=== PATIENT | female | born 1935 | race Caucasian/White ===

== ENCOUNTER 2017-07-23 10:48 | Inpatient (IN) | payer MEDICARE ==
[2017-07-23] MEDS ORDERED: HYDROmorphone 0.5 MG/0.5 ML SYRINGE ONE (11:42)
[2017-07-23] MEDS ORDERED: Gabapentin 300 MG CAP PO SCH (11:45)
[2017-07-23 11:48] LABS: #Lymphocytes 0.8 thou/uL (1.20-3.40); #Monocytes 0.5 thou/uL (0.11-0.59); #Neutrophils 9.4 thou/uL (1.40-6.50); %Basophils 0.1 % (0.0-1.0); %Eosinophils 0.2 % (0.0-10.0); %Lymphocytes 7.5 % (21.0-51.0); %Monocytes 4.8 % (0.0-10.0); %Neutrophils 87.4 % (42.0-75.0); Hemoglobin 15.5 g/dL (12.0-16.0); Mean Corpuscular HGB CONC 34.8 g/dL (32.0-36.0); Mean Corpuscular Hemoglobin 34.1 pg (27.0-31.0); Mean Corpuscular Volume 98.1 fl (81.0-99.0); Mean Platelet Volume 7.2 fL (7.4-10.4); Platelet Count 327 thou/uL (130-400); RBC Distribution Width 11.4 % (11.5-14.5); Red Blood Cell (RBC) Count 4.56 mill/uL (4.20-5.40); White Blood Cell (WBC) Count 10.8 thou/uL (4.8-10.8)
[2017-07-23 11:52] LABS: Bilirubin Negative (Negative); Blood, Urine Negative (Negative); Clarity CLEAR (Clear); Glucose, Urine (Dipstick) Negative (Negative); Leukocyte Small (Negative); Nitrite Negative (Negative); Protein, Urine (Dipstick) Negative (Neg-Trace); Specific Gravity, Urine 1.021 (1.002-1.036); Urobilinogen 0.2 mg/dL (0.2-1.0); pH, Urine 6.5 (5.0-9.0)
[2017-07-23 11:54] LABS: Bacteria/HPF None Seen HPF (None Seen); Hyaline Casts/LPF 0-3 HYALINE CAST LPF (0-3 Hyaline); Squamous Epithelial 0-3 HPF (0-3)
[2017-07-23 12:10] LABS: ALT (SGPT) 22 U/L (8-55); AST (SGOT) 14 U/L (5-34); Albumin 4.3 g/dL (3.4-4.8); Alkaline Phosphatase 76 U/L (40-150); Anion Gap 16 mmol/L (10-20); BUN (Urea Nitrogen) 18 mg/dL (9.8-20.1); Bilirubin, Total 0.6 mg/dL (0.2-1.2); Calc. Creatinine Clearance 0 mL/min (70-130); Calcium 9.6 mg/dL (7.8-10.44); Carbon Dioxide 21 mmol/L (23-31); Chloride 98 mmol/L (98-107); Estimated GFR-MDRD 69; Glucose 200 mg/dL (83-110); Potassium 3.9 mmol/L (3.5-5.1); Protein, Total 7.3 g/dL (6.0-8.3); Sodium 131 mmol/L (136-145)
[2017-07-23] MEDS ORDERED: Diazepam 5 MG TAB ONE (13:26)
[2017-07-23] MEDS ORDERED: Ondansetron HCl/PF 4 MG/2 ML Vial IVP PRN (17:08)
[2017-07-23] MEDS: HYDROcodone/Acetaminophen 10/325 mg Tablet PO PRN (17:44)
[2017-07-23 20:01] VITALS: BMI 28.3
[2017-07-23] MEDS: Docusate 100 MG CAP PO SCH (20:27)
[2017-07-23] MEDS: Gabapentin 100 MG CAP PO SCH (20:27)
[2017-07-23] MEDS: Fentanyl 100 MCG/2 ML VIAL SLOW IVP PRN (20:27)
[2017-07-23] MEDS: Famotidine/PF 20 mg/2ml Vial SLOW IVP SCH (20:27)
--- NOTE | 2017-07-23 23:59 | HP ---
DATE OF ADMISSION: 07/23/2017 CHIEF COMPLAINT: Left hip pain. HISTORY OF PRESENT ILLNESS: The patient is an 82-year-old female who had injection for brittney n management of her left hip/sciatica pain by Dr. Woods and soon after the shot, she developed quite severe pain in the left hip radiating down to the left knee, not further down than the knee. A pparently, she went to the emergency room and she was given Dilaudid and she was discharged on I kj keaton Lyrica and prednisone for 5 days, 20 mg. Also, she had hydrocodone 10/325 mg tablets, 1 tablet e very 4 hours p.r.n. as needed for the pain while at home. Subsequently, Dr. Woods called crow rm with ibuprofen prescription in and she took 3 doses of this. She is in severe pain. She rate s it at 10/10. She got to the emergency room and received Dilaudid and she felt better for approxima tely an hour and the pain came back. PAST MEDICAL HISTORY: Positive for, 1. Atrial fibrillation. 2. Hypothyroidism. 3. Hypertension. 4. Gastroesophageal reflux disease. 5. Chronic back pain. PAST SURGICAL HISTORY: Back surgery x3, knee replacement surgery, hysterectomy, bladder suspension, ear surgery, and foot surgery. FAMILY HISTORY: Mother and father at old age of unknown causes. ALLERGIES: MORPHINE, SULFA, AND PREDNISONE. SOCIAL HISTORY: She is an ex-smoker and ex-drinker. She quit several years ago. She does not use a ny illicit drugs. MEDICATIONS: She is on digoxin 0.25 mg once a day, valsartan 160 mg twice a day, alprazolam 0.5 mg t wice a day, Nexium 22.5 mg twice a day, Synthroid 50 mcg once a day, Pradaxa 150 mg twice a day, Patti lax, hydrocodone/APAP 10/325 mg, also on levofloxacin 500 mg once a day. Apparently, she has been tr eated for UTI with levofloxacin. REVIEW OF SYSTEMS: Constitutional: Negative for fever or chills. HEENT: Negative for headache or dizziness. Cardiovascular: Negative for chest pain or shortness of breath. Pulmonary: Negative fo r hemoptysis or cough. Gastrointestinal: Negative for nausea. Positive for constipation. Genitour inary: Negative for hematuria. Positive for dysuria, which improved. Neurologic: Positive for rut bility to walk secondary to amount of pain she has. Dermatologic: Negative for erythema or rash. P sychiatric: Negative for suicidal or homicidal ideations. PHYSICAL EXAMINATION: GENERAL: She is in pain during my visit. VITAL SIGNS: Blood pressure is 113/56, pulse is 85, respiratory rate is 14, and pulse oximetry is 94 % on room air. HEENT: Head is atraumatic, normocephalic. Eyes are PERRLA. Conjunctivae are pinkish. Oral mucosa is moist. NECK: Supple. No lymphadenopathy. Thyroid is not palpable. LUNGS: Clear. HEART: S1, S2 normal. No S3, no S4, but it is irregularly irregular. ABDOMEN: Soft, obese, nondistended. BACK: Lumbar area indentation in the mid lumbar area and scars from previous surgeries. EXTREMITIES: No clubbing, cyanosis, or edema. She has good strength in both lower extremities. She does not have any neurologic deficits. NEUROLOGIC: Neurological examination did not reveal any deficits. Cranial nerves are intact. Cereb ellar function is within normal limits. LABORATORY DATA: Showed a normal white count, normal hemoglobin and hematocrit, and normal platelet count. Chemistries showed sodium of 131, potassium 3.9, chloride 98, CO2 of 29, BUN 18, creatinine 0 .8, and glucose 200. Rest of chemistry within normal limits. Urinalysis shows small amount of leuko cyte esterases, 4-6 wbc's, otherwise within normal limits. IMAGING: None. IMPRESSION: 1. Left hip pain status post injection, unclear etiology. 2. Atrial fibrillation with controlled rate. 3. Hypothyroidism. 4. History of hyponatremia. 5. Hypertension. 6. Gastroesophageal reflux disease. 7. Chronic back pain. 8. Urinary tract infection. PLAN: Full admission to the hospital. Condition is fair. Activity, bed rest and bathroom privilege s. Anesthesia consult for pain management, most likely DIRECTOR OF CLINICAL EDUCATION. I contacted who is going to c all me back. I left a message to start this lady on pain management. I am starting her on gabapenti n 100 mg 3 times a day. She had 300 mg in the emergency room, one dose. She is a FULL CODE. Her singh rrogate decision maker is daughter, Savannah Pina. I am going to continue her Levaquin for her [place] I. Medications she is taking at home will be reconciled as soon as the list is available.
[2017-07-24] MEDS: Fentanyl 100 MCG/2 ML VIAL SLOW IVP PRN ×11 (00:15→22:23)
[2017-07-24] MEDS: HYDROcodone/Acetaminophen 10/325 mg Tablet PO PRN ×4 (04:50→16:15)
[2017-07-24] MEDS: Famotidine/PF 20 mg/2ml Vial SLOW IVP SCH ×2 (08:32→20:09)
[2017-07-24] MEDS: Gabapentin 100 MG CAP PO SCH ×3 (08:32→20:09)
[2017-07-24] MEDS: Docusate 100 MG CAP PO SCH ×2 (08:35→19:12)
[2017-07-24] MEDS ORDERED: Prevnar 13-Val Conj/PF 0.5 ML SYRINGE IM ONE (09:00)
--- NOTE | 2017-07-24 14:03 | MRI ---
MRI OF THE LUMBAR SPINE WITHOUT CONTRAST: HISTORY: Urinary retention. Back pain. COMPARISON: MRI lumbar spine dated 09/06/2014. TECHNIQUE: Multiplanar, multisequential images of the lumbar spine are obtained. FINDINGS: Severe compression deformity with retropulsion is seen involving the L1 vertebra. This was present o n the prior exam, and this does not appear significantly changed. There is an axial left device seen in place, transfixing S1, L5, and L4. This was present previously and does not appear significantly changed. At the L1 and L2 levels, there is severe compression on the thecal sac due to this retropulsion of th e L2 vertebra. This results in moderate central canal stenosis and is unchanged in appearance from t he prior exam. At L2-L3, slight retrolisthesis with mild disk bulge is present. Hypertrophic change is present. Fa cet hypertrophy. Mild central canal stenosis, which does not appear significantly changed from prior exam. At L3-L4, there is a new finding at this level when compared to the prior study. Broad-based bulge i s again noted but, on today's exam, there is an extruded disk fragment, which extrudes on the left an d has superior migration along the posterior margin of the L3 vertebra. This extruded fragment measu res approximately 7 to 8 mm in AP dimension and compresses the anterior thecal sac on the left, above the L3-L4 disk space. At the disk space level, there is moderate to severe central canal stenosis d ue to the diffuse disk bulge, facet hypertrophy, and posterior epidural lipomatosis. All these facto rs combine to compress the thecal sac. At L4-L5, mild central canal stenosis appears stable from prior exam. At L5-S1, no significant central canal stenosis. Findings appear stable from prior exam. IMPRESSION: 1. There is new disk extrusion at L3-L4. Extruded disk fragment is seen on the left at this level. with superior migration, as described above. Moderate to severe central canal stenosis at this level . 2. Severe compression of the L1 vertebra with retropulsion is again seen. This is a stable finding. 3. The other levels are as noted above and appear stable. POS: GARRY
--- NOTE | 2017-07-24 14:10 | MRI ---
PELVIC MRI WITH AND WITHOUT CONTRAST: INDICATIONS: Pelvic pain. FINDINGS: Moderate distention of the urinary bladder. No pelvic ascites. Regional marrow reveals no acute raj a. Hip joints reveal no evidence of abnormal effusion. No obvious inflammation at either trochanter ic bursa. No soft tissue abscess formation. Incidental note of colonic diverticulosis. IMPRESSION: No acute pelvic pathology is identified. POS: GARRY
--- NOTE | 2017-07-24 16:01 | PDOC.PN ---
- Subjective Encounter Start Date: 07/24/17 Encounter Start Time: 15:59 Patient seen at bedside. Returned from MRI, still with significant pain. - Objective Resuscitation Status: Resuscitation Status FULL:Full Resuscitation MAR Reviewed: Yes Vital Signs & Weight: Vital Signs (12 hours) Temp Pulse Resp BP Pulse Ox 07/24/17 12:00 97.5 F L 72 20 115/70 97 07/24/17 08:00 98.1 F 77 18 120/75 96 07/24/17 06:31 97.6 F 74 18 145/77 H 97 I&O: 07/23/17 07/24/17 07/25/17 06:59 06:59 06:59 Intake Total 250 Balance 250 Result Diagrams: 07/23/17 11:37 07/23/17 11:37 Phys Exam - Physical Examination Constitutional: NAD HEENT: moist MMs Neck: no JVD Respiratory: clear to auscultation bilateral Cardiovascular: RRR Gastrointestinal: soft Pain on ROM in LLE Neurological: normal sensation, moves all 4 limbs Psychiatric: normal affect, A&O x 3 Dx/Plan (1) Left hip pain Code(s): M25.552 - PAIN IN LEFT HIP Status: Acute (2) Atrial fibrillation Code(s): I48.91 - UNSPECIFIED ATRIAL FIBRILLATION Status: Chronic (3) Spinal stenosis Code(s): M48.00 - SPINAL STENOSIS, SITE UNSPECIFIED Status: Chronic (4) UTI (urinary tract infection) Status: Acute - Plan cont current plan of care, plan discussed w/ family, continue antibiotics, PT/OT , social services designee * Continue with pain control. 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
[2017-07-25] MEDS: HYDROcodone/Acetaminophen 10/325 mg Tablet PO PRN ×7 (00:39→22:36)
[2017-07-25] MEDS: Fentanyl 100 MCG/2 ML VIAL SLOW IVP PRN ×6 (03:16→13:30)
[2017-07-25] MEDS: Digoxin 0.25 MG TAB PO SCH (07:11)
[2017-07-25] MEDS: Famotidine/PF 20 mg/2ml Vial SLOW IVP SCH (07:11)
[2017-07-25] MEDS: Gabapentin 100 MG CAP PO SCH ×2 (07:11→14:57)
[2017-07-25] MEDS: Docusate 100 MG CAP PO SCH ×2 (07:11→21:15)
[2017-07-25] MEDS ORDERED: hydrALAZINE 20 MG/ML VIAL SLOW IVP PRN (09:49)
[2017-07-25] MEDS ORDERED: Sodium Chloride 0.65% Nasal 44 ML BOT EA NARE PRN (09:49)
[2017-07-25] MEDS ORDERED: Loratadine 10 MG TAB PO PRN (09:49)
[2017-07-25] MEDS ORDERED: Ondansetron ODT 4 MG TAB PO PRN (09:49)
[2017-07-25] MEDS ORDERED: Milk Of Magnesia 30 ML UDCUP PO PRN (09:49)
[2017-07-25] MEDS ORDERED: Eucerin (Mineral Oil/Petrolatum,White) 30 gm Jar TOP PRN (09:49)
[2017-07-25] MEDS ORDERED: Diabetic Tussin 200 MG/10 ML UDCUP PO PRN (09:49)
[2017-07-25] MEDS ORDERED: Acetaminophen 325 MG TAB PO PRN (09:49)
[2017-07-25] MEDS ORDERED: Artificial Tear Sol 15 ML BOT EA EYE PRN (09:49)
[2017-07-25] MEDS ORDERED: Loperamide HCl 2 MG CAP PO PRN (09:49)
[2017-07-25] MEDS ORDERED: Mag-Al 1200 mg/1200 mg/30 ML UDCUP PO PRN (09:49)
[2017-07-25] MEDS ORDERED: Chloraseptic Spray 180 ml Bottle PO PRN (09:49)
[2017-07-25] MEDS ORDERED: Temazepam 15 MG CAP PO PRN (09:49)
[2017-07-25] MEDS ORDERED: Polyethylene Glycol 3350 17 GM Packet PO PRN (09:50)
[2017-07-25] MEDS ORDERED: Fentanyl 100 MCG/2 ML VIAL SLOW IVP SCH (11:15)
--- NOTE | 2017-07-25 12:11 | PDOC.PN ---
- Subjective Encounter Start Date: 07/25/17 Encounter Start Time: 08:25 -: old records requested/rev Patient seen and examined. has severe left hip pain and anterior thigh pain. No overnight events - Objective Resuscitation Status: Resuscitation Status FULL:Full Resuscitation MAR Reviewed: Yes Vital Signs & Weight: Vital Signs (12 hours) Temp Pulse Resp BP Pulse Ox 07/25/17 08:00 98.3 F 87 18 117/76 87 L 07/25/17 07:11 88 07/25/17 06:45 97.8 F 75 20 115/78 99 I&O: 07/24/17 07/25/17 07/26/17 06:59 06:59 06:59 Intake Total 250 400 Balance 250 400 Result Diagrams: 07/23/17 11:37 07/23/17 11:37 Radiology Reviewed by me: Yes (mri and ls spine) Phys Exam - Physical Examination Constitutional: NAD HEENT: PERRLA, moist MMs, sclera anicteric Neck: no JVD, supple Respiratory: no wheezing, no rales, no rhonchi Cardiovascular: RRR, no significant murmur, no rub Gastrointestinal: soft, non-tender, no distention, positive bowel sounds Musculoskeletal: no edema, pulses present Neurological: non-focal, normal sensation Lymphatic: no nodes Psychiatric: normal affect Skin: no rash, normal turgor Dx/Plan (1) Lumbar disc herniation with radiculopathy Code(s): M51.16 - INTERVERTEBRAL DISC DISORDERS W RADICULOPATHY, LUMBAR REGION Status: Acute (2) Hyponatremia Code(s): E87.1 - HYPO-OSMOLALITY AND HYPONATREMIA Status: Acute (3) Left hip pain Code(s): M25.552 - PAIN IN LEFT HIP Status: Acute (4) Anxiety and depression Code(s): F41.8 - OTHER SPECIFIED ANXIETY DISORDERS Status: Chronic (5) Atrial fibrillation Code(s): I48.91 - UNSPECIFIED ATRIAL FIBRILLATION Status: Chronic (6) Hypothyroidism Code(s): E03.9 - HYPOTHYROIDISM, UNSPECIFIED Status: Chronic (7) Spinal stenosis Code(s): M48.00 - SPINAL STENOSIS, SITE UNSPECIFIED Status: Chronic (8) UTI (urinary tract infection) Status: Suspected - Plan cont current plan of care, plan discussed w/ family, PT/OT * continue pain control with fentanyl * will consult dr Jacques * Neurosurgeon consulted. * may need rehab on discharge * medication reviewed as below * symptomatic treatment Review of Systems - Review of Systems ENT: negative: Ear Pain, Ear Discharge, Nose Pain, Nose Discharge, Nose Congestion, Mouth Pain, Mouth Swelling, Throat Pain, Throat Swelling, Other Respiratory: negative: Cough, Dry, Shortness of Breath, Hemoptysis, SOB with Excertion, Pleuritic Pain, Sputum, Wheezing Cardiovascular: negative: chest pain, palpitations, orthopnea, paroxysmal nocturnal dyspnea, edema, light headedness, other Gastrointestinal: negative: Nausea, Vomiting, Abdominal Pain, Diarrhea, Constipation, Melena, Hematochezia, Other Genitourinary: negative: Dysuria, Frequency, Incontinence, Hematuria, Retention , Other Musculoskeletal: Back Pain. negative: Neck Pain, Shoulder Pain, Arm Pain, Hand Pain, Leg Pain, Foot Pain, Other Skin: negative: Rash, Lesions, Oliver, Bruising, Other Neurological: negative: Weakness, Numbness, Incoordination, Change in Speech, Confusion, Seizures, Other - Medications/Allergies Allergies/Adverse Reactions: Allergies Allergy/AdvReac Type Severity Reaction Status Date / Time morphine Allergy Verified 05/17/15 07:02 prednisone Allergy Verified 05/17/15 07:02 Sulfa (Sulfonamide Allergy Verified 05/17/15 07:02 Antibiotics) Medications: Current Medications Acetaminophen (Tylenol) 650 mg PO Q4H PRN PRN Reason: Headache/Fever or Mild Pain Hydrocodone Bitart/Acetaminophen ([place] 10/325) 1 tab PO Q4H PRN PRN Reason: Moderate Pain (4-6) Last Admin: 07/25/17 11:49 Dose: 1 tab Al Hydroxide/Mg Hydroxide (Maalox) 15 ml PO Q4H PRN PRN Reason: Heartburn or Indigestion Alprazolam (Xanax) 0.5 mg PO BID [facility] Artificial Tears (Tears Renewed 15ml Bottle) 0 drop EA EYE PRN PRN PRN Reason: Dry Eyes Digoxin (Lanoxin) 0.25 mg PO DAILY [facility] Last Admin: 07/25/17 07:11 Dose: 0.25 mg Docusate Sodium (Colace) 100 mg PO BID [facility] Last Admin: 07/25/17 07:11 Dose: 100 mg Famotidine (Pepcid) 20 mg PO DAILY [facility] Fentanyl (Sublimaze) 50 mcg SLOW IVP Q2H PRN PRN Reason: Severe Pain (7-10) Last Admin: 07/25/17 11:08 Dose: 50 mcg Fentanyl (Sublimaze) 50 mcg SLOW IVP NOW JARROD Stop: 07/25/17 13:15 Last Admin: 07/25/17 11:31 Dose: Not Given Fentanyl (Duragesic) 25 mcg TD Q3D [facility] Gabapentin (Neurontin) 100 mg PO TID [facility] Last Admin: 07/25/17 07:11 Dose: 100 mg Guaifenesin (Robitussin Sf) 200 mg PO Q4H PRN PRN Reason: Cough Hydralazine HCl (Apresoline) 10 mg SLOW IVP Q4H PRN PRN Reason: Systolic BP > 180 Levofloxacin (Levaquin) 500 mg PO 1800 JARROD Last Admin: 07/24/17 18:11 Dose: 500 mg Levothyroxine Sodium (Synthroid) 50 mcg PO 0600 [facility] Loperamide HCl (Imodium) 2 mg PO PRN PRN PRN Reason: Diarrhea/Loose Stools Loratadine (Claritin) 10 mg PO DAILYPRN PRN PRN Reason: Sinus Symptoms Magnesium Hydroxide (Milk Of Magnesium) 30 ml PO DAILYPRN PRN PRN Reason: Constipation Mineral Oil/White Petrolatum (Eucerin Cream) 0 gm TOP BIDPRN PRN PRN Reason: Dry Skin Ondansetron HCl (Zofran) 4 mg IVP Q6H PRN PRN Reason: Nausea/Vomiting Last Admin: 07/25/17 09:19 Dose: 4 mg Ondansetron HCl (Zofran Odt) 4 mg PO Q6H PRN PRN Reason: Nausea/Vomiting Phenol (Chloraseptic [place] 180 Ml Bot) 0 ml PO PRN PRN PRN Reason: Sore Throat Polyethylene Glycol (Miralax) 17 gm PO DAILY PRN PRN Reason: Constipation Sodium Chloride ([place] Nasal [place] 0.65%) 0 ml EA NARE QIDPRN PRN PRN Reason: Nasal Congestion Temazepam (Restoril) 15 mg PO HSPRN PRN PRN Reason: Insomnia
[2017-07-25] MEDS ORDERED: HYDROcodone/Acetaminophen 10/325 mg Tablet PO SCH (18:30)
[2017-07-25] MEDS ORDERED: HYDROcodone/Acetaminophen 10/325 mg Tablet PO PRN (19:55)
[2017-07-25] MEDS ORDERED: Gabapentin 300 MG CAP PO SCH ×2 (20:00→21:00)
[2017-07-25] MEDS: ALPRAZolam 0.25 MG TAB PO SCH (21:15)
--- NOTE | 2017-07-26 00:50 | CON ---
DATE OF CONSULTATION: 07/25/2017 HISTORY OF PRESENT ILLNESS: Ms. Santacruz is an 82-year-old woman who is actually known to our practice under Dr. Malagon for previous evaluation of low back pain in 2012 and was ultimately referred for con servative measurements with Dr. Woods, which included injections and that seem to chantel her pro blems at that time. She more recently continues to biggs lumbar back problems and radicular pains a nd most recently, had an injection on Tuesday with Dr. Woods, which she states within several h ours afterwards she began to develop profound severe left hip and anterior thigh pains coming down to the knee. When I am speaking to her at bedside, she is really unable to coherently communicate lilly use she is in such terrific pain. She is constantly moving. She is in very obvious distress, moanin g and screaming and asking for additional pain control measures. I am unable to get any reliable exa mination citing her pain level, but it is obvious that she has had minimum an L3 radiculopathy if not potentially parts of a partial L4 radiculopathy. She denies any numbness or tingling, just profound pain. She does have an MRI that was performed yesterday here in the hospital that revealed a new L3 disk extrusion with superior migration behind the vertebral body that is impacting the descending L3 nerve root at that level before it exits on the left, which would fit her pain symptoms. This very likely is the source of her predicament. I did not discuss with her very much any plan or recommenda tion other than acute pain control at that moment. I understand that Pain Management and Anesthesia have been consulted in house to see about potentially starting a FORESTRY TECHNICAL OFFICER. I think from the neurosurgical standpoint, if the patient achieves adequate pain control at some point during her hospital stay and is stable enough to be discharged, then we follow up with her outpatient. If attempts at pain contr ol were unsuccessful across the board, then we could feasibly discuss inpatient surgery potentially a s early as Tuesday, which should be a right L3 diskectomy. I will discuss this with Dr. Malagon and follow up tomorrow to see if we can achieve better pain control for her. In the meantime, we will or jadon a stat dose of 50 mcg of fentanyl IV and then an hour and a half later consider a 25 mcg an hour of fentanyl patch.
[2017-07-26] MEDS: Levothyroxine Sodium 50 MCG TAB PO SCH (05:27)
[2017-07-26] MEDS: HYDROcodone/Acetaminophen 10/325 mg Tablet PO PRN ×5 (05:28→23:00)
[2017-07-26] MEDS: Docusate 100 MG CAP PO SCH ×2 (09:28→20:15)
[2017-07-26] MEDS: Digoxin 0.25 MG TAB PO SCH (09:28)
[2017-07-26] MEDS: ALPRAZolam 0.25 MG TAB PO SCH ×2 (09:29→20:14)
[2017-07-26] MEDS: Famotidine 20 MG TAB PO SCH (09:29)
[2017-07-26] MEDS: Gabapentin 300 MG CAP PO SCH ×3 (09:29→20:15)
--- NOTE | 2017-07-26 10:34 | PDOC.PN ---
- Subjective Encounter Start Date: 07/26/17 Encounter Start Time: 08:40 Patient seen and examined. No new complaints. No overnight events - Objective Resuscitation Status: Resuscitation Status FULL:Full Resuscitation MAR Reviewed: Yes Vital Signs & Weight: Vital Signs (12 hours) Temp Pulse Resp BP Pulse Ox 07/26/17 09:28 69 07/26/17 08:00 98.3 F 69 20 103/71 99 07/26/17 04:19 98.0 F 67 18 113/60 99 I&O: 07/25/17 07/26/17 07/27/17 06:59 06:59 06:59 Intake Total 400 240 Balance 400 240 Result Diagrams: 07/23/17 11:37 07/23/17 11:37 Phys Exam - Physical Examination Constitutional: NAD HEENT: PERRLA, moist MMs, sclera anicteric Neck: no JVD, supple Respiratory: no wheezing, no rales, no rhonchi Cardiovascular: RRR, no significant murmur, no rub Gastrointestinal: soft, non-tender, no distention, positive bowel sounds Musculoskeletal: no edema, pulses present Neurological: non-focal, normal sensation, moves all 4 limbs Psychiatric: normal affect, A&O x 3 Skin: no rash, normal turgor Dx/Plan (1) Lumbar disc herniation with radiculopathy Code(s): M51.16 - INTERVERTEBRAL DISC DISORDERS W RADICULOPATHY, LUMBAR REGION Status: Acute (2) Hyponatremia Code(s): E87.1 - HYPO-OSMOLALITY AND HYPONATREMIA Status: Acute (3) Left hip pain Code(s): M25.552 - PAIN IN LEFT HIP Status: Acute (4) Anxiety and depression Code(s): F41.8 - OTHER SPECIFIED ANXIETY DISORDERS Status: Chronic (5) Atrial fibrillation Code(s): I48.91 - UNSPECIFIED ATRIAL FIBRILLATION Status: Chronic (6) Hypothyroidism Code(s): E03.9 - HYPOTHYROIDISM, UNSPECIFIED Status: Chronic (7) Spinal stenosis Code(s): M48.00 - SPINAL STENOSIS, SITE UNSPECIFIED Status: Chronic (8) UTI (urinary tract infection) Status: Suspected - Plan cont current plan of care, plan discussed w/ family, PT/OT, social work professor * currently off anticoagulation as pt will need surgery * neurosurgeon may do L3 microdisectomy tomorrow * collin pain is controlled only with not doing any activity but movement precipitates pain * start PT/OT and consult rehab * medication reviewed as below * symptomatic treatment. Review of Systems - Review of Systems Constitutional: negative: fever, chills, sweats, weakness, malaise, other Eyes: negative: Pain, Vision Change, Conjunctivae Inflammation, Eyelid Inflammation, Redness, Other ENT: negative: Ear Pain, Ear Discharge, Nose Pain, Nose Discharge, Nose Congestion, Mouth Pain, Mouth Swelling, Throat Pain, Throat Swelling, Other Respiratory: negative: Cough, Dry, Shortness of Breath, Hemoptysis, SOB with Excertion, Pleuritic Pain, Sputum, Wheezing Cardiovascular: negative: chest pain, palpitations, orthopnea, paroxysmal nocturnal dyspnea, edema, light headedness, other Gastrointestinal: negative: Nausea, Vomiting, Abdominal Pain, Diarrhea, Constipation, Melena, Hematochezia, Other Genitourinary: negative: Dysuria, Frequency, Incontinence, Hematuria, Retention , Other Musculoskeletal: Back Pain, Leg Pain. negative: Neck Pain, Shoulder Pain, Arm Pain, Hand Pain, Foot Pain, Other - Medications/Allergies Allergies/Adverse Reactions: Allergies Allergy/AdvReac Type Severity Reaction Status Date / Time morphine Allergy Verified 05/17/15 07:02 prednisone Allergy Verified 05/17/15 07:02 Sulfa (Sulfonamide Allergy Verified 05/17/15 07:02 Antibiotics) Medications: Current Medications Acetaminophen (Tylenol) 650 mg PO Q4H PRN PRN Reason: Headache/Fever or Mild Pain Hydrocodone Bitart/Acetaminophen ([place] 10/325) 1 tab PO Q4H PRN PRN Reason: BREAKTHRU Mild-Mod Pain (1-5) Hydrocodone Bitart/Acetaminophen ([place] 10/325) 2 tab PO Q4H PRN PRN Reason: BREAKTHRU MOD-SEV Pain (6-10) Last Admin: 07/26/17 09:28 Dose: 2 tab Al Hydroxide/Mg Hydroxide (Maalox) 15 ml PO Q4H PRN PRN Reason: Heartburn or Indigestion Alprazolam (Xanax) 0.5 mg PO BID JARROD Last Admin: 07/26/17 09:29 Dose: 0.5 mg Artificial Tears (Tears Renewed 15ml Bottle) 0 drop EA EYE PRN PRN PRN Reason: Dry Eyes Digoxin (Lanoxin) 0.25 mg PO DAILY [facility] Last Admin: 07/26/17 09:28 Dose: 0.25 mg Docusate Sodium (Colace) 100 mg PO BID [facility] Last Admin: 07/26/17 09:28 Dose: 100 mg Famotidine (Pepcid) 20 mg PO DAILY [facility] Last Admin: 07/26/17 09:29 Dose: 20 mg Fentanyl (Duragesic) 25 mcg TD Q3D [facility] Last Admin: 07/25/17 12:16 Dose: 25 mcg Gabapentin (Neurontin) 300 mg PO TID [facility] Last Admin: 07/26/17 09:29 Dose: 300 mg Guaifenesin (Robitussin Sf) 200 mg PO Q4H PRN PRN Reason: Cough Hydralazine HCl (Apresoline) 10 mg SLOW IVP Q4H PRN PRN Reason: Systolic BP > 180 Levofloxacin (Levaquin) 500 mg PO 1800 [facility] Last Admin: 07/25/17 17:54 Dose: 500 mg Levothyroxine Sodium (Synthroid) 50 mcg PO 0600 [facility] Last Admin: 07/26/17 05:27 Dose: 50 mcg Loperamide HCl (Imodium) 2 mg PO PRN PRN PRN Reason: Diarrhea/Loose Stools Loratadine (Claritin) 10 mg PO DAILYPRN PRN PRN Reason: Sinus Symptoms Magnesium Hydroxide (Milk Of Magnesium) 30 ml PO DAILYPRN PRN PRN Reason: Constipation Mineral Oil/White Petrolatum (Eucerin Cream) 0 gm TOP BIDPRN PRN PRN Reason: Dry Skin Miscellaneous Medication (Movantik) 12.5 mg PO QAM [facility] Ondansetron HCl (Zofran) 4 mg IVP Q6H PRN PRN Reason: Nausea/Vomiting Last Admin: 07/25/17 09:19 Dose: 4 mg Ondansetron HCl (Zofran Odt) 4 mg PO Q6H PRN PRN Reason: Nausea/Vomiting Phenol (Chloraseptic [place] 180 Ml Bot) 0 ml PO PRN PRN PRN Reason: Sore Throat Polyethylene Glycol (Miralax) 17 gm PO DAILY PRN PRN Reason: Constipation Sodium Chloride ([place] Nasal [place] 0.65%) 0 ml EA NARE QIDPRN PRN PRN Reason: Nasal Congestion Temazepam (Restoril) 15 mg PO HSPRN PRN PRN Reason: Insomnia
--- NOTE | 2017-07-26 14:54 | PRG ---
DATE OF SERVICE: 07/26/2017 Ms. Santacruz is an 82-year-old woman who is now on third day of her hospital day, Elda Otoole from pain management did come by and adjusted her medications. Unfortunately, it seems like it had not made t oo much of a difference and she continues to be in profound pain. I discussed with her the possibili ty of performing a surgery inpatient which will be an L3 diskectomy on the left. She is very despera te and hopes that this will happen and will need to clear with OR and with Dr. Malagon. This is approp gayatri and will plan accordingly.
[2017-07-27 04:56] LABS: Anion Gap 12 mmol/L (10-20); BUN (Urea Nitrogen) 14 mg/dL (9.8-20.1); Calc. Creatinine Clearance 68 mL/min (70-130); Calcium 9.4 mg/dL (7.8-10.44); Carbon Dioxide 29 mmol/L (23-31); Chloride 98 mmol/L (98-107); Estimated GFR-MDRD 73; Glucose 121 mg/dL (83-110); Potassium 4.6 mmol/L (3.5-5.1); Sodium 134 mmol/L (136-145)
[2017-07-27] MEDS: Levothyroxine Sodium 50 MCG TAB PO SCH (05:13)
[2017-07-27] MEDS: HYDROcodone/Acetaminophen 10/325 mg Tablet PO PRN (06:18)
--- NOTE | 2017-07-27 07:37 | PRG ---
DATE OF SERVICE: 07/27/2017 Ms. Santacruz is an 82-year-old female known to me for a previous lumbar spine procedure as well as subs equent outpatient evaluation. She presents to the ER now a few days ago with severe left lower extre mity pain. She had an MRI scan performed which revealed the presence of a disk herniation just behin d the body of L3-4 segment which could impact predominantly the L4 nerve root which corresponds very well with her pattern of pain. It has been a struggle for her to get adequate pain control up until last 12-24 hours. I met with her today and one of her daughters and she is currently resting quite c omfortably in bed, although clearly she has been treated with opioids. I discussed with her her diagnoses, her imaging, as well as the clinical exam correlation and she wou ld like to move forward with surgery, which I believe is reasonable given the struggles with adequate pain control. The plan will be a left-sided L4 diskectomy. I reviewed with her and her daughter rohan valentine the risks, benefits, and alternatives to treatment. I answered all their questions. She provided informed consent.
[2017-07-27] MEDS ORDERED: Bupivacaine/Epinephrine 0.25% 30 ML VIAL ONE (10:34)
[2017-07-27] MEDS ORDERED: Fentanyl 100 MCG/2 ML VIAL ONE ×2 (10:46→12:31)
[2017-07-27] MEDS ORDERED: CEFAZOLIN/Water 2 GM/20 ML SYRINGE ONE (10:50)
[2017-07-27] MEDS ORDERED: Promethazine HCl 25 MG/ML VIAL SLOW IVP PRN (11:32)
--- NOTE | 2017-07-27 12:29 | OP ---
DATE OF OPERATION: 07/27/2017 SURGEON: Lj Malagon M.D. [employer] OPERATOR: Michael Irvin PA-C. INDICATION: Pain. DIAGNOSIS: Lumbar radiculopathy. PROCEDURE: Left L3 laminectomy and diskectomy. ANESTHESIA: General. TECHNIQUE: The patient was brought into the operating room and placed under general anesthesia. She was flipped from a supine to a prone position on the operating room table. A portion of an old line ar incision was identified and prepped and draped in the usual sterile fashion. Following an appropr iate operative pause, the incision was created. The soft tissues were swept left of midline. Self-r etaining retractors were placed in the wound for optimal exposure. After confirming the L3-L4 segmen t with C-arm fluoroscopy, a high-speed cutting drill bit as well as 2, 3, and 4-mm Kerrisons were use d to perform laminectomy along the inferior aspect of L3. The medial aspect of the L3-L4 facet joint was also removed. The descending L4 nerve root as well as the exiting L3 nerve root were identified . Extruded disk fragments were identified up near the foramen of the exiting L3 nerve root. Several disk fragments were removed until there was decompression of that segment. The wound was irrigated. Hemostasis was maintained throughout. The wound was then closed in anatomic layers and a pressure dressing was applied. There were no known procedural complications.
[2017-07-27] MEDS ORDERED: HYDROmorphone 0.5 MG/0.5 ML SYRINGE ONE ×2 (12:45→13:00)
[2017-07-27] MEDS ORDERED: HYDROmorphone 2 MG/ML VIAL SLOW IVP PRN (12:46)
[2017-07-27] MEDS ORDERED: Glycopyrrolate 0.2 MG/ML 5 ML SYRINGE ONE (13:00)
[2017-07-27] MEDS ORDERED: PROPOFOL 200 MG/20 ML VIAL ONE (13:00)
[2017-07-27] MEDS ORDERED: Lidocaine 1% PF 5 ML VIAL ONE (13:00)
[2017-07-27] MEDS ORDERED: PHENYLEPHRINE-NS 100 MCG/ML 10 ML SYRINGE ONE (13:00)
[2017-07-27] MEDS ORDERED: Ondansetron HCl/PF 4 MG/2 ML Vial ONE (13:00)
[2017-07-27] MEDS ORDERED: Acetaminophen 650 MG Suppository PR PRN (13:58)
[2017-07-27] MEDS ORDERED: Prochlorperazine 10 MG/2 ML VIAL IM PRN (13:58)
[2017-07-27] MEDS ORDERED: tiZANidine HCl 4 MG TAB PO PRN (13:58)
[2017-07-27] MEDS ORDERED: Mag-Al 1200 mg/1200 mg/30 ML UDCUP PO PRN (13:58)
[2017-07-27] MEDS ORDERED: diphenhydrAMINE 25 MG CAP PO PRN (13:58)
[2017-07-27] MEDS ORDERED: Bisacodyl 10 MG SUPP PR PRN (13:58)
[2017-07-27] MEDS ORDERED: diphenhydrAMINE 50 MG/ML VIAL IVP PRN (13:58)
[2017-07-27] MEDS ORDERED: Acetaminophen 325 MG TAB PO PRN (13:58)
[2017-07-27] MEDS ORDERED: Acetaminophen/Codeine 30-300mg Tablet PO PRN (13:58)
[2017-07-27] MEDS ORDERED: Ondansetron HCl/PF 4 MG/2 ML Vial IM PRN (14:00)
[2017-07-27] MEDS: Gabapentin 300 MG CAP PO SCH ×3 (14:48→20:15)
[2017-07-27] MEDS: Docusate 100 MG CAP PO SCH ×2 (14:48→20:16)
[2017-07-27] MEDS: ALPRAZolam 0.25 MG TAB PO SCH ×2 (14:48→20:16)
[2017-07-27] MEDS: Famotidine 20 MG TAB PO SCH (14:48)
[2017-07-27] MEDS: Acetaminophen/Codeine 30-300mg Tablet PO PRN ×2 (16:07→20:14)
[2017-07-27] MEDS: Digoxin 0.25 MG TAB PO SCH (16:08)
--- NOTE | 2017-07-27 16:10 | PDOC.PN ---
- Subjective Encounter Start Date: 07/27/17 Encounter Start Time: 16:09 Subjective: some post opdiscomfort - Objective Resuscitation Status: Resuscitation Status FULL:Full Resuscitation Vital Signs & Weight: Vital Signs (12 hours) Temp Pulse Resp BP Pulse Ox 07/27/17 15:55 97.6 F 79 16 123/77 97 07/27/17 08:00 98.5 F 79 18 96 07/27/17 07:17 98.5 F 79 18 137/86 93 L I&O: 07/26/17 07/27/17 07/28/17 06:59 06:59 06:59 Intake Total 240 360 Balance 240 360 Result Diagrams: 07/23/17 11:37 07/27/17 04:10 Phys Exam - Physical Examination Neck: no JVD Respiratory: clear to auscultation bilateral Cardiovascular: RRR, no significant murmur Gastrointestinal: soft, non-tender, positive bowel sounds Musculoskeletal: no edema, pulses present Dx/Plan (1) Lumbar disc herniation with radiculopathy Code(s): M51.16 - INTERVERTEBRAL DISC DISORDERS W RADICULOPATHY, LUMBAR REGION Status: Acute (2) Anxiety and depression Code(s): F41.8 - OTHER SPECIFIED ANXIETY DISORDERS Status: Chronic (3) Atrial fibrillation Code(s): I48.91 - UNSPECIFIED ATRIAL FIBRILLATION Status: Chronic (4) Hypothyroidism Code(s): E03.9 - HYPOTHYROIDISM, UNSPECIFIED Status: Chronic (5) HTN (hypertension) Code(s): I10 - ESSENTIAL (PRIMARY) HYPERTENSION Status: Chronic Qualifiers: Hypertension type: essential hypertension Qualified Code(s): I10 - Essential (primary) hypertension - Plan post op L spine surgery -: analgesia per NS -: selected home meds * .
[2017-07-27] MEDS: Sodium Chloride 0.9% 1,000 ML IV SCH (16:14)
[2017-07-27] MEDS: CEFAZOLIN/Water 2 GM/20 ML SYRINGE SLOW IVP SCH (18:06)
[2017-07-28] MEDS: CEFAZOLIN/Water 2 GM/20 ML SYRINGE SLOW IVP SCH (02:07)
[2017-07-28] MEDS: Acetaminophen/Codeine 30-300mg Tablet PO PRN ×4 (02:14→20:00)
[2017-07-28] MEDS: Sodium Chloride 0.9% 1,000 ML IV SCH (02:15)
[2017-07-28] MEDS: Levothyroxine Sodium 50 MCG TAB PO SCH (05:48)
--- NOTE | 2017-07-28 08:16 | PRG ---
DATE OF SERVICE: 07/28/2017 Ms. Santacruz is a now postop day #1 following lumbar decompression and diskectomy yesterday. She is do ing extraordinarily well. She has some lower back pain around the incision site, which is certainly to be expected with her kind of surgery, but overall her radicular symptoms are essentially resolved. She has already been up walking and has done well with that. She is eating at the bedside and look s much more comfortable. I think that she can certainly go home today as long as she ambulates well with the nursing staff. I have already communicated this to Aimee, her nurse for the day, and sherman richardson PT and OT will be seeing her as well. As long as she is stable I think she can get out as early as this afternoon.
[2017-07-28] MEDS: Gabapentin 300 MG CAP PO SCH ×3 (09:17→20:01)
[2017-07-28] MEDS: ALPRAZolam 0.25 MG TAB PO SCH ×2 (09:17→20:01)
[2017-07-28] MEDS: Famotidine 20 MG TAB PO SCH (09:17)
[2017-07-28] MEDS: Docusate 100 MG CAP PO SCH ×2 (09:17→20:01)
[2017-07-28] MEDS: Digoxin 0.25 MG TAB PO SCH (09:18)
[2017-07-28] MEDS ORDERED: Ketorolac Tromethamine 30 MG/ML VIAL IM SCH (11:15)
--- NOTE | 2017-07-28 18:14 | PDOC.PN ---
- Subjective Encounter Start Date: 07/28/17 Encounter Start Time: 11:30 states she is in alot of pain after undergoing PT earler this morning - Objective Resuscitation Status: Resuscitation Status FULL:Full Resuscitation Vital Signs & Weight: Vital Signs (12 hours) Temp Pulse Resp BP BP Pulse Ox 07/28/17 16:26 98.2 F 70 18 104/67 93 L 07/28/17 11:03 98.2 F 75 18 101/65 94 L 07/28/17 09:18 88 07/28/17 08:00 98.2 F 75 18 114/63 95 I&O: 07/27/17 07/28/17 07/29/17 06:59 06:59 06:59 Intake Total 360 1260 Balance 360 1260 Result Diagrams: 07/23/17 11:37 07/27/17 04:10 Phys Exam - Physical Examination Constitutional: NAD HEENT: PERRLA, moist MMs, sclera anicteric, oral pharynx no lesions Neck: no nodes, no JVD, supple Respiratory: no wheezing, clear to auscultation bilateral Cardiovascular: RRR, no significant murmur Gastrointestinal: soft, non-tender, no distention, positive bowel sounds Musculoskeletal: no edema, pulses present Neurological: non-focal, moves all 4 limbs Psychiatric: normal affect, A&O x 3 Skin: cap refill <2 seconds Dx/Plan (1) Lumbar disc herniation with radiculopathy Code(s): M51.16 - INTERVERTEBRAL DISC DISORDERS W RADICULOPATHY, LUMBAR REGION Status: Acute (2) Anxiety and depression Code(s): F41.8 - OTHER SPECIFIED ANXIETY DISORDERS Status: Chronic (3) Atrial fibrillation Code(s): I48.91 - UNSPECIFIED ATRIAL FIBRILLATION Status: Chronic (4) HTN (hypertension) Code(s): I10 - ESSENTIAL (PRIMARY) HYPERTENSION Status: Chronic Qualifiers: Hypertension type: essential hypertension Qualified Code(s): I10 - Essential (primary) hypertension (5) Hypothyroidism Code(s): E03.9 - HYPOTHYROIDISM, UNSPECIFIED Status: Chronic - Plan cont current plan of care, plan discussed w/ family, PT/OT * . plan was to dc patient home with home health but have changed their mind and want rehab instead. pending rehab approval
[2017-07-29] MEDS: Acetaminophen/Codeine 30-300mg Tablet PO PRN ×3 (02:31→13:03)
--- NOTE | 2017-07-29 05:59 | DIS ---
DISCHARGE DIAGNOSES: 1. Lumbar disk herniation with radiculopathy. 2. Anxiety and depression. 3. Atrial fibrillation. 4. Hypothyroidism. 5. Hypertension. HOSPITAL COURSE: While the patient was in the hospital, the patient was treated medically initially with pain management. The patient has also had physical therapy to see the patient. Even with the pain medications, physical therapy, the patient's symptoms were still uncontrolled. She was still complaining of 10/10 of pain. Due to this, Dr. Irvin was consulted for his expertise. After evaluating the patient, it was felt that the patient would benefit significantly from lumbar disk compression as well as diskectomy. The patient underwent this procedure yesterday, for which the patient tolerated well. Prior to the procedure, the patient had her blood thinners held to reduce the risk of bleeding. She did not develop any significant bleeding during the procedure. The patient was monitored the day after, for which the patient stated her symptoms had significantly improved. She had worked with physical therapy, for which she did well. She required minimal to no assist. The patient's pain medications were adjusted by myself as well as Dr. Irvin. On this, the patient is doing significantly well and the patient being hemodynamically stable, we will comfortable discharging the patient home with physical therapy and home health. She was to continue taking her pain medications that were prescribed to her, which included tizanidine, Tylenol #4 as well as gabapentin. She has a pain management doctor by the name of Dr. Woods, for which she can follow up with. She will also follow up with Dr. Irvin as per his recommendations as well as primary care physician in 1 week. This was expressed that patient importance of following with physicians as well as continuing with physical therapy. The family was at bedside at the time of this discussion for which they had agreed with. Due to the patient's understanding discussed with her and scripts were given, the patient will be safely discharged later this evening. Update: Prior to Discharge, the patient and family decided on inpt rehab instead of home. CM was consulted who arranged for rehab evaluation. Patient was approved the next day so the patient was discharged then in stable condition DISCHARGE CONDITION: Much improved when she first came in. DISCHARGE DISPOSITION: Home with home health. DISCHARGE ACTIVITY: As tolerated. DISCHARGE MEDICATIONS: Please see discharge medication list. FOLLOWUP APPOINTMENTS: The patient will follow up with primary care physician in 1 week as well as Dr. Irvin as per his recommendations as well as Dr. Woods as well. DISCHARGE PLANNING: Discharge planning was greater than 30 minutes. MTDD
[2017-07-29] MEDS: Levothyroxine Sodium 50 MCG TAB PO SCH (06:14)
[2017-07-29] MEDS: Docusate 100 MG CAP PO SCH (08:39)
[2017-07-29] MEDS: ALPRAZolam 0.25 MG TAB PO SCH (08:39)
[2017-07-29] MEDS: Gabapentin 300 MG CAP PO SCH (08:40)
[2017-07-29] MEDS: Famotidine 20 MG TAB PO SCH (08:40)
[2017-07-29] MEDS: Digoxin 0.25 MG TAB PO SCH (08:40)
[2017-07-29] MEDS ORDERED: Dabigatran 150 mg Capsule PO SCH ×2 (11:30→21:00)
[2017-07-29 13:10] VITALS: BP 118/74; TEMP 97.8
--- NOTE | 2017-08-19 16:41 | EKG ---
Test Reason : PREOP Blood Pressure : / mmHG Vent. Rate : 070 BPM Atrial Rate : 182 BPM P-R Int : 000 ms QRS Dur : 084 ms QT Int : 360 ms P-R-T Axes : 000 -05 055 degrees QTc Int : 388 ms Atrial fibrillation Possible Inferior infarct (cited on or before 30-MAR-1998) Abnormal ECG When compared with ECG of 16-MAY-2015 23:07, Minimal criteria for Anterior infarct are no longer Present Nonspecific T wave abnormality now evident in Anterior leads Confirmed by DR. Nathanael HESS ([id number]) on 08/19/2017 4:41:23 PM Referred By: YUDELKA Confirmed By:DR. Nathanael HESS
== END 2017-07-29 14:06 | DRG 519 ==
LOC: ERS 10:48 → T4-A 16:00
PROVIDERS: ADMIT Internal Medicine; ATTEND Internal Medicine
PROC: 0SB20ZZ Excision of Lumbar Vertebral Disc, Open Approach (ICD-10-PCS; principal; 2017-07-27)
PROC: 01NB0ZZ Release Lumbar Nerve, Open Approach (ICD-10-PCS; 2017-07-27)
DX: M51.16 Intervertebral disc disorders with radiculopathy, lumbar region (principal); E87.1 Hypo-osmolality and hyponatremia; I48.2 Chronic atrial fibrillation; N39.0 Urinary tract infection, site not specified; F32.9 Major depressive disorder, single episode, unspecified; F41.9 Anxiety disorder, unspecified; E03.9 Hypothyroidism, unspecified; I10 Essential (primary) hypertension; M48.061 Spinal stenosis, lumbar region without neurogenic claudication; K59.03 Drug induced constipation; T40.2X5A Adverse effect of other opioids, initial encounter; K21.9 Gastro-esophageal reflux disease without esophagitis
CPT/HCPCS: 36415; 72148; 72197; 76001; 80048; 80053; 81003; 81015; 85025; 93005; 93010; 96374; A4216; G8978-GP-CL; G8979-GP-CJ; G8987-GO-CJ; G8988-GO-CI; J1170; J1885; J2001; J2405; J2704; J3010; S0028

== ENCOUNTER 2017-08-03 15:55 | Emergency (ER) | payer MEDICARE | END 2017-08-03 16:47 | disposition home or self-care (01) | LOC: ERS 15:55 | DX: G89.18 Other acute postprocedural pain (principal); M54.5 Low back pain; J44.9 Chronic obstructive pulmonary disease, unspecified; I48.91 Unspecified atrial fibrillation; E03.9 Hypothyroidism, unspecified; E66.9 Obesity, unspecified; F41.9 Anxiety disorder, unspecified; Z87.891 Personal history of nicotine dependence | CPT/HCPCS: 99283 ==

== ENCOUNTER 2018-08-23 12:46 | Outpatient (CLI) | payer MEDICARE ==
--- NOTE | 2018-08-23 13:34 | RAD ---
RADIOGRAPH CHEST 2 VIEWS: Date: 08/23/2018 Time: 1:06 p.m. HISTORY: An 83-year-old female with dyspnea. COMPARISON: 05/16/2015 FINDINGS: The previously demonstrated cardiomegaly has become worse and is now severe. There is minimal pulmon nannette venous engorgement noted in the left upper lobe, but there is no pulmonary edema. Mild blunting of the bilateral posterior costophrenic angles may represent tiny pleural effusions. No consolidatio n or pneumothorax. IMPRESSION: 1. Severe cardiomegaly without overt congestive heart failure. 2. Tiny bilateral pleural effusions. ANGELIQUE [] POS: ASHELY
== END 2018-08-23 12:47 | disposition home or self-care (01) ==
LOC: RAD 12:46
PROVIDERS: ATTEND Internal Medicine
DX: R06.00 Dyspnea, unspecified (principal); J90 Pleural effusion, not elsewhere classified; I51.7 Cardiomegaly
CPT/HCPCS: 71046

== ENCOUNTER 2018-08-24 23:20 | Inpatient (IN) | payer MEDICARE ==
[2018-08-25] MEDS ORDERED: Acetaminophen 325 MG TAB PO PRN (00:19)
[2018-08-25] MEDS ORDERED: Ondansetron ODT 4 MG TAB PO PRN (00:19)
[2018-08-25] MEDS ORDERED: Ondansetron PF 4 MG/2 ML Vial IVP PRN (00:19)
--- NOTE | 2018-08-25 00:19 | PDOC.FPRHP ---
- History of Present Illness Chief Complaint: SOB History of Present Illness: 83 yo F with hx of Atrial fibrillation, hypothyroidism and HTN presents as direct admit from [place] for acute CHF exacerbation and new diagnosis CHF. Patient states she has been short of breath for months, but has been acutely worse over the last 5 days. She was planning to see Dr. Rizvi Pulmonology in 1 month, but was seen 2 days ago because of her worsening SOB. CXR showed cardiomegaly. She went to [facility] because of worsened SOB yesterday (08/24/18) and was transferred here. Patient states that she has had increased SOB, 2 pillow orthopnea, and paroxysmal nocturnal dyspnea. She also has intermittent, non-radiating, sharp, lower left-sided chest pain for the past week that is worse with inspiration and reproducible. States she fell and wedged herself against a dresser 1 month ago, but didn't start hurting until 1week ago. She also complains of cough, rhinorrhea, chronic constipation 2/2 pain medication use, and nausea concurrent with her occasional vertigo. In [facility], CBC and CMP were wnl. Unknown amount of diuretics given before transfer here. Patient states she has voided "5 gallons." - Allergies/Adverse Reactions Allergies Allergy/AdvReac Type Severity Reaction Status Date / Time morphine Allergy Verified 08/25/18 00:13 prednisone Allergy Verified 08/25/18 00:13 Sulfa (Sulfonamide Allergy Verified 08/25/18 00:13 Antibiotics) - Home Medications Medication Instructions Recorded Confirmed Type ALPRAZolam [Xanax] 0.5 mg PO BID 05/17/15 08/25/18 History Dabigatran [Pradaxa] 150 mg PO BID 05/17/15 08/25/18 History Digoxin [Lanoxin] 0.125 mg PO DAILY 05/17/15 08/25/18 History Esomeprazole Magnesium [NexIUM] 40 mg PO QAM-WM 05/17/15 08/25/18 History Levothyroxine Sodium [Synthroid] 50 mcg PO DAILY 05/17/15 08/25/18 History Polyethylene Glycol 3350 [Miralax] 1 packet PO DAILY PRN 07/23/17 08/25/18 History Escitalopram Oxalate [Lexapro] 10 mg PO HS 08/25/18 08/25/18 History HYDROcodone/Acetaminophen [[place] 1 - 2 tab PO Q8HR PRN 08/25/18 08/25/18 History 10-325 Tablet] Irbesartan 300 mg PO DAILY 08/25/18 08/25/18 History - History PMHx: Afib, HTN, hypothyroid, GERD, vertigo, chronic back pain, anxiety, depression PSHx: Back surgery x5, rt knee replacement, hysterectomy, bladder suspension, rt mastoidectomy, rt foot surgery FHx: non contributory Social: X-smoker (quit 2004, 40 PY); drinks 1-2 glasses wine every evening, denies drug use - Review of Systems General: denies: fever/chills Eyes: denies: eye pain, vision changes ENT: reports: rhinorrhea. denies: nasal congestion Respiratory: reports: cough, shortness of breath Cardiovascular: reports: chest pain (left lower chest pain), paroxysmal nocturnal dyspnea, orthopnea. denies: palpitation, edema Gastrointestinal: reports: nausea (with vertigo), constipation. denies: vomiting, diarrhea Genitourinary: denies: incontinence, dysuria Skin: denies: rashes, lesions Musculoskeletal: reports: arthritis/arthralgias (hands). denies: swelling Neurological: denies: numbness, weakness Psychological: reports: anxiety, depression - Vital signs BP: [138/76] HR: [100] RR: [22] Tmax: [98.1] Pox: [96]% on [2 L BNC] Wt: [] - Physical Exam Constitutional: NAD, awake, alert and oriented HEENT: normocephalic and atraumatic, PERRLA, conjunctiva clear, MMM, oropharynx clear Neck: supple, no LAD Heart: normal S1/S2, no murmurs/rubs/gallops, other (irregularly irregular rhythm, trace pitting edema) Lungs: CTAB, no respiratory distress, good air movement, no rales/rhonchi, no wheezing, no retractions Abdomen: soft, non-tender, bowel sounds present Musculoskeletal: normal structure, normal tone, ROM grossly normal Neurological: no focal deficit Skin: no rash/lesions, good turgor, capillary refill <2 seconds Heme/Lymphatic: no unusual bruising or bleeding, no purpura Psychiatric: normal mood and affect, good judgment and insight, intact recent and remote memory FMR H&P: A/P - Problem List (1) Acute exacerbation of CHF (congestive heart failure) Current Visit: Yes Status: Acute Code(s): I50.9 - HEART FAILURE, UNSPECIFIED (2) Alcohol consumption of more than four drinks per week Current Visit: Yes Status: Chronic Code(s): Z78.9 - OTHER SPECIFIED HEALTH STATUS (3) History of tobacco abuse Current Visit: Yes Status: Chronic Code(s): Z87.891 - PERSONAL HISTORY OF NICOTINE DEPENDENCE (4) GERD (gastroesophageal reflux disease) Current Visit: Yes Status: Chronic Code(s): K21.9 - GASTRO-ESOPHAGEAL REFLUX DISEASE WITHOUT ESOPHAGITIS (5) Anxiety and depression Current Visit: No Status: Chronic Code(s): F41.8 - OTHER SPECIFIED ANXIETY DISORDERS (6) Atrial fibrillation Current Visit: No Status: Chronic Code(s): I48.91 - UNSPECIFIED ATRIAL FIBRILLATION (7) HTN (hypertension) Current Visit: No Status: Chronic Code(s): I10 - ESSENTIAL (PRIMARY) HYPERTENSION Qualifiers: Hypertension type: essential hypertension Qualified Code(s): I10 - Essential (primary) hypertension (8) Hypothyroidism Current Visit: No Status: Chronic Code(s): E03.9 - HYPOTHYROIDISM, UNSPECIFIED - Plan Concern for Acute on chronic CHF exacerbation -Acutely SOB with orthopnea and PND, tachycardic to 100s on presentation -recent CXR shows severe cardiomegaly -CBC, CMP wnl from [facility] ER -Unknown amount of diuretic at outside ER -AM BMP to monitor electrolytes -EKG, Troponin, BNP, TSH, Mag, Phos pending -Echo ordered -Fluid restrict 1500 ml/day -Daily weight -Strict I/Os Atrial fibrillation -digoxin level -Patient on pradaxa, compliant with medication -EKG pending -Pt sees Dr. Taz Varma outpatient Hypothyroid -TSH pending HTN GERD Chronic back pain Anxiety and Depression Hx Tobacco abuse -40 PY, quit 2004 Chronic alcohol use -1-2 glasses wine/day, aware -ASE Dispo: Tele obs, LOS most likely <2 midnights Code status: DNAR PCP: Dr. Champion Diet: CC, fluid restrict 1500 ml/day Ppx: already on pradaxa FMR H&P: [place] - Pertinent history Pam Santacruz is an 83 year old female who was direct admitted from [facility] due to a chief complaint of shortness of breath. Pt complains of worsening dyspnea over the past 2 months. She also reports 2-pillow orthopnea and paroxysmal nocturnal dyspnea. She denies peripheral edema. Pt sees Dr. Taz Varma at [facility] for atrial fibrillation, and that he referred her to Pulmonology due to her shortness of breath. She saw Dr. Rizvi yesterday who performed a chest x-ray and told her that her heart was enlarged. Pt was sent home, but went to [place] ER the following day due to worsening dyspnea. She was found to be tachypniec and was satting at 91% on RA. She was placed on 2L oxygen and given lasix prior to transfer. Her PCP is Dr. Champion. - Pertinent findings Physical Exam: General: pt is alert and oriented x 3; in no apparent distress. Heart: irregularly irregular rhythm; no murmurs, rubs, or gallops. Lungs: clear to auscultation; faint bibasilar wheezes. Abdomen: softly distended; non-tender Extremities: no peripheral edema; - Plan Date/Time: 08/25/18 0019 IPham, have evaluated this patient and agree with findings/plan as outlined by hr internship resident. Pertinent changes/additions are listed here. 1. Probably Acute CHF exacerbation, with new diagnosis of CHF. - will order EKG, BNP, troponin - CXR shows severe cardiomegaly. - Echo. -strict I/Os, fluid restriction, daily weights. -supplemental oxygen prn; wean as tolerated. 2. Atrial fibrillation - rate controlled - on digoxin and pradaxa; will obtain digoxin level. - EKG. 3. Hypothyroidism - resume home meds - check TSH level. 4. Anxiety/Depression - resume home meds 5. Vertigo - resume home meds. 6. Hypertension - BP stable; resume home meds 7. Chronic back pain - resume home meds
[2018-08-25 01:20] LABS: Magnesium 1.6 mg/dL (1.6-2.6); Phosphorus 3.4 mg/dL (2.3-4.7)
[2018-08-25] MEDS ORDERED: Polyethylene Glycol 3350 17 GM Packet PO PRN (01:25)
[2018-08-25 01:32] LABS: Troponin I Less than 0.010 ng/mL (< 0.028)
[2018-08-25] MEDS: Levothyroxine Sodium 50 MCG TAB PO SCH (05:43)
[2018-08-25 05:53] LABS: Anion Gap 15 mmol/L (10-20); BUN (Urea Nitrogen) 7 mg/dL (9.8-20.1); Calc. Creatinine Clearance 81 mL/min (70-130); Carbon Dioxide 28 mmol/L (23-31); Chloride 98 mmol/L (98-107); Estimated GFR-MDRD 84; Glucose 105 mg/dL (83-110); Sodium 137 mmol/L (136-145)
[2018-08-25] MEDS: Digoxin 0.125 MG TAB PO SCH (08:02)
[2018-08-25] MEDS: ALPRAZolam 0.5 MG TAB PO SCH ×2 (08:02→20:35)
[2018-08-25] MEDS: Dabigatran 150 mg Capsule PO SCH ×2 (08:02→20:35)
[2018-08-25] MEDS: HYDROcodone/Acetaminophen 10/325 mg Tablet PO PRN ×2 (08:10→16:08)
--- NOTE | 2018-08-25 09:22 | PDOC.EVN ---
Event Note - Event Note Event Note: Sound notified of admission in error to [facility]. Dr. Champion PCP. Dr. Calixto accepts admit 0900.
--- NOTE | 2018-08-25 13:27 | HP ---
PRIMARY CARE PHYSICIAN: Arsh Champion MD PRIMARY DRIER TRANSFER CAR OPERATOR: Taz Varma MD PRIMARY PLANE RUNNER: Ned Rzivi MD CHIEF COMPLAINT: Shortness of breath. HISTORY OF PRESENT ILLNESS: Ms. Santacruz is a pleasant 83-year-old female with past medical history of atrial fibrillation, hypothyroidism, hypertension, and chronic back pain, presented to [facility] for worsening shortness of breath yesterday. Chest x-ray 2 days ago showed worsening cardiomegaly with tiny pleural effusions. She was treated with IV diuretics at [facility] and was later transferred to [facility]. Upon arriving to [facility], she had complaints of worsening shortness of breath over the past several months, which has been worsening over the last week. She states she saw Dr. Rizvi 2 days ago, who had ordered a chest x-ray and found cardiomegaly. She was later sent home to follow up as outpatient. However, due to worsening shortness of breath, she had taken herself to the [facility] for further evaluation. She was started on 2 L of oxygen via nasal cannula and is now tolerating 1 L with O2 saturations 96%. Her initial lab work showed troponin less than 0.010. TSH 1.5150. BNP of 72.1. Other lab work essentially unremarkable. Echocardiogram ordered, however, pending at this time. She states that she feels better after she was given diuretics at the [facility]. She is continuing on her home medications including digoxin, Pradaxa, Xanax, levothyroxine, and irbesartan. She currently denies any chest pain, palpitations, abdominal pain, nausea, vomiting, headache, blurred vision, or dizziness. However, she states that her shortness of breath is present but improving. She reports about 4 days ago falling between her bed and the wall and while she was helping herself up, she felt pain on her left side of her chest wall. She states this pain comes and goes and states it is worse with movement. However, denies any pain at this time. It is determined that the patient be admitted under observation for further workup and evaluation of her symptoms. REVIEW OF SYSTEMS: All other systems reviewed and found to be negative unless mentioned in the HPI. PAST MEDICAL HISTORY: Atrial fibrillation, currently rate controlled; hypertension; hypothyroidism; chronic back pain; GERD; and anxiety and depression. PAST SURGICAL HISTORY: Back surgery x5, right knee replacement, hysterectomy, bladder suspension, right mastoidectomy, and right foot surgery. FAMILY HISTORY: Noncontributory. SOCIAL HISTORY: Denies any current tobacco use, quit back in 2004. Does report 1 to 2 glasses of wine every evening, but denies any other illicit drug use. ALLERGIES: MORPHINE, PREDNISONE, AND SULFA. HOME MEDICATIONS: 1. Alprazolam 0.5 mg p.o. b.i.d. 2. Dabigatran 150 mg p.o. b.i.d. 3. Digoxin 0.125 mg p.o. daily. 4. Nexium 40 mg p.o. q.a.m. with meals. 5. Levothyroxine sodium 50 mcg p.o. daily. 6. Polyethylene glycol one pack p.o. daily p.r.n. constipation. 7. Lexapro 10 mg p.o. at bedtime. 8. Hydrocodone/acetaminophen 10/325 mg 1 to 2 tabs p.o. q.8 hours as needed for pain. 9. Irbesartan 300 mg p.o. daily. PHYSICAL EXAMINATION: VITAL SIGNS: Blood pressure 174/78, pulse 99, respirations 20, O2 saturations 96% on 1 L via nasal cannula, and temperature 97.9 degrees Fahrenheit. GENERAL: The patient is awake, alert, and oriented x3. No acute distress noted. HEENT: Normocephalic and atraumatic. Pupils are equal, round, and reactive to light. Extraocular muscles intact. Moist mucous membranes noted. Oropharynx is clear without exudates or erythema. Uvula is midline. NECK: Soft, supple, and nontender. No JVD. Trachea midline. HEART: Positive S1 and S2. Atrial fibrillation on the monitor, currently rate controlled. No murmur, rub, or gallop noted. RESPIRATORY: Clear to auscultation bilaterally with good air movement. No wheezes, rales, or rhonchi. ABDOMEN: Soft, nontender. Bowel sounds are present. MUSCULOSKELETAL: Strength 5+ bilaterally in upper and lower extremities. No edema noted. Gait not assessed. NEUROLOGIC: Cranial nerves II through XII intact. No focal deficits noted. Speech normal and intact. SKIN: No rashes or lesions. No ulceration noted. PSYCHIATRIC: Good mood and affect. LABORATORY DATA: WBC 10.8, RBC 4.56, hemoglobin 15.5, and platelets 327. Sodium 137, potassium 4.0, carbon dioxide 28, anion gap 15, BUN 7, creatinine 0.67, estimated GFR 84, glucose 105, magnesium 1.6. Troponin less than 0.010. TSH 1.5150. Digoxin 0.20. DIAGNOSTIC IMAGING: Chest x-ray, 08/23/2018, showed severe cardiomegaly with an overt congestive heart failure, tiny bilateral pleural effusions noted. ASSESSMENT AND PLAN: 1. Acute exacerbation of congestive heart failure. Await echocardiogram. Continue on home regimen. Continue to wean off oxygen as tolerated. Continue with fluid restriction diet. Daily weights and strict I's and O's. Monitor serial troponins. BNP and TSH within normal limits. 2. History of atrial fibrillation, currently rate controlled at this time. Continue on patient's home medications including digoxin, Pradaxa. She is currently under the care of Dr. Taz Varma as outpatient. 3. History of hypothyroidism. TSH is within normal limits. Continue on the patient's home regimen. 4. Hypertension. Continue on the patient's home regimen and add p.r.n. antihypertensives as needed. 5. Gastroesophageal reflux disease. Continue on the patient's home regimen. 6. Chronic back pain. Continue on the patient's home regimen. 7. Anxiety and depression. Continue on the patient's home regimen. 8. Deep venous thrombosis and gastrointestinal prophylaxis with home regimen with PPI and the patient's Pradaxa. 9. Code status: DNR. DISPOSITION: Pending workup and clinical findings. The patient likely discharged home in under 2 midnights. Job ID: [id number]
[2018-08-25] MEDS: HYDROcodone/Acetaminophen 10/325 mg Tablet PO SCH (18:29)
[2018-08-25] MEDS: Escitalopram Oxalate 10 mg Tablet PO SCH (20:35)
[2018-08-25] MEDS: Docusate 100 MG CAP PO PRN (21:09)
[2018-08-26] MEDS: HYDROcodone/Acetaminophen 10/325 mg Tablet PO SCH ×5 (02:14→23:39)
[2018-08-26] MEDS: Levothyroxine Sodium 50 MCG TAB PO SCH (04:46)
[2018-08-26] MEDS: Digoxin 0.125 MG TAB PO SCH (08:36)
[2018-08-26] MEDS: Dabigatran 150 mg Capsule PO SCH ×2 (08:37→20:24)
[2018-08-26] MEDS: ALPRAZolam 0.5 MG TAB PO SCH ×2 (08:37→20:23)
[2018-08-26 09:48] LABS: CRP (Inflammatory) 7.57 mg/dL (= or < 0.5); Uric Acid 4.4 mg/dL (2.6-6.0)
--- NOTE | 2018-08-26 11:11 | CT ---
CTA OF THE CHEST: COMPARISON: None. HISTORY: Long-term shortness of breath that is getting worse since last Tuesday. Elevated D-dimer. TECHNIQUE: Multiple contiguous axial images were obtained in a CTA of the chest with contrast per pulmonary embo lism protocol. Three-D oblique MIP reformats and direct coronal reformats were performed. FINDINGS: The pulmonary arteries are well opacified without filling defects to suggest pulmonary emboli. The g lobal cardiomegaly is seen. There is a moderate pericardial effusion. Calcifications are see in the coronary arteries and aorta. No hilar or mediastinal lymphadenopathy are seen. There are calcified right hilar lymph nodes. A calcified granuloma is seen in the right lung base. Atelectasis is seen in both lung bases. No pn eumothorax or pleural effusion is seen. No focal infiltrates are seen in the lungs. The visualized subdiaphragmatic structures are unremarkable. Degenerative changes are seen in the sp ine. There is wedge compression deformity of the L1 vertebral body which is remote. IMPRESSION: 1. No evidence of pulmonary thromboembolism. 2. Moderate pericardial effusion. POS: ASHELY
--- NOTE | 2018-08-26 12:15 | PDOC.PN ---
- Subjective Encounter Start Date: 08/26/18 Encounter Start Time: 12:13 Patient lying in bed this morning, she became short of breath with ambulation to the bathroom and stable on 2L. She denies chest pain, but reports shortness of breath with exertion. Echo shows preserved EF but moderate pericardial effusion, D-Dimer elevated, but CTA negative for PE. - Objective Resuscitation Status - Order Detail: 08/25/18 00:19 Resuscitation Status Routine Co-Sign Provider: Resuscitation Status: DNAR: NO Resuscitation Discussed with: patient, spouse at bedside MAR Reviewed: Yes Vital Signs & Weight: Vital Signs (12 hours) Temp Pulse Resp BP BP Pulse Ox 08/26/18 11:56 94 L 08/26/18 11:00 97.4 F L 88 20 134/65 96 08/26/18 09:49 96.6 F L 95 20 130/68 95 08/26/18 08:36 90 08/26/18 08:30 98 08/26/18 07:34 98.4 F 90 16 139/86 98 08/26/18 04:45 99.3 F 94 20 171/85 H 97 Weight Weight 173 lb 14.4 oz I&O: 08/25/18 08/26/18 08/27/18 06:59 06:59 06:59 Intake Total 1300 480 Output Total 1100 1500 Balance -1100 -200 480 Result Diagrams: 08/26/18 09:18 08/25/18 04:26 Radiology Reviewed by me: Yes Phys Exam - Physical Examination Constitutional: NAD HEENT: PERRLA, moist MMs, oral pharynx no lesions Neck: no nodes, full ROM Respiratory: no wheezing, clear to auscultation bilateral Afib, irregular irregular Gastrointestinal: soft, non-tender, positive bowel sounds Musculoskeletal: no edema, pulses present Neurological: non-focal, moves all 4 limbs Lymphatic: no nodes Psychiatric: normal affect, A&O x 3 Skin: no rash, cap refill <2 seconds Dx/Plan (1) Pericardial effusion without cardiac tamponade Code(s): I31.3 - PERICARDIAL EFFUSION (NONINFLAMMATORY) Status: Acute (2) GERD (gastroesophageal reflux disease) Code(s): K21.9 - GASTRO-ESOPHAGEAL REFLUX DISEASE WITHOUT ESOPHAGITIS Status: Chronic (3) Atrial fibrillation Code(s): I48.91 - UNSPECIFIED ATRIAL FIBRILLATION Status: Chronic (4) HTN (hypertension) Code(s): I10 - ESSENTIAL (PRIMARY) HYPERTENSION Status: Chronic Qualifiers: Hypertension type: essential hypertension Qualified Code(s): I10 - Essential (primary) hypertension (5) Hypothyroidism Code(s): E03.9 - HYPOTHYROIDISM, UNSPECIFIED Status: Chronic (6) Spinal stenosis Code(s): M48.00 - SPINAL STENOSIS, SITE UNSPECIFIED Status: Chronic - Plan cont current plan of care, plan discussed w/ family * Continue medical management * Uric acid, ESR unremarkable * D-Dimer and CRP elevated, CTA shows no PE * Cardiology and CV surgery consulted * Patient flipped to inpatient for new finding of moderate pericardial effusion and moved to tele
[2018-08-26] MEDS ORDERED: Iopamidol 370 76% 100 ML VIAL ONE (12:41)
[2018-08-26 12:43] LABS: #Eosinphils 0.1 thou/uL (0.0-0.7); #Lymphocytes 0.9 thou/uL (1.20-3.40); #Monocytes 0.6 thou/uL (0.11-0.59); %Basophils 0.4 % (0.0-1.0); %Eosinophils 1.2 % (0.0-10.0); %Lymphocytes 16.2 % (21.0-51.0); %Monocytes 11.2 % (0.0-10.0); Hemoglobin 11.7 g/dL (12.0-16.0); Mean Corpuscular HGB CONC 33.4 g/dL (32.0-36.0); Mean Corpuscular Hemoglobin 33.9 pg (27.0-31.0); Mean Platelet Volume 7.1 fL (7.4-10.4); Platelet Count 361 thou/uL (130-400); Red Blood Cell (RBC) Count 3.46 mill/uL (4.20-5.40); White Blood Cell (WBC) Count 5.7 thou/uL (4.8-10.8)
--- NOTE | 2018-08-26 15:09 | CON ---
DATE OF CONSULTATION: 08/26/2018 REASON FOR CONSULTATION: Evaluate the patient with a small to moderate size pericardial effusion. HISTORY OF PRESENT ILLNESS: Ms. Santacruz is an 83-year-old woman, who is a chronic patient of Dr. Taz Varma. She sees him for atrial fibrillation. She has been managed on Pradaxa at home. She also takes digoxin. She is in and out of atrial fibrillation when she checks her blood pressure at home. She had become short of breath at home for months. She has seen Dr. Rizvi recently, who has set up a sleep study and also pulmonary function testing. She went to the emergency department yesterday and had a chest x-ray, which showed cardiomegaly - we have no previous studies here - and was sent to the hospital. She was diuresed and had a large volume diuresis and feels better than when she went to the emergency department. She did get up last night to go to the bathroom and desaturated, but quickly recovered with reinstitution of nasal cannula oxygen. She has no previous history of congestive heart failure, coronary artery disease, and pulmonary dysfunction. She has had an echocardiogram performed, which shows no valvular abnormalities. Ejection fraction is estimated at 55% to 60%. She has a small to moderate size pericardial effusion with no atrial compression and no reversal of waveforms in the pulmonary veins. PAST MEDICAL HISTORY: 1. Atrial fibrillation. 2. Hypertension. 3. Hypothyroidism. 4. GERD. 5. Chronic back pain. 6. Anxiety. 7. Depression. PAST SURGICAL HISTORY: 1. Back surgery x5. 2. Right knee replacement. 3. Hysterectomy. 4. Bladder suspension. 5. 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 6. Right foot surgery. SOCIAL HISTORY: She quit smoking in 2004. She drinks a couple of glasses of wine every evening. Does not use any other substances. REVIEW OF SYSTEMS: Ten-point review of systems is performed and is negative except as above. PHYSICAL EXAMINATION: GENERAL: This is an elderly woman, resting comfortably on the telemetry unit. VITAL SIGNS: Her height is 5 feet and 6 inches, her weight is 173 pounds, temperature is 98.4, pulse is 90 and irregularly irregular, blood pressure 139/86, and oxygen saturations 98% on 2 L nasal cannula. HEENT: Sclerae are nonicteric. Pupils are equal and round bilaterally. NECK: Supple without adenopathy. She has no carotid bruits. CHEST: Clear bilaterally. HEART: Rhythm is irregularly irregular. There are no murmurs. ABDOMEN: Soft. EXTREMITIES: There is mild edema bilaterally. ASSESSMENT AND PLAN: This is a very pleasant 83-year-old woman, who presented with symptoms consistent with congestive heart failure. Although, her BNP at the time of admission is 72. Troponin was negative. EKG just shows atrial fibrillation. She has been diuresed a significant amount with essentially resolution of her symptomatology. On echocardiogram, she has a moderate-size pericardial effusion with normal ejection fraction and no evidence of early tamponade. My suspicion is that she was fluid overloaded at the time of admission. Diuresis has symptomatically improved her. She may need further diuresis, but I see no indication for pericardial window at this time. Job ID: [id number]
[2018-08-26] MEDS: Escitalopram Oxalate 10 mg Tablet PO SCH (20:24)
[2018-08-26] MEDS: Docusate 100 MG CAP PO PRN (20:24)
[2018-08-26] MEDS ORDERED: Digoxin 0.5 MG/2 ML AMP SLOW IVP SCH (21:00)
--- NOTE | 2018-08-26 21:43 | CON ---
DATE OF CONSULTATION: 08/26/2018 HISTORY OF PRESENT ILLNESS: Pam Santacruz is an 83-year-old white female with chronic atrial fibrillation, who follows with Dr. Taz Varma. Approximately 6 weeks ago, she fell and struck her bedside table along her left lower anterior rib margin. Approximately 3 weeks ago, she then began to have episodes of sharp stabbing pain lasting 5 to 10 seconds, occurring at rest. Over the last few days, she has noted dramatic worsening of her shortness of breath. This has been occurring for the last several months, but over the last several days has been much worse. Recent chest x-ray revealed small pleural effusions. She was treated with IV diuretics at [facility] and she had improvement in her symptoms. She also states at times, she will feel her heart beating very rapidly. She was found to have moderate pericardial effusion and Cardiology consultation is requested. PAST MEDICAL HISTORY: Chronic atrial fibrillation, hypertension, hypothyroidism , GERD, anxiety and depression. OPERATIONS: Back surgery x5, right knee replacement, hysterectomy, bladder suspension, right mastectomy, and right foot surgery. HOME MEDICATIONS: 1. Xanax 0.5 mg b.i.d. 2. Pradaxa 150 b.i.d. 3. Digoxin 0.125 daily. 4. Lexapro 10 mg at bedtime. 5. Nexium 40 daily. 6. [place], irbesartan 300 mg daily. 7. Levothyroxine 50 mcg daily. 8. MiraLAX. ALLERGIES: MORPHINE, PREDNISONE, AND SULFA. SOCIAL HISTORY: She stopped smoking in 2004. She has 1 to 2 glasses of wine every night. REVIEW OF SYSTEMS: A 12-point review of systems is otherwise unremarkable. PHYSICAL EXAMINATION: VITAL SIGNS: Blood pressure 126/60, pulse 90 with frequent heart rates at times to the 140s-150s on telemetry. HEENT: PERRL. NECK: Supple. CHEST: Reveals crackles at the bases. CARDIOVASCULAR: S1 and S2 normal without any S3, S4, or murmurs. ABDOMEN: Normal bowel sounds without tenderness or organomegaly. EXTREMITIES: Revealed no clubbing, cyanosis, or edema. NEUROLOGIC: Grossly intact. SKIN: Warm and dry. LABORATORY DATA: EKG reveals atrial fibrillation with poor R-wave progression. Chest CTA revealed moderate pericardial effusion. There is no evidence of pulmonary embolism. Calcifications were seen in the coronary arteries. Echocardiogram revealed moderate pericardial effusion without evidence of tamponade. Ejection fraction was 55% to 60%, moderate left atrial enlargement, moderate right atrial enlargement, mild mitral regurgitation, and mild tricuspid regurgitation. Sodium 137, potassium 4.0, chloride 98, carbon dioxide 28, BUN 7, creatinine 0.67. Troponin I is normal. TSH is normal. Digoxin 0.20. Hemoglobin 11.7, hematocrit 35.1, white count 5700, and platelets 361,000. IMPRESSION: 1. Moderate pericardial effusion without evidence of tamponade. This probably is due to generalized volume overload. With being chronically anticoagulated and a fall with striking her lower rib margin on the left side, we will need to keep in mind that this may be a possible hemopericardium. However, with diuresis, her symptoms should worsen, which they did not. 2. Chronic atrial fibrillation. At times here, her rate is not well controlled with rates in the 140s to 150s. 3. Three weeks of orthopnea. 4. Hypertension. 5. Hypercholesterolemia. 6. Coronary artery calcifications seen on chest CT. 7. Gastroesophageal reflux disease. 8. Chronic back pain. 9. Anxiety and depression. PLAN: Ms. Santacruz's heart rate does not appear to be controlled at times. Also , her digoxin level is 0.2 mg. She will be given digoxin 0.5 mg IV and another digoxin level will be obtained in the morning. Also, I feel she should be on chronic Lasix for what appears to be diastolic heart failure. After diuresis, echocardiogram can be repeated in 1 to 2 weeks to see if her effusion is smaller. She also currently has chest wall pain and tenderness from a fall 6 weeks ago into her bedside table. Job ID: [id number] [facility]
--- NOTE | 2018-08-26 21:59 | PDOC.EVN ---
Event Note - Event Note Event Note: Discussed the case with Josep Jasso. Mandyrohan'd patient. 30 minute discussion with patient and her family. Explained the moderate pericardial effusion. Does not appear to be causing tamponade. Re-explained the reason for not performing the pericardial window. She is feeling better with the diuresis and I suspect she has diastolic dysfunction with preserved EF. She will need to be on diuretics regularly. She has been able to ambulate without oxygen. Discussed the need for daily weights to manage the diastolic dysfunction. All questions were answered.
[2018-08-27 05:57] LABS: Anion Gap 13 mmol/L (10-20); BUN (Urea Nitrogen) 8 mg/dL (9.8-20.1); Calc. Creatinine Clearance 87 mL/min (70-130); Calcium 9.3 mg/dL (7.8-10.44); Carbon Dioxide 28 mmol/L (23-31); Chloride 98 mmol/L (98-107); Estimated GFR-MDRD Greater than 90; Glucose 97 mg/dL (83-110); Potassium 4.1 mmol/L (3.5-5.1); Sodium 135 mmol/L (136-145)
[2018-08-27 06:00] LABS: Digoxin 1.62 ng/mL (0.8-2.0)
[2018-08-27] MEDS: HYDROcodone/Acetaminophen 10/325 mg Tablet PO SCH ×4 (06:09→23:26)
[2018-08-27] MEDS: Levothyroxine Sodium 50 MCG TAB PO SCH (06:09)
[2018-08-27] MEDS: Furosemide 40 MG TAB PO SCH (08:00)
[2018-08-27] MEDS: Dabigatran 150 mg Capsule PO SCH ×2 (08:01→20:22)
[2018-08-27] MEDS: ALPRAZolam 0.5 MG TAB PO SCH ×2 (08:01→20:22)
[2018-08-27] MEDS: Digoxin 0.25 MG TAB PO SCH (08:01)
--- NOTE | 2018-08-27 15:49 | PDOC.PN ---
- Subjective Encounter Start Date: 08/27/18 Encounter Start Time: 15:47 Patient lying in bed, she reports subjective shortness of breath after ambulation, however home O2 evaluation was done and found O2 stable at 93%. She denies chest pain. Further discussion was made with family and patient to continue on Furosemide 40mg daily. Discussed with Dr Cordova who recommended Digoxin 0.25mg Tuesday, Tuesday and Tuesday, but her normal home dose of 0.125mg every other day. - Objective Resuscitation Status - Order Detail: 08/25/18 00:19 Resuscitation Status Routine Co-Sign Provider: Resuscitation Status: DNAR: NO Resuscitation Discussed with: patient, spouse at bedside MAR Reviewed: Yes Vital Signs & Weight: Vital Signs (12 hours) Temp Pulse Resp BP Pulse Ox 08/27/18 11:35 97.9 F 86 17 152/65 H 93 L 08/27/18 07:10 97.9 F 78 16 131/72 94 L 08/27/18 04:10 97.8 F 72 16 136/65 99 Weight Weight 170 lb 1.6 oz I&O: 08/26/18 08/27/18 08/28/18 06:59 06:59 06:59 Intake Total 1300 1690 Output Total 1500 1350 Balance -200 340 Result Diagrams: 08/26/18 09:18 08/27/18 04:52 Radiology Reviewed by me: Yes Phys Exam - Physical Examination Constitutional: NAD HEENT: PERRLA, moist MMs, oral pharynx no lesions Neck: no nodes, full ROM Respiratory: no wheezing Mild crackle at bases Cardiovascular: RRR, no significant murmur Gastrointestinal: soft, non-tender, positive bowel sounds Musculoskeletal: no edema, pulses present Neurological: non-focal, moves all 4 limbs Lymphatic: no nodes Psychiatric: normal affect, A&O x 3 Skin: no rash, cap refill <2 seconds Dx/Plan (1) Pericardial effusion without cardiac tamponade Code(s): I31.3 - PERICARDIAL EFFUSION (NONINFLAMMATORY) Status: Acute (2) GERD (gastroesophageal reflux disease) Code(s): K21.9 - GASTRO-ESOPHAGEAL REFLUX DISEASE WITHOUT ESOPHAGITIS Status: Chronic (3) Atrial fibrillation Code(s): I48.91 - UNSPECIFIED ATRIAL FIBRILLATION Status: Chronic (4) HTN (hypertension) Code(s): I10 - ESSENTIAL (PRIMARY) HYPERTENSION Status: Chronic Qualifiers: Hypertension type: essential hypertension Qualified Code(s): I10 - Essential (primary) hypertension (5) Hypothyroidism Code(s): E03.9 - HYPOTHYROIDISM, UNSPECIFIED Status: Chronic (6) Spinal stenosis Code(s): M48.00 - SPINAL STENOSIS, SITE UNSPECIFIED Status: Chronic - Plan cont current plan of care, plan discussed w/ family * Discussed with family and patient. Medically stable for discharge, however she is concerned because of her subjective shortness of breath * She will continue on lasix 40mg daily, follow with Dr Varma for repeat echo in 2 weeks. Patient instructed to call for an appointment * Dr Cordova recommending Digoxin 0.250mg Tuesday, Tuesday and Fridays with normal 0.125mg every other day. * Continue other home medications * She is deciding whether she will want HH upon discharge. * Monitor vitals and symptoms tonight\ * Discharge med rec was completed and prescription of lasix sent, patient reports having enough Digoxin at home and will not require script upon discharge * Likely discharge home in the am
[2018-08-27] MEDS: Escitalopram Oxalate 10 mg Tablet PO SCH (20:22)
[2018-08-28] MEDS: HYDROcodone/Acetaminophen 10/325 mg Tablet PO SCH ×2 (05:30→11:51)
[2018-08-28] MEDS: Levothyroxine Sodium 50 MCG TAB PO SCH (05:30)
[2018-08-28] MEDS: Digoxin 0.25 MG TAB PO SCH (08:19)
[2018-08-28] MEDS: ALPRAZolam 0.5 MG TAB PO SCH (08:19)
[2018-08-28] MEDS: Dabigatran 150 mg Capsule PO SCH (08:19)
[2018-08-28] MEDS: Furosemide 40 MG TAB PO SCH (08:20)
--- NOTE | 2018-08-28 08:59 | PDOC.PN ---
- Subjective Encounter Start Date: 08/28/18 Encounter Start Time: 10:30 Subjective: Patient able to go all night without oxygen. Still gets some -: panic symptoms when she feels short of breath, even when -: oxygen ok. - Objective Resuscitation Status - Order Detail: 08/25/18 00:19 Resuscitation Status Routine Co-Sign Provider: Resuscitation Status: DNAR: NO Resuscitation Discussed with: patient, spouse at bedside MAR Reviewed: Yes Vital Signs & Weight: Vital Signs (12 hours) Temp Pulse Resp BP Pulse Ox 08/28/18 07:35 98.2 F 87 17 137/67 92 L 08/28/18 03:25 98.1 F 74 16 136/72 94 L Weight Weight 170 lb 3.2 oz I&O: 08/27/18 08/28/18 08/29/18 06:59 06:59 06:59 Intake Total 1690 960 Output Total 1350 1900 Balance 340 -940 Result Diagrams: 08/26/18 09:18 08/27/18 04:52 Phys Exam - Physical Examination Constitutional: NAD HEENT: moist MMs Respiratory: no wheezing, no rales, no rhonchi Cardiovascular: RRR, no significant murmur Gastrointestinal: soft, positive bowel sounds Musculoskeletal: no edema Neurological: non-focal, moves all 4 limbs Psychiatric: normal affect, A&O x 3 Dx/Plan (1) Pericardial effusion without cardiac tamponade Code(s): I31.3 - PERICARDIAL EFFUSION (NONINFLAMMATORY) Status: Acute (2) Acute exacerbation of CHF (congestive heart failure) Code(s): I50.9 - HEART FAILURE, UNSPECIFIED Status: Acute Qualifiers: Heart failure type: diastolic Qualified Code(s): I50.33 - Acute on chronic diastolic (congestive) heart failure Comment: EF 55-60% (3) GERD (gastroesophageal reflux disease) Code(s): K21.9 - GASTRO-ESOPHAGEAL REFLUX DISEASE WITHOUT ESOPHAGITIS Status: Chronic (4) Atrial fibrillation Code(s): I48.91 - UNSPECIFIED ATRIAL FIBRILLATION Status: Chronic Comment: Increased Digoxin, extra dose M, W, F (5) HTN (hypertension) Code(s): I10 - ESSENTIAL (PRIMARY) HYPERTENSION Status: Chronic Qualifiers: Hypertension type: essential hypertension Qualified Code(s): I10 - Essential (primary) hypertension (6) Anxiety Code(s): F41.9 - ANXIETY DISORDER, UNSPECIFIED Status: Chronic Comment: occ with panic attacks - Plan cont current plan of fpc today * . - Discharge Day Encounter end time: 11:00
[2018-08-28 11:59] VITALS: BP 129/72; TEMP 97.4
--- NOTE | 2018-08-28 14:44 | DIS ---
DATE OF ADMISSION: 08/26/2018 DATE OF DISCHARGE: 08/28/2018 PRIMARY CARE PHYSICIAN: Arsh Champion MD REASON FOR ADMISSION: Shortness of breath. DIAGNOSES AT DISCHARGE: 1. Acute exacerbation of acute on chronic diastolic congestive heart failure. 2. Pericardial effusion without tamponade. 3. Gastroesophageal reflux disease. 4. Atrial fibrillation. 5. Hypertension. 6. Anxiety. PROCEDURES: 1. Echocardiogram showing ejection fraction of 55% to 60% and a moderate pericardial effusion. 2. CT angio of the chest and thorax showing no evidence for pulmonary thromboembolism, but moderate pericardial effusion. CONSULTATIONS: 1. Cardiology, Dr. Cordova. 2. CT Surgery, Dr. Grant. SUMMARY OF HOSPITAL COURSE: This is an 83-year-old white female with a known history of atrial fibrillation, who presented to an outside emergency room with shortness of breath. She was found to be in acute CHF exacerbation, was given diuretics and transferred to our hospital. Here, she had an echocardiogram and CT angio as above. She was diuresed with good improvement in her shortness of breath. She was recently able to be weaned off oxygen. She was noted to have a moderate-sized pericardial effusion. Dr. Grant was consulted. He determined that this was due to her fluid overload and was not showing any evidence of tamponade and did not need a cardiac window at this point. Dr. Cordova was consulted for Cardiology and made medication adjustments for the patient's atrial fibrillation, did have an uncontrolled rate and digoxin level was low, so she was given extra dose of digoxin and switched to a double dose Mondays, Wednesdays and Fridays. The patient is doing well the day of discharge. She did continue to have some episodes of panic sort of symptoms when she got short of breath at night, but was not having any drops in her oxygen, so home oxygen was not arranged. She did well off oxygen overnight the day before discharge and so is being discharged home. DISCHARGE MANAGEMENT: Discharged home with Home Health. ACTIVITY: As tolerated. DIET: Fluid restricted healthy heart low-sodium diet. FOLLOW UP: With Dr. Rizvi in [address] Champion on the and Dr. 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 DISCHARGE MEDICATIONS: 1. Furosemide 40 mg daily, 30 tablets dispensed. 2. Digoxin 0.125 mg on Tuesdays, , and Saturdays and Sundays and 0.25 mg on Mondays, Wednesdays, and Fridays. 3. Alprazolam 0.5 mg twice a day. 4. Pradaxa 150 mg twice a day. 5. Lexapro 10 mg at night. 6. Nexium 40 mg daily. 7. Cucumber 10/325 as needed. 8. Irbesartan 300 mg daily. 9. Synthroid 50 mcg daily. 10. MiraLAX 1 packet as needed for constipation. Arranging the details of this discharge took 32 minutes. Job ID: [id number]
--- NOTE | 2018-08-30 12:42 | EKG ---
Test Reason : STAT Blood Pressure : / mmHG Vent. Rate : 096 BPM Atrial Rate : 089 BPM P-R Int : 000 ms QRS Dur : 084 ms QT Int : 334 ms P-R-T Axes : 000 003 076 degrees QTc Int : 421 ms Atrial fibrillation Anterior infarct , age undetermined Abnormal ECG When compared with ECG of 27-JUL-2017 10:31, Borderline criteria for Inferior infarct are no longer Present Confirmed by DR. Nathanael HESS ([id number]) on 08/30/2018 12:41:37 PM Referred By: HERMAN anderson Confirmed By:DR. Nathanael HESS
--- NOTE | 2018-08-30 12:46 | EKG ---
Test Reason : Blood Pressure : / mmHG Vent. Rate : 097 BPM Atrial Rate : 096 BPM P-R Int : 000 ms QRS Dur : 078 ms QT Int : 332 ms P-R-T Axes : 000 -05 031 degrees QTc Int : 421 ms Atrial fibrillation Low voltage QRS Cannot rule out Inferior infarct , age undetermined Abnormal ECG When compared with ECG of 25-AUG-2018 01:03, (Unconfirmed) Atrial fibrillation has replaced Junctional rhythm Nonspecific T wave abnormality now evident in Inferior leads Nonspecific T wave abnormality, improved in Lateral leads Confirmed by DR. Nathanael HESS ([id number]) on 08/30/2018 12:45:39 PM Referred By: TIN Confirmed By:DR. Nathanael HESS
== END 2018-08-28 12:54 | disposition home health service (06) | DRG 292 ==
LOC: 2SW 23:40 → OBSVTOIN 08-26 07:34 → 2NO 08-26 09:56
PROVIDERS: ADMIT Student in an Organized Health Care Education/Training Program; ATTEND Internal Medicine
DX: I11.0 Hypertensive heart disease with heart failure (principal); I31.3 Pericardial effusion (noninflammatory); I48.91 Unspecified atrial fibrillation; E03.9 Hypothyroidism, unspecified; K21.9 Gastro-esophageal reflux disease without esophagitis; Z66 Do not resuscitate; G89.29 Other chronic pain; M54.9 Dorsalgia, unspecified; I50.33 Acute on chronic diastolic (congestive) heart failure; M48.00 Spinal stenosis, site unspecified; E78.00 Pure hypercholesterolemia, unspecified; I25.10 Atherosclerotic heart disease of native coronary artery without angina pectoris; F41.9 Anxiety disorder, unspecified; Z96.651 Presence of right artificial knee joint; Z88.2 Allergy status to sulfonamides; Z88.5 Allergy status to narcotic agent; Z88.8 Allergy status to other drugs, medicaments and biological substances; Z90.710 Acquired absence of both cervix and uterus; Z98.890 Other specified postprocedural states; Z87.891 Personal history of nicotine dependence
CPT/HCPCS: 36415; 71046; 71275; 80048; 80162; 83735; 83880; 84100; 84443; 84484; 84550; 85025; 85379; 85652; 86140; 93005; 93010; 93306; J1160; Q9967

== ENCOUNTER 2018-09-05 08:43 | Outpatient (CLI) | payer MEDICARE ==
--- NOTE | 2018-09-08 13:14 | PFT ---
PATIENT HISTORY: HEIGHT: 67 WEIGHT:185 SMOKER: NO HOW LON PACKS PER DAY 1 PRODUCTIVE COUGH: LUNG DISEASE: PHYSICIAN INTERPRETATION FINAL REPORT: Patient had good effort and cooperation. PFT data: FVC 1.66 (56%), FEV1 1.06 (48%) FEV1/FVC 0.64 RV 1.62 (68%), TLC 3.37 (63%). Diffusion 22.27 (96%) There is a reduction the both the FEV1 and the FVC. The ratio is slightly reduced, suggestive of an obstructive air flow limitation. That being said RV and TLC are also reduced. There is no improvement following administration of a bronchodilator. Diffusion capacity is perfectly normal. IMPRESSION: Overall, These pulmonary function studies are most consistent with a mixed obstructive and restrictive process with no significant reversibility, and normal gas exchange. Clinical and radiographic correlation to be considered for both obstructive and restrictive/ chest wall process. Compared to July 2008, there has been a significant reduction to the FVC and the FEV1. At that time she did have significant reversibility on spirometry. [employer]: IVET Book Agent: IVET CANCINO
== END 2018-09-05 08:44 | disposition home or self-care (01) ==
LOC: CP 08:43
PROVIDERS: ATTEND Internal Medicine
DX: R06.09 Other forms of dyspnea (principal); G47.33 Obstructive sleep apnea (adult) (pediatric)
CPT/HCPCS: 94060; 94727; 94729

== ENCOUNTER 2018-09-14 20:30 | Outpatient (CLI) | payer MEDICARE | END 2018-09-14 20:31 | disposition home or self-care (01) | LOC: SLEEPLAB 20:30 | PROVIDERS: ATTEND Internal Medicine | DX: G47.33 Obstructive sleep apnea (adult) (pediatric) (principal); R53.83 Other fatigue; R51 Headache; R09.89 Other specified symptoms and signs involving the circulatory and respiratory systems; K21.9 Gastro-esophageal reflux disease without esophagitis; R06.83 Snoring; G47.00 Insomnia, unspecified; R35.1 Nocturia; I10 Essential (primary) hypertension; G47.10 Hypersomnia, unspecified; E66.9 Obesity, unspecified; Z68.28 Body mass index [BMI] 28.0-28.9, adult | CPT/HCPCS: 95811 ==

== ENCOUNTER 2018-11-03 09:14 | Emergency (ER) | payer MEDICARE ==
--- NOTE | 2018-11-03 09:56 | RAD ---
XR Knee Rt 2 View: 11/03/2018 9:23 AM CLINICAL INDICATION: Injury with pain COMPARISON: 05/26/2009 FINDINGS: Fracture:No fracture. Arthropathy:Right knee prosthesis is in place without hardware complication Incidental findings:Postoperative lucency of patella IMPRESSION: 1. No acute osseous abnormality.
--- NOTE | 2018-11-03 09:57 | RAD ---
XR Hip Lt 2-3 View: 11/03/2018 9:23 AM CLINICAL INDICATION: Pain COMPARISON: None. FINDINGS: Fracture:No fracture. Arthropathy:Moderate arthropathy. Incidental findings:Hardware of the partially imaged pelvis IMPRESSION: 1. No acute osseous abnormality.
[2018-11-03 10:00] LABS: #Eosinphils 0.1 thou/uL (0.0-0.7); #Lymphocytes 1.4 thou/uL (1.20-3.40); #Monocytes 0.5 thou/uL (0.11-0.59); #Neutrophils 4.1 thou/uL (1.40-6.50); %Basophils 0.4 % (0.0-1.0); %Eosinophils 1.7 % (0.0-10.0); %Lymphocytes 22.7 % (21.0-51.0); %Monocytes 8.7 % (0.0-10.0); %Neutrophils 66.5 % (42.0-75.0); Hemoglobin 13.7 g/dL (12.0-16.0); Mean Corpuscular Volume 97.2 fL (78.0-98.0); Mean Platelet Volume 7.4 fL (7.4-10.4); Platelet Count 254 thou/uL (130-400); RBC Distribution Width 12.7 % (11.5-14.5); Red Blood Cell (RBC) Count 4.14 mill/uL (4.20-5.40); White Blood Cell (WBC) Count 6.2 thou/uL (4.8-10.8)
--- NOTE | 2018-11-03 10:03 | RAD ---
LEFT ELBOW 2 VIEWS: Date: 11/03/18 HISTORY: Trauma with fall. FINDINGS: There is an obliquely oriented more supracondylar fracture. Fracture line also may extend slightly in to the intercondylar region. The bones are demineralized. The humeral shaft is displaced to the radia l side of the elbow. IMPRESSION: Obliquely oriented distal humeral shaft fracture with fracture line which may also extend slightly in to the inter/supracondylar region. POS: [facility]
--- NOTE | 2018-11-03 10:04 | RAD ---
LEFT HUMERUS 2 VIEWS: Date: 11/03/18 HISTORY: Fall. FINDINGS: There is a supracondylar fracture of the distal humerus. The fracture is an obliquely oriented fractu re through the distal humeral shaft. A portion of the fracture may extend into the intercondylar valentine on. Fracture shows the humeral shaft to be anteriorly displaced on this view. IMPRESSION: Supracondylar humeral fracture. POS: [facility]
[2018-11-03 10:17] LABS: INR-International Normal Ratio 1.3; PTT 46.2 SEC (22.9-36.1); Prothrombin Time 16.2 SEC (12.0-14.7)
[2018-11-03 10:20] LABS: Anion Gap 13 mmol/L (10-20); BUN (Urea Nitrogen) 11 mg/dL (9.8-20.1); Calc. Creatinine Clearance 0 mL/min (70-130); Calcium 9.7 mg/dL (7.8-10.44); Carbon Dioxide 29 mmol/L (23-31); Chloride 97 mmol/L (98-107); Estimated GFR-MDRD 75; Glucose 119 mg/dL (83-110); Sodium 135 mmol/L (136-145)
--- NOTE | 2018-11-03 10:22 | CT ---
EXAM: Brain CT scan Without contrast: HISTORY: Fall on anticoagulants COMPARISON: 05/17/2015 FINDINGS: Atrophy and chronic white matter ischemic change. No focal mass or midline shift. No intra or extra-axial hemorrhage. Status post right mastoidectomy. Minimal ethmoid sinus mucosal disease. IMPRESSION: No mass or bleed or other significant acute intracranial process.
[2018-11-03] MEDS ORDERED: Fentanyl 100 MCG/2 ML VIAL ONE ×2 (10:23→10:56)
[2018-11-03] MEDS ORDERED: Ketorolac Tromethamine 30 MG/ML VIAL ONE (11:45)
--- NOTE | 2018-11-03 11:49 | RAD ---
EXAM: XR Elbow Lt 2 View PROVIDED CLINICAL HISTORY: Post reduction left humeral fracture. COMPARISON: 11/03/2018 at 0932 hours. FINDINGS: Splint material is now seen overlying the posterior aspect of the elbow. Previously noted obliquely o riented, angulated, displaced fracture of the distal left humeral metadiaphysis is again seen. Only lateral and slight oblique projections are provided. The distal fracture fragment is displaced dorsal ly on the slightly oblique lateral projection measuring 2.2 cm; although, the degree of displacement on the more true lateral projection is less apparent. There is overriding of the fractur e fragments which does persist. IMPRESSION: Obliquely oriented distal humeral shaft fracture involving the metadiaphysis; the fracture may also e xtend into the intercondylar/supracondylar region. Displacement of fracture fragments is present with mild overriding of fracture fragments.
== END 2018-11-03 12:10 | disposition home or self-care (01) ==
LOC: ERS 09:14
DX: S42.412A Displaced simple supracondylar fracture without intercondylar fracture of left humerus, initial encounter for closed fracture (principal); S80.211A Abrasion, right knee, initial encounter; J44.9 Chronic obstructive pulmonary disease, unspecified; I48.91 Unspecified atrial fibrillation; E03.9 Hypothyroidism, unspecified; Z87.891 Personal history of nicotine dependence; Z79.899 Other long term (current) drug therapy; W18.30XA Fall on same level, unspecified, initial encounter
CPT/HCPCS: 24505; 36415; 70450; 80048; 85025; 85610; 85730; 93005; 96374; 96375; 96376; J1885; J3010

== ENCOUNTER 2018-11-07 05:47 | Inpatient (IN) | payer MEDICARE ==
[2018-11-07] MEDS ORDERED: Fentanyl 100 MCG/2 ML VIAL ONE ×3 (06:14→11:17)
[2018-11-07] MEDS ORDERED: Midazolam HCl 2 mg/2 ml Vial ONE (06:32)
[2018-11-07] MEDS ORDERED: Lidocaine 1% (PF) 30 ML VIAL ONE (06:32)
[2018-11-07] MEDS ORDERED: Promethazine HCl 25 MG/ML VIAL IM PRN ×2 (07:28→10:51)
[2018-11-07] MEDS ORDERED: traMADol HCl 50 MG TAB PO PRN (07:28)
[2018-11-07] MEDS ORDERED: Ropivacaine 0.2% 550 ML 550 ML NERVE BLCK SCH (07:28)
[2018-11-07] MEDS ORDERED: Ondansetron PF 4 MG/2 ML Vial IVP PRN (07:28)
--- NOTE | 2018-11-07 10:11 | RAD ---
LEFT ELBOW 2 VIEWS: HISTORY: ORIF. COMPARISON: Radiographs 11/03/2018. FINDINGS: Satisfactory appearance of the medial and lateral plate and screw fixation of the comminuted intraart icular distal humerus fracture. IMPRESSION: Satisfactory postoperative appearance of complete articular multifragmentary articular fracture of di stal humerus. POS: [facility]
[2018-11-07] MEDS ORDERED: Promethazine HCl 25 MG/ML VIAL SLOW IVP PRN (10:51)
[2018-11-07] MEDS ORDERED: Ondansetron HCl/PF 4 MG/2 ML Vial IVP PRN (10:51)
[2018-11-07] MEDS ORDERED: Bisacodyl 10 MG SUPP PR PRN (11:01)
[2018-11-07] MEDS ORDERED: Milk Of Magnesia 30 ML UDCUP PO PRN (11:01)
[2018-11-07] MEDS ORDERED: Communication Order-Pharmacy FS SCH (11:01)
[2018-11-07] MEDS ORDERED: Ketorolac Tromethamine 30 MG/ML VIAL ONE (11:21)
[2018-11-07] MEDS ORDERED: Ropivacaine 0.5% HCl/PF (150 MG/30 ML VIAL) ONE ×2 (11:41→13:29)
[2018-11-07] MEDS ORDERED: Ropivacaine 0.2% HCl/PF (40 MG/20 ML VIAL) ONE (13:29)
[2018-11-07] MEDS ORDERED: Rocuronium Bromide 10 MG/ML (10ML VIAL) ONE (13:48)
[2018-11-07] MEDS ORDERED: PROPOFOL 200 MG/20 ML VIAL ONE (13:48)
[2018-11-07] MEDS ORDERED: Ondansetron PF 4 MG/2 ML Vial ONE (13:48)
[2018-11-07] MEDS ORDERED: Lidocaine 1% PF 5 ML VIAL ONE (13:48)
[2018-11-07] MEDS: CEFAZOLIN 2 GM in Premix Bag 1 BAG IVPB SCH ×2 (15:45→21:41)
[2018-11-07] MEDS ORDERED: hydrALAZINE 10 MG TAB PO PRN (18:33)
[2018-11-07] MEDS ORDERED: Polyethylene Glycol 3350 17 GM Packet PO PRN (18:34)
[2018-11-07 19:52] VITALS: BMI 30.3
[2018-11-07] MEDS: ALPRAZolam 0.5 MG TAB PO SCH (20:14)
[2018-11-07] MEDS: HYDROcodone/Acetaminophen 10/325 mg Tablet PO PRN (20:17)
[2018-11-07] MEDS: Ketorolac Tromethamine 15 MG/ML VIAL IVP SCH (22:05)
[2018-11-08] MEDS: HYDROcodone/Acetaminophen 10/325 mg Tablet PO PRN ×6 (01:19→23:15)
[2018-11-08] MEDS: Fentanyl 100 MCG/2 ML VIAL SLOW IVP PRN ×3 (04:21→10:30)
[2018-11-08] MEDS: Levothyroxine Sodium 50 MCG TAB PO SCH (05:37)
[2018-11-08] MEDS: traMADol HCl 50 MG TAB PO PRN ×3 (05:37→20:15)
[2018-11-08] MEDS: Furosemide 40 MG TAB PO SCH (06:39)
[2018-11-08] MEDS: ALPRAZolam 0.5 MG TAB PO SCH ×2 (08:09→20:15)
[2018-11-08] MEDS: DULoxetine 60 MG CAP PO SCH (08:09)
[2018-11-08] MEDS: Digoxin 0.25 MG TAB PO SCH (08:10)
[2018-11-08] MEDS: Dabigatran 150 mg Capsule PO SCH ×2 (10:07→20:15)
[2018-11-08] MEDS: Ketorolac Tromethamine 15 MG/ML VIAL IVP SCH (10:58)
--- NOTE | 2018-11-08 11:46 | OP ---
DATE OF PROCEDURE: 11/07/2018 PREOPERATIVE DIAGNOSIS: Left extra-articular supracondylar humerus fracture. POSTOPERATIVE DIAGNOSIS: Left extra-articular supracondylar humerus fracture. PROCEDURE PERFORMED: Open reduction and internal fixation with medial and lateral plating of extra-articular supracondylar fracture. AUTOMOTIVE PARTS CLERK: Mat Carlton PA-C ANESTHESIA: Giovany Rea. The patient received general endotracheal intubation with supraclavicular block. ESTIMATED BLOOD LOSS: 75 mL. TOURNIQUET TIME: 120 minutes at 250 mmHg. ANTIBIOTICS: Ancef 2 g. IMPLANTS: Synthes 2.7 x 3.5 medial distal plate and a 2.7 x 3.5 lateral distal humeral plate with six 3.5 cortical screws, two 2.0 cortical screws, two 2.7 nonlocking screws, and four 2.7 locking screws. COMPLICATIONS: None. HISTORY OF PRESENT ILLNESS: Ms. Santacruz is a pleasant 83-year-old female, status post fall, sustaining a supracondylar humerus fracture. The patient takes blood thinners for AFib. I discussed with the patient the risks and benefits of an open reduction and internal fixation of left supracondylar humerus fracture. I discussed that itwould be near the radial nerve as well as the ulnar nerve and the risks of potentially stretch injuries from these. I discussed the surgery, she would require plates for fixation that should have some stiffness, decreased range of motion and strength, need for further surgeries, nonunion and malunion, and loss of life or limb. The patient understood the risks and benefits of the procedure and elected to proceed. DESCRIPTION OF PROCEDURE: Time-out was performed designating the patient's left upper extremity as the operative site, based on site, consents, and marking. After time-out, the tourniquet was brought up and left for 120 minutes. We did a posterior midline incision. We found the patient's ulnar nerve on the medial aspect, came down laterally down through skin to fat to the triceps. We created soft tissues planes, dissected down and after finding the patient's ulnar nerve, we then started laterally coming straight down on the lateral epicondyle down to the bone. We then bluntly dissected, found the sharp edge of the fracture plane both medially and laterally, worked on the triceps to expose doing a tricipital approach. After completion of this and after we exposed both ends of the fracture and reduced it with a Lion jaw clamp, we used two 2-0 screws for lag technique to help to hold the bone into place for placement of our plates. At the completion of this, we placed a medial plate with a 3.5 screw in the shaft, two set of nonlocking screw into the distal segment. We then placed our lateral plate. Given this, I placed a little bit longer plate just so we would have a fulcrum or an endpoint, I could probably have taken 2 holes shorter, but I liked the overall position of our longer plate. We slid it and ensured that we were underneath the nerve, which was the radial nerve, which we saw at the superior edge of our plate, which was incised bluntly and slid underneath. We then placed a screw into the shaft and then a screw distally. We took AP and lateral radiographs to ensure we liked our plate position. We then placed two 2.7 locking screws distally crossing each other and down extra-articular. We then placed two more 3.5 screws on each side, medial and lateral proximally for fixation. We then under flouro did AP and lateral views, and felt we had overall good alignment and good fixation of the plate. We then washed. We closed, left ulnar nerve in its groove, we put a little bit of soft tissue over the plate, so it did not get caught or irritated, closed subcu with one 2-0 and 3-0 nylon. The patient will be placed in a long-arm splint. She will remain on that for 2 weeks, will come out. At which time, for wound concern, should begin range of motion. I will see her in 10 to 14 days. She will be admitted for pain medications as well as for 24 hours antibiotics. The patient's outlook is guarded given her age. Job ID: [id number] [facility]
[2018-11-08] MEDS ORDERED: Dabigatran 150 mg Capsule PO SCH (21:00)
[2018-11-09] MEDS: Levothyroxine Sodium 50 MCG TAB PO SCH (05:46)
[2018-11-09] MEDS: HYDROcodone/Acetaminophen 10/325 mg Tablet PO PRN ×3 (05:46→20:44)
[2018-11-09] MEDS: Furosemide 40 MG TAB PO SCH (06:32)
[2018-11-09] MEDS: ALPRAZolam 0.5 MG TAB PO SCH ×2 (09:23→20:44)
[2018-11-09] MEDS: Digoxin 0.125 MG TAB PO SCH (09:23)
[2018-11-09] MEDS: Dabigatran 150 mg Capsule PO SCH ×2 (09:24→20:44)
[2018-11-09] MEDS: DULoxetine 60 MG CAP PO SCH (09:24)
[2018-11-09] MEDS: traMADol HCl 50 MG TAB PO PRN (12:55)
[2018-11-10] MEDS ORDERED: Diltiazem 125 MG in Sodium Chloride 0.9% 100 ML IVPB SCH (00:30)
[2018-11-10] MEDS: HYDROcodone/Acetaminophen 10/325 mg Tablet PO PRN ×3 (07:00→21:49)
[2018-11-10] MEDS: Furosemide 40 MG TAB PO SCH (07:02)
[2018-11-10] MEDS: Levothyroxine Sodium 50 MCG TAB PO SCH (07:02)
[2018-11-10 08:25] LABS: #Lymphocytes 0.9 thou/uL (1.20-3.40); #Monocytes 0.8 thou/uL (0.11-0.59); #Neutrophils 6.8 thou/uL (1.40-6.50); %Basophils 0.1 % (0.0-1.0); %Eosinophils 0.4 % (0.0-10.0); %Lymphocytes 10.7 % (21.0-51.0); %Monocytes 8.9 % (0.0-10.0); %Neutrophils 79.9 % (42.0-75.0); Hemoglobin 11.2 g/dL (12.0-16.0); Mean Corpuscular HGB CONC 33.4 g/dL (32.0-36.0); Mean Corpuscular Hemoglobin 32.8 pg (27.0-31.0); Mean Corpuscular Volume 98.1 fL (78.0-98.0); Mean Platelet Volume 7.3 fL (7.4-10.4); Platelet Count 298 thou/uL (130-400); RBC Distribution Width 12.4 % (11.5-14.5); Red Blood Cell (RBC) Count 3.42 mill/uL (4.20-5.40); White Blood Cell (WBC) Count 8.5 thou/uL (4.8-10.8)
[2018-11-10 08:28] LABS: Anion Gap 13 mmol/L (10-20); BUN (Urea Nitrogen) 9 mg/dL (9.8-20.1); Calc. Creatinine Clearance 81 mL/min (70-130); Calcium 9.3 mg/dL (7.8-10.44); Carbon Dioxide 28 mmol/L (23-31); Chloride 95 mmol/L (98-107); Estimated GFR-MDRD 87; Glucose 135 mg/dL (83-110); Potassium 3.7 mmol/L (3.5-5.1); Sodium 132 mmol/L (136-145)
[2018-11-10 09:00] LABS: Digoxin 0.71 ng/mL (0.8-2.0)
[2018-11-10] MEDS: Digoxin 0.25 MG TAB PO SCH (09:50)
[2018-11-10] MEDS: Dabigatran 150 mg Capsule PO SCH ×2 (09:50→21:04)
[2018-11-10] MEDS: ALPRAZolam 0.5 MG TAB PO SCH ×2 (09:50→21:04)
[2018-11-10] MEDS: DULoxetine 60 MG CAP PO SCH (09:51)
--- NOTE | 2018-11-10 10:05 | CON ---
DATE OF CONSULTATION: 11/10/2018 CONSULTING PHYSICIAN: Orthopedic surgeon. REASON FOR CONSULTATION: Medical management of atrial fibrillation. HISTORY OF PRESENT ILLNESS: The patient is an 83-year-old female, who fell and sustained a fracture of the left humerus, which was affixed by Dr. Garcia yesterday with some screws, and apparently, she went up on her ventricular rate of her chronic atrial fibrillation and Medical Team was called for further management of this problem. She has chronic atrial fibrillation. She is chronically anticoagulated on Pradaxa at home. She is on digoxin orally, and apparently, her rate went up to 120's and 30's, and now it is down to normal rate below 100. She does not have any complaints. She did not even notice that her heart was beating faster. She did not have any chest pain during this visit, it was just spotted on the monitor. PAST MEDICAL HISTORY: Positive for, 1. Chronic atrial fibrillation. 2. Hypertension. 3. Hypothyroidism. 4. Chronic back pain. 5. GERD. 6. Anxiety and depression. PAST SURGICAL HISTORY: 1. Back surgery x5. 2. Right knee replacement. 3. Left humerus repair status post fracture. 4. Hysterectomy. 5. Bladder suspension. 6. Right mastoidectomy. 7. Right foot surgery. FAMILY HISTORY: Noncontributory. SOCIAL HISTORY: She used to smoke, but quit approximately 15 years ago. She drinks alcohol on and off. She does not use any illicit drugs. ALLERGIES: MORPHINE, PREDNISONE, SULFA. MEDICATIONS: 1. Alprazolam 0.5 mg twice a day. 2. Pradaxa 150 mg twice a day. 3. Digoxin 0.125 mg once a day and 0.25 mg. She has both of those every other day. 4. Cymbalta 60 mg once a day. 5. Fentanyl 50 mcg slow IV push p.r.n. 6. Furosemide 40 mg daily. 7. Hydralazine p.o. 10 mg p.r.n. 8. Hydrocodone 10/325 mg two tablets q.4 hours p.r.n. as needed. 9. Irbesartan 300 mg once a day. 10. Levothyroxine 50 mcg once a day. 11. Pantoprazole 40 mg once a day. 12. MiraLAX 17 g once a day p.r.n. 13. Tramadol 100 mg q.6 hours p.r.n. as needed. REVIEW OF SYSTEMS: All systems were reviewed and they are negative, except for those symptoms mentioned in HPI and the pain and the swelling of the left upper extremities status post surgery. PHYSICAL EXAMINATION: VITAL SIGNS: Blood pressure is 136/63, pulse is 72, temperature is 98.1, respiratory rate is 16, O2 saturation is 95% on room air. HEENT: Head is posttraumatic with some bruises around her eyes. Eyes are PERRLA. Sclerae are nonicteric. Conjunctivae pinkish. Oral mucosa is moist. NECK: Supple. LUNGS: Clear. HEART: S1, S2. Irregularly irregular. No S3. No S4. No any murmur. ABDOMEN: Soft, obese, nontender, nondistended. EXTREMITIES: No clubbing, cyanosis, or edema, except for the left upper extremity, which with 2+ swelling of her left hand. NEUROLOGICAL: She follows my commands. She all 4 extremities. There is no any motor or sensory deficits present. Cranial nerves are intact. LABORATORY DATA: None. IMPRESSION: 1. Atrial fibrillation with rapid ventricular response. At this point, rate is controlled. 2. Status post fall and fracture of the left humerus and status post fixation. 3. Hypertension. 4. Chronic back pain. 5. Gastroesophageal reflux disease. 6. Anxiety and depression. PLAN: I am going to check her digoxin level. Her heart rate is below 100. At the time of my evaluation, she seems to be comfortable. She is started on her Pradaxa for stroke prevention. We will check her CBC and basic metabolic panel and continue her pain management with oral and IV as needed opioids. She is getting physical therapy. She had first session yesterday. Job ID: [id number]
[2018-11-10 15:15] LABS: Bilirubin Negative (Negative); Blood, Urine Negative (Negative); Clarity CLEAR (Clear); Glucose, Urine (Dipstick) Negative (Negative); Leukocyte Negative (Negative); Nitrite Negative (Negative); Protein, Urine (Dipstick) Negative (Neg-Trace); Specific Gravity, Urine 1.015 (1.002-1.036)
[2018-11-10 15:17] LABS: Bacteria/HPF None Seen HPF (None Seen); Hyaline Casts/LPF 4-6 HYALINE CAST LPF (0-3 Hyaline); Pathc Cast-AUWi Flag 1.63 (0-2.49); Squamous Epithelial 0-3 HPF (0-3); WBC/HPF 0-3 HPF (0-3)
--- NOTE | 2018-11-10 16:10 | CON ---
DATE OF CONSULTATION: HISTORY OF PRESENT ILLNESS: The patient is an 83-year-old woman, who was admitted for hand surgery and was noted to have an elevated heart rate. The patient has a history of chronic atrial fibrillation. She is followed primarily by Dr. Taz Varma. She does not takes Pradaxa. The patient stopped this medication prior to undergoing surgery. She underwent left arm surgery. She was noted to have a rapid heart rate. The patient denies having any palpitations. The patient was admitted a few months ago after a fall. The dose of her digoxin was increased. She was also found to have a moderate pericardial effusion. The patient has been followed primarily by Dr. Varma. PAST MEDICAL HISTORY: 1. Atrial fibrillation. 2. Pericardial effusion. 3. Hypertension. 4. Hypothyroidism. 5. GE reflux. PAST SURGICAL HISTORY: Back surgery, knee surgery, hysterectomy, and foot surgery. SOCIAL HISTORY: Nonsmoker. MEDICATIONS: See nursing list. ALLERGIES: SULFA DRUGS, PREDNISONE, AND MORPHINE. REVIEW OF SYSTEMS: Ten-point system otherwise unremarkable. PHYSICAL EXAMINATION: GENERAL: This is an obese woman, in no acute distress, VITAL SIGNS: With a blood pressure 164/80. NECK: No jugular distention. LUNGS: Clear to auscultation. HEART: Irregular rate and rhythm. Normal S1 and S2 with no murmurs. ABDOMEN: Nondistended. EXTREMITIES: Show a swollen left upper extremity. LABORATORY RESULTS: Her sodium is 132, potassium 3.7, chloride 95, bicarb 28, BUN 9, and creatinine 0.65. White blood cell count 8.5, hemoglobin 11.2, hematocrit 33.5, and platelets of 298. EKG revealed atrial fibrillation with a rapid ventricular response with poor R-wave progression and low voltage QRS. IMPRESSION: 1. Rapid atrial fibrillation. 2. Status post left arm surgery. 3. Pericardial effusion. 4. Hypertension. 5. Dyslipidemia. 6. Anxiety. PLAN: This patient presents after undergoing surgery. She had developed rapid atrial fibrillation. Her heart rate now is well controlled on her higher dose digoxin. The patient has been restarted on Pradaxa. From a cardiac standpoint, her blood pressure has been stable. We would continue digoxin and Pradaxa. We will follow this patient with you through her hospitalization. Job ID: [id number] [facility]
--- NOTE | 2018-11-10 16:34 | PRG ---
DATE OF SERVICE: 11/10/2018 TIME: 4:05 p.m. SUBJECTIVE: Pam is an 83-year-old white female, who is postop day 3 from a left elbow bicondylar distal humeral open reduction and internal fixation. Her pain is controlled with oral meds now. She has been transferred down to telemetry for evaluation and monitoring because of her atrial fibrillation. She has run little bit of elevated blood pressures, but she has not gone into a rapid ventricular response or tachycardia at this point. No further recommendations have been forwarded by Cardiology. The patient is already anticoagulated and has known AFib. OBJECTIVE: GENERAL: She is alert and oriented to person, place, time, and situation, grossly nonfocal, appropriate with examiner. VITAL SIGNS: Temperature 97.6, pulse 85, respiratory rate 18, O2 saturation 97% on room air, and blood pressure 162/90. EXTREMITIES: Her splint is intact. She has good, improved digital excursion as compared to 2 days ago, but she does have some edematous changes in the dorsum of the left hand. Sling is intact. Splint appears dry. IMPRESSION: 1. Postoperative day 3, left bicondylar distal humeral fracture with open reduction and internal fixation. 2. Chronic atrial fibrillation. 3. Hypertension. 4. Hypothyroidism. 5. Gastroesophageal reflux disease. 6. Anxiety and depression. PLAN: Continue current care. The patient would like to go to a halfway and placement is pending at this time. We will recheck over the weekend. Job ID: [id number]
[2018-11-11] MEDS: Levothyroxine Sodium 50 MCG TAB PO SCH (05:51)
[2018-11-11] MEDS: HYDROcodone/Acetaminophen 10/325 mg Tablet PO PRN ×4 (09:23→23:09)
[2018-11-11] MEDS: DULoxetine 60 MG CAP PO SCH (09:25)
[2018-11-11] MEDS: Digoxin 0.125 MG TAB PO SCH (09:25)
[2018-11-11] MEDS: Dabigatran 150 mg Capsule PO SCH ×2 (09:26→21:58)
[2018-11-11] MEDS: Furosemide 40 MG TAB PO SCH (09:26)
[2018-11-11] MEDS: ALPRAZolam 0.5 MG TAB PO SCH ×2 (09:26→21:58)
[2018-11-11] MEDS ORDERED: Digoxin 0.125 MG TAB PO SCH (17:00)
--- NOTE | 2018-11-11 17:33 | PRG ---
DATE OF SERVICE: 11/11/2018 SUBJECTIVE: The patient is seen and examined at the bedside. Her daughter is present during this visit in the room. Her daughter noticed that her mental condition is somewhat off, since she is admitted to the hospital, but apparently she had very similar episodes before. As soon as she gets admitted to the hospital, her mental condition gets worse and then gets better when she goes home. This morning, she is quite drowsy and that is most likely related to her pain medications. OBJECTIVE: VITAL SIGNS: Blood pressure is 167/81, pulse is 83, respiratory rate is 16, O2 saturation is 93% on room air, and her temperature is 97.9. GENERAL: She is difficult to examine because she is in quite deep sleep. She just took her Vicodin an hour ago. LUNGS: Clear. HEART: S1 and S2 normal. ABDOMEN: Soft and nontender. EXTREMITIES: Left upper extremity is in the cast and the swelling of her left hand is somewhat improved since yesterday. NEUROLOGIC: Postponed since she is on the influence of pain medications. LABORATORY DATA: None today. Urinalysis was done yesterday showed trace of ketones, 4.0 of urobilinogen, and 4 to 6 hyaline casts. Digoxin level 0.71. IMPRESSION: 1. Atrial fibrillation with rapid ventricular response. At this point, she is rate controlled, constantly. 2. Low digoxin level. We are going to give her additional 0.125 mg of digoxin x1. 3. Status post fall and fracture of the left humerus status post open reduction and internal fixation. 4. Hypertension. 5. Chronic back pain. 6. Gastroesophageal reflux disease. 7. Anxiety and depression. 8. Hypothyroidism. 9. Over-sedation, this is most likely from opiate use. PLAN: Plan is to decrease her Vicodin to 1 tablet every 4 hours to avoid sedation. Give her additional dose of digoxin 0.125 mg p.o. x1 dose only. Continue her Pradaxa and continue PT. Job ID: [id number]
[2018-11-12 05:35] LABS: #Eosinphils 0.1 thou/uL (0.0-0.7); #Lymphocytes 1.2 thou/uL (1.20-3.40); #Monocytes 0.7 thou/uL (0.11-0.59); #Neutrophils 3.4 thou/uL (1.40-6.50); %Basophils 0.3 % (0.0-1.0); %Eosinophils 1.9 % (0.0-10.0); %Lymphocytes 21.8 % (21.0-51.0); Hemoglobin 11.1 g/dL (12.0-16.0); Mean Corpuscular HGB CONC 34.5 g/dL (32.0-36.0); Mean Corpuscular Hemoglobin 33.4 pg (27.0-31.0); Mean Corpuscular Volume 96.7 fL (78.0-98.0); Platelet Count 348 thou/uL (130-400); RBC Distribution Width 12.4 % (11.5-14.5); Red Blood Cell (RBC) Count 3.31 mill/uL (4.20-5.40); White Blood Cell (WBC) Count 5.4 thou/uL (4.8-10.8)
[2018-11-12 05:59] LABS: Anion Gap 11 mmol/L (10-20); BUN (Urea Nitrogen) 6 mg/dL (9.8-20.1); Calc. Creatinine Clearance 89 mL/min (70-130); Calcium 9.4 mg/dL (7.8-10.44); Carbon Dioxide 28 mmol/L (23-31); Chloride 96 mmol/L (98-107); Estimated GFR-MDRD Greater than 90; Glucose 103 mg/dL (83-110); Potassium 3.3 mmol/L (3.5-5.1); Sodium 132 mmol/L (136-145)
[2018-11-12] MEDS: Levothyroxine Sodium 50 MCG TAB PO SCH (06:16)
[2018-11-12] MEDS: HYDROcodone/Acetaminophen 10/325 mg Tablet PO PRN ×5 (06:16→20:14)
[2018-11-12] MEDS ORDERED: Potassium Chloride 20 MEQ TAB PO SCH ×2 (08:15→12:00)
[2018-11-12] MEDS: Digoxin 0.125 MG TAB PO SCH (08:17)
[2018-11-12] MEDS: Dabigatran 150 mg Capsule PO SCH ×2 (08:17→20:12)
[2018-11-12] MEDS: DULoxetine 60 MG CAP PO SCH (08:20)
[2018-11-12] MEDS: Furosemide 40 MG TAB PO SCH (08:20)
[2018-11-12] MEDS: ALPRAZolam 0.5 MG TAB PO SCH ×2 (08:21→20:12)
[2018-11-12] MEDS ORDERED: Magnesium 2 GM/50 ML 2 GM in Premix Bag 1 BAG IVPB SCH (09:00)
[2018-11-12] MEDS ORDERED: NIFEdipine XL 30 MG TAB PO SCH ×2 (10:00)
[2018-11-12] MEDS ORDERED: Calcium Carbonate 500 MG ChewTAB PO PRN (11:05)
[2018-11-12] MEDS ORDERED: Mag-Al 1200 mg/1200 mg/30 ML UDCUP PO PRN (11:05)
--- NOTE | 2018-11-12 14:01 | EKG ---
Test Reason : STAT Blood Pressure : / mmHG Vent. Rate : 117 BPM Atrial Rate : 111 BPM P-R Int : 000 ms QRS Dur : 084 ms QT Int : 294 ms P-R-T Axes : 000 -18 175 degrees QTc Int : 410 ms Atrial fibrillation with rapid ventricular response Low voltage QRS Inferior infarct (cited on or before 30-MAR-1998) Cannot rule out Anterior infarct (cited on or before 16-MAY-2015) Abnormal ECG When compared with ECG of 03-NOV-2018 09:20, (Unconfirmed) No significant change was found Confirmed by NANDO DOBSON ([id number]) on 11/12/2018 2:01:03 PM Referred By: STELLA MCDERMOTT Confirmed By:NANDO DOBSON
--- NOTE | 2018-11-12 14:16 | PDOC.PN ---
- Subjective Encounter Start Date: 11/12/18 Encounter Start Time: 08:30 Patient seen and examined for med mngt. No fever/chills. No CP/SOB. No new complaints. No overnight events - Objective Resuscitation Status - Order Detail: 11/10/18 16:09 Resuscitation Status Routine Co-Sign Provider: Resuscitation Status: DNAR: NO Resuscitation Discussed with: Patient MAR Reviewed: Yes Vital Signs & Weight: Vital Signs (12 hours) Temp Pulse Resp BP BP Pulse Ox 11/12/18 12:00 97.9 F 87 20 166/88 H 93 L 11/12/18 11:29 166/88 H 11/12/18 10:39 77 181/86 H 11/12/18 10:33 77 181/86 H 11/12/18 08:17 70 11/12/18 08:00 94 L 11/12/18 07:58 98.2 F 86 20 187/87 H 94 L 11/12/18 04:00 98.1 F 79 18 178/86 H 94 L Weight Weight 166 lb I&O: 11/11/18 11/12/18 11/13/18 06:59 06:59 06:59 Intake Total 1020 1160 Balance 1020 1160 Result Diagrams: 11/12/18 05:09 11/12/18 05:09 Additional Labs: Laboratory Tests 11/12/18 05:09 Magnesium 1.6 Radiology Reviewed by me: No (Echo - normal EF) EKG Reviewed by me: Yes (Tele Afib) Phys Exam - Physical Examination Constitutional: NAD Respiratory: no wheezing, no rhonchi Cardiovascular: RRR, no rub Gastrointestinal: soft, non-tender, positive bowel sounds Musculoskeletal: no edema Neurological: moves all 4 limbs Psychiatric: A&O x 3 Dx/Plan - Plan DVT proph w/SCDs IMPRESSION: Afib with RVR - rate controlled Hypokalemia/Hypomagnesemia Chronic Hyponatremia Obesity BMI 30.4 HTN HLD GERD Chronic Anemia PLAN: Replace Potassium/Magnessium orally (Patient refuses IV access) Cont Digoxin On Anticoag Await placement Cont other meds as below Review of Systems - Review of Systems Respiratory: negative: Cough, Dry, Shortness of Breath, Hemoptysis, SOB with Excertion, Pleuritic Pain, Sputum, Wheezing Cardiovascular: negative: chest pain, palpitations, orthopnea, paroxysmal nocturnal dyspnea, edema, light headedness, other Gastrointestinal: negative: Nausea, Vomiting, Abdominal Pain, Diarrhea, Constipation, Melena, Hematochezia, Other - Medications/Allergies Allergies/Adverse Reactions: Allergies Allergy/AdvReac Type Severity Reaction Status Date / Time morphine Allergy Verified 11/06/18 16:09 prednisone Allergy Verified 11/06/18 16:09 Sulfa (Sulfonamide Allergy Verified 11/06/18 16:09 Antibiotics) Medications: Current Medications Hydrocodone Bitart/Acetaminophen ([place] 10/325) 1 tab PO Q4H PRN PRN Reason: Pain (1-3) Last Admin: 11/12/18 11:44 Dose: 1 tab Hydrocodone Bitart/Acetaminophen ([place] 10/325) 2 tab PO Q4H PRN PRN Reason: Severe Pain (7-10) Al Hydroxide/Mg Hydroxide (Maalox) 30 ml PO Q6H PRN PRN Reason: Heartburn or Indigestion Alprazolam (Xanax) 0.5 mg PO BID [facility] Last Admin: 11/12/18 08:21 Dose: 0.5 mg Bisacodyl (Dulcolax) 10 mg [place] DAILY PRN PRN Reason: Constipation Calcium Carbonate (Tums) 1,000 mg PO Q4H PRN PRN Reason: Heartburn or Indigestion Dabigatran (Pradaxa) 150 mg PO BID [facility] Last Admin: 11/12/18 08:17 Dose: 150 mg Digoxin (Lanoxin) 0.125 mg PO SuTuThSa@0900 [facility] Last Admin: 11/12/18 08:17 Dose: 0.125 mg Digoxin (Lanoxin) 0.25 mg PO MoWeFr@0900 [facility] Last Admin: 11/10/18 09:50 Dose: 0.25 mg Duloxetine HCl (Cymbalta) 60 mg PO DAILY [facility] Last Admin: 11/12/18 08:20 Dose: 60 mg Fentanyl (Sublimaze) 50 mcg SLOW IVP Q30M PRN PRN Reason: Severe breakthrough pain Last Admin: 11/08/18 10:30 Dose: 50 mcg Furosemide (Lasix) 40 mg PO DAILY-[facility] Last Admin: 11/12/18 08:20 Dose: 40 mg Hydralazine HCl (Apresoline) 10 mg PO Q4H PRN PRN Reason: SBP Greater Than 180 Last Admin: 11/12/18 00:28 Dose: 10 mg Ropivacaine (Ropivacaine 0.2% 550 Ml) 550 mls @ 0 mls/hr NERVE BLCK INF [facility] Irbesartan (Avapro) 300 mg PO DAILY [facility] Last Admin: 11/12/18 08:16 Dose: 300 mg Levothyroxine Sodium (Synthroid) 50 mcg PO 0600 [facility] Last Admin: 11/12/18 06:16 Dose: 50 mcg Magnesium Chloride (Slow-Mag) 64 mg PO BID [facility] Magnesium Hydroxide (Milk Of Magnesium) 30 ml PO DAILY PRN PRN Reason: Constipation Nifedipine (Procardia Xl) 30 mg PO DAILY [facility] Ondansetron HCl (Zofran) 4 mg IVP Q6H PRN PRN Reason: Nausea/Vomiting Last Admin: 11/08/18 01:50 Dose: 4 mg Ondansetron HCl (Zofran) 4 mg PO Q6H PRN PRN Reason: Nausea Pantoprazole Sodium (Protonix) 40 mg PO DAILY [facility] Last Admin: 11/12/18 08:20 Dose: 40 mg Polyethylene Glycol (Miralax) 17 gm PO DAILYPRN PRN PRN Reason: Constipation Last Admin: 11/09/18 17:18 Dose: 17 gm Promethazine HCl (Phenergan) 12.5 mg IM Q4H PRN PRN Reason: Nausea Sodium Chloride (Flush - Normal Saline) 10 ml IVF Q12HR [facility] Last Admin: 11/12/18 08:21 Dose: Not Given Sodium Chloride (Flush - Normal Saline) 10 ml IVF PRN PRN PRN Reason: Saline Flush Tramadol HCl (Ultram) 50 mg PO Q6H PRN PRN Reason: Mild Pain (1-3) Tramadol HCl (Ultram) 100 mg PO Q6H PRN PRN Reason: Moderate Pain 4-6 Last Admin: 11/09/18 12:55 Dose: 100 mg Zolpidem Tartrate (Ambien) 5 mg PO HSPRN PRN PRN Reason: Insomnia
[2018-11-12] MEDS: Magnesium Chloride 64 MG TAB PO SCH (20:13)
[2018-11-12] MEDS ORDERED: Magnesium Chloride 64 MG TAB PO SCH (21:00)
[2018-11-12] MEDS: Zolpidem Tartrate 5 MG TAB PO PRN (22:09)
[2018-11-13] MEDS: HYDROcodone/Acetaminophen 10/325 mg Tablet PO PRN ×6 (00:26→21:18)
[2018-11-13] MEDS: Levothyroxine Sodium 50 MCG TAB PO SCH (04:47)
[2018-11-13 05:34] LABS: Anion Gap 14 mmol/L (10-20); BUN (Urea Nitrogen) 9 mg/dL (9.8-20.1); Calc. Creatinine Clearance 85 mL/min (70-130); Calcium 9.5 mg/dL (7.8-10.44); Carbon Dioxide 24 mmol/L (23-31); Chloride 98 mmol/L (98-107); Estimated GFR-MDRD Greater than 90; Glucose 102 mg/dL (83-110); Potassium 3.7 mmol/L (3.5-5.1); Sodium 132 mmol/L (136-145)
[2018-11-13] MEDS: Furosemide 40 MG TAB PO SCH (07:18)
--- NOTE | 2018-11-13 08:45 | PRG ---
DATE OF SERVICE: 11/10/2018 ADDENDUM: I discussed with the patient and her significant other her code status after transfer and she elects to be a DO NOT RESUSCITATE. The patient's significant other was not present as was patient caregiver assisted living. Job ID: [id number]
[2018-11-13] MEDS ORDERED: NIFEdipine XL 30 MG TAB PO SCH (09:00)
[2018-11-13] MEDS: Digoxin 0.25 MG TAB PO SCH (09:03)
[2018-11-13] MEDS: DULoxetine 60 MG CAP PO SCH (09:05)
[2018-11-13] MEDS: NIFEdipine XL 30 MG TAB PO SCH (09:05)
[2018-11-13] MEDS: Dabigatran 150 mg Capsule PO SCH ×2 (09:08→21:19)
[2018-11-13] MEDS: ALPRAZolam 0.5 MG TAB PO SCH ×2 (09:08→21:18)
[2018-11-13] MEDS: Magnesium Chloride 64 MG TAB PO SCH ×2 (09:23→21:19)
--- NOTE | 2018-11-13 11:31 | PRG ---
DATE OF SERVICE: 11/13/2018 SUBJECTIVE: Pam is an 83-year-old white female, who is postop day 5 from a left distal humerus bicondylar open reduction and internal fixation. She does have a relatively dense nerve palsy involving the left wrist. OBJECTIVE: She has very little extension of the index, long, ring, and small fingers and thumb. 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 She does have edematous changes in the dorsum of the left hand. After removal of the splint, her stitches are intact and clean. No erythema. No purulence or drainage noted. IMPRESSION: 1. An 83-year-old white female, postop day 6, left bicondylar distal femoral fracture, open reduction and internal fixation. 2. Radial nerve palsy. 3. Chronic atrial fibrillation. 4. Hypertension. 5. Hypothyroidism. 6. Gastroesophageal reflux disease. 7. Anxiety and depression. PLAN: 1. Placement is pending. She believes she will be placed locally in a skilled facility. 2. I changed her splint from a full circumferential to a posterior splint for removal for bathing and gentle [id number] exercises. Stitches are intact. 3. Follow up with Dr. Garcia 6 to 10 days. Job ID: [id number]
--- NOTE | 2018-11-13 14:51 | PDOC.PN ---
- Subjective Encounter Start Date: 11/13/18 Encounter Start Time: 12:00 Patient seen and examined for med mngt. No CP/SOB/fever. No new complaints. No overnight events - Objective Resuscitation Status - Order Detail: 11/10/18 16:09 Resuscitation Status Routine Co-Sign Provider: Resuscitation Status: DNAR: NO Resuscitation Discussed with: Patient MAR Reviewed: Yes Vital Signs & Weight: Vital Signs (12 hours) Temp Pulse Resp BP BP Pulse Ox 11/13/18 11:38 98 F 83 16 134/73 94 L 11/13/18 09:05 95 141/79 H 11/13/18 09:03 90 11/13/18 08:00 93 L 11/13/18 07:52 97.9 F 89 17 142/79 H 93 L 11/13/18 04:00 98.0 F 85 18 171/82 H 96 Weight Weight 166 lb I&O: 11/12/18 11/13/18 11/14/18 06:59 06:59 06:59 Intake Total 1160 1160 Output Total 400 Balance 1160 760 Result Diagrams: 11/12/18 05:09 11/13/18 05:02 EKG Reviewed by me: Yes (Tele Afib) Phys Exam - Physical Examination Constitutional: NAD Neurological: moves all 4 limbs Psychiatric: A&O x 3 Dx/Plan - Plan IMPRESSION: Afib with RVR - rate controlled Hypokalemia/Hypomagnesemia - replaced Chronic Hyponatremia Obesity BMI 30.4 HTN HLD GERD Chronic Anemia PLAN: Cont Digoxin/Anticoag Await placement Cont other meds as below Review of Systems - Review of Systems Respiratory: negative: Cough, Dry, Shortness of Breath, Hemoptysis, SOB with Excertion, Pleuritic Pain, Sputum, Wheezing Cardiovascular: negative: chest pain, palpitations, orthopnea, paroxysmal nocturnal dyspnea, edema, light headedness, other - Medications/Allergies Allergies/Adverse Reactions: Allergies Allergy/AdvReac Type Severity Reaction Status Date / Time morphine Allergy Verified 11/06/18 16:09 prednisone Allergy Verified 11/06/18 16:09 Sulfa (Sulfonamide Allergy Verified 11/06/18 16:09 Antibiotics) Medications: Current Medications Hydrocodone Bitart/Acetaminophen ([place] 10/325) 1 tab PO Q4H PRN PRN Reason: Pain (1-3) Last Admin: 11/12/18 11:44 Dose: 1 tab Hydrocodone Bitart/Acetaminophen ([place] 10/325) 2 tab PO Q4H PRN PRN Reason: Severe Pain (7-10) Last Admin: 11/13/18 13:57 Dose: 2 tab Al Hydroxide/Mg Hydroxide (Maalox) 30 ml PO Q6H PRN PRN Reason: Heartburn or Indigestion Alprazolam (Xanax) 0.5 mg PO BID [facility] Last Admin: 11/13/18 09:08 Dose: 0.5 mg Bisacodyl (Dulcolax) 10 mg [place] DAILY PRN PRN Reason: Constipation Calcium Carbonate (Tums) 1,000 mg PO Q4H PRN PRN Reason: Heartburn or Indigestion Dabigatran (Pradaxa) 150 mg PO BID [facility] Last Admin: 11/13/18 09:08 Dose: 150 mg Digoxin (Lanoxin) 0.125 mg PO SuTuThSa@0900 [facility] Last Admin: 11/12/18 08:17 Dose: 0.125 mg Digoxin (Lanoxin) 0.25 mg PO MoWeFr@0900 [facility] Last Admin: 11/13/18 09:03 Dose: 0.25 mg Duloxetine HCl (Cymbalta) 60 mg PO DAILY [facility] Last Admin: 11/13/18 09:05 Dose: 60 mg Fentanyl (Sublimaze) 50 mcg SLOW IVP Q30M PRN PRN Reason: Severe breakthrough pain Last Admin: 11/08/18 10:30 Dose: 50 mcg Furosemide (Lasix) 40 mg PO DAILY-AC [facility] Last Admin: 11/13/18 07:18 Dose: 40 mg Hydralazine HCl (Apresoline) 10 mg PO Q4H PRN PRN Reason: SBP Greater Than 180 Last Admin: 11/12/18 00:28 Dose: 10 mg Ropivacaine (Ropivacaine 0.2% 550 Ml) 550 mls @ 0 mls/hr NERVE BLCK INF [facility] Irbesartan (Avapro) 300 mg PO DAILY [facility] Last Admin: 11/13/18 09:03 Dose: 300 mg Levothyroxine Sodium (Synthroid) 50 mcg PO 0600 [facility] Last Admin: 11/13/18 04:47 Dose: 50 mcg Magnesium Chloride (Slow-Mag) 64 mg PO BID [facility] Last Admin: 11/13/18 09:23 Dose: 64 mg Magnesium Hydroxide (Milk Of Magnesium) 30 ml PO DAILY PRN PRN Reason: Constipation Nifedipine (Procardia Xl) 30 mg PO DAILY [facility] Last Admin: 11/13/18 09:05 Dose: 30 mg Ondansetron HCl (Zofran) 4 mg IVP Q6H PRN PRN Reason: Nausea/Vomiting Last Admin: 11/08/18 01:50 Dose: 4 mg Ondansetron HCl (Zofran) 4 mg PO Q6H PRN PRN Reason: Nausea Pantoprazole Sodium (Protonix) 40 mg PO DAILY [facility] Last Admin: 11/13/18 09:08 Dose: 40 mg Polyethylene Glycol (Miralax) 17 gm PO DAILYPRN PRN PRN Reason: Constipation Last Admin: 11/09/18 17:18 Dose: 17 gm Promethazine HCl (Phenergan) 12.5 mg IM Q4H PRN PRN Reason: Nausea Sodium Chloride (Flush - Normal Saline) 10 ml IVF Q12HR [facility] Last Admin: 11/13/18 09:19 Dose: Not Given Sodium Chloride (Flush - Normal Saline) 10 ml IVF PRN PRN PRN Reason: Saline Flush Tramadol HCl (Ultram) 50 mg PO Q6H PRN PRN Reason: Mild Pain (1-3) Tramadol HCl (Ultram) 100 mg PO Q6H PRN PRN Reason: Moderate Pain 4-6 Last Admin: 11/09/18 12:55 Dose: 100 mg Zolpidem Tartrate (Ambien) 5 mg PO HSPRN PRN PRN Reason: Insomnia Last Admin: 11/12/18 22:09 Dose: 5 mg
[2018-11-13] MEDS: Zolpidem Tartrate 5 MG TAB PO PRN (23:32)
[2018-11-14] MEDS: HYDROcodone/Acetaminophen 10/325 mg Tablet PO PRN ×4 (01:39→14:49)
[2018-11-14] MEDS: Levothyroxine Sodium 50 MCG TAB PO SCH (05:23)
[2018-11-14] MEDS: Furosemide 40 MG TAB PO SCH (07:18)
[2018-11-14] MEDS: Digoxin 0.125 MG TAB PO SCH (08:48)
[2018-11-14] MEDS: NIFEdipine XL 30 MG TAB PO SCH (08:48)
[2018-11-14] MEDS: Dabigatran 150 mg Capsule PO SCH (08:48)
[2018-11-14] MEDS: DULoxetine 60 MG CAP PO SCH (08:49)
[2018-11-14] MEDS: Magnesium Chloride 64 MG TAB PO SCH (08:49)
[2018-11-14] MEDS: ALPRAZolam 0.5 MG TAB PO SCH (08:49)
[2018-11-14 11:33] VITALS: BP 131/65; TEMP 98.1
--- NOTE | 2018-11-15 09:15 | DIS ---
DATE OF ADMISSION: 11/07/2018 DATE OF DISCHARGE: 11/14/2018 HISTORY OF PRESENT ILLNESS: Ms. Santacruz is an 83-year-old female, status post fall with a left supracondylar humerus fracture without intra-articular split. The patient underwent open reduction and internal fixation on 11/07/2018. The patient was admitted for pain control. The patient's past medical history includes chronic pain with low back pain, history of atrial fibrillation, chronic hyponatremia, hypertension, hyperlipidemia, reflux, chronic anemia. The patient was previously on anticoagulation and followed by Dr. Gonzalez before this fall. The patient was admitted postop with the pain control issues. She had a block in place. The patient was noted to have a radial nerve palsy postoperatively. She went into atrial fibrillation on and was transferred to the tele floor to be monitored. The patient was monitored overnight and no medication changes were made. She was desired to be transferred to nursing home because of difficulty mobilizing as well as aftercare needs. The patient was set to go nursing home facility and the family desired to go somewhere else. The switch could not be made over the weekend. The patient is a do not resuscitate. She is, otherwise, without complaints. Resting comfortably in bed. On exam, the patient has no extension of her fingers or thumb. She has sensation intact to the dorsum of her hand as well as she is able to flex and extend her fingers. Swelling is improved. Splint is clean, dry, and intact. Discharge is to a nursing home. The patient will follow up with me in 1 week on Tuesday. We will set up Occupational Therapy to help placement of a splint for left hand. The patient is going to be placed on a removable splint to begin elbow, wrist, and hand motion. The patient was discharged with a single prescription of pain med. She will restart her home dose when this is completed. The patient will remain nonweightbearing in a sling until I see her back. The patient will be discharged on her previous home medications. Job ID: [id number]
== END 2018-11-14 15:40 | DRG 493 ==
LOC: SDC 05:47 → SURG A 14:24 → 2SE 11-10 01:42
PROVIDERS: ADMIT Orthopaedic Surgery; ATTEND Orthopaedic Surgery
PROC: 0PSG04Z Reposition Left Humeral Shaft with Internal Fixation Device, Open Approach (ICD-10-PCS; principal; 2018-11-07)
DX: S42.412A Displaced simple supracondylar fracture without intercondylar fracture of left humerus, initial encounter for closed fracture (principal); I31.3 Pericardial effusion (noninflammatory); E87.1 Hypo-osmolality and hyponatremia; W19.XXXA Unspecified fall, initial encounter; Y92.9 Unspecified place or not applicable; Z66 Do not resuscitate; I48.2 Chronic atrial fibrillation; I10 Essential (primary) hypertension; E03.9 Hypothyroidism, unspecified; K21.9 Gastro-esophageal reflux disease without esophagitis; F41.9 Anxiety disorder, unspecified; D64.9 Anemia, unspecified; F32.9 Major depressive disorder, single episode, unspecified; E66.9 Obesity, unspecified; E87.6 Hypokalemia; G56.32 Lesion of radial nerve, left upper limb; E83.42 Hypomagnesemia; Z68.30 Body mass index [BMI] 30.0-30.9, adult; Z90.710 Acquired absence of both cervix and uterus; Z79.01 Long term (current) use of anticoagulants; Z87.891 Personal history of nicotine dependence; Z88.5 Allergy status to narcotic agent; Z88.8 Allergy status to other drugs, medicaments and biological substances; Z88.2 Allergy status to sulfonamides; Z79.899 Other long term (current) drug therapy
CPT/HCPCS: 36415; 76000; 80048; 80162; 81001; 83735; 85025; 86850; 86900; 86901; 93005; 93010; 99203; A4306; C1713; G0463; J0690; J1885; J2001; J2250; J2405; J2704; J2795; J3010; J3490

== ENCOUNTER 2019-02-04 13:49 | Emergency (ER) | payer MEDICARE ==
--- NOTE | 2019-02-04 15:00 | RAD ---
XR Hand Lt 3 View STANDARD HISTORY: Fall with hand pain COMPARISON: None. FINDINGS: The bones are very demineralized. There are arthritic changes of the hand and wrist. There are no signs of fracture. IMPRESSION: No evidence of fracture.
--- NOTE | 2019-02-04 15:18 | RAD ---
LEFT ELBOW FOUR VIEWS: HISTORY: Fall with elbow pain. COMPARISON: None. FINDINGS: Four views of the left elbow show the patient to be status post ORIF of the distal aspect of the femu r with plates and screws. No acute fracture or dislocation is seen. Surrounding soft tissue swellin g is seen. Mild degenerative changes are seen in the elbow joint. IMPRESSION: No evidence of acute osseous abnormality. POS: C
--- NOTE | 2019-02-04 15:19 | RAD ---
LEFT HIP TWO VIEWS: HISTORY: Fall with left hip pain. COMPARISON: 02/04/2019 FINDINGS: Two views of the left hip show no evidence of acute fracture or dislocation. Mild degenerative petty es are seen in the left hip joint. IMPRESSION: No evidence of acute osseous abnormality. POS: C
--- NOTE | 2019-02-04 15:20 | RAD ---
SINGLE VIEW PELVIS: HISTORY: Fall with left hip pain. COMPARISON: None. FINDINGS: A single view of the pelvis shows no evidence of acute fracture or dislocation. Mild degenerative ch anges are seen in both hips. Hardware is seen in the lumbar spine. IMPRESSION: No evidence of acute osseous abnormality. POS: C
--- NOTE | 2019-02-04 15:24 | RAD ---
LEFT KNEE FOUR VIEWS: HISTORY: Fall with left knee pain. COMPARISON: None. FINDINGS: Four views of the left knee show no evidence of acute fracture or dislocation. Mild soft tissue swel ling is seen. No knee effusion is seen. Mild degenerative changes are present. IMPRESSION: No evidence of acute osseous abnormality. POS: C
== END 2019-02-04 16:14 | disposition home or self-care (01) ==
LOC: ERS 13:49
DX: S70.02XA Contusion of left hip, initial encounter (principal); S50.02XA Contusion of left elbow, initial encounter; J44.9 Chronic obstructive pulmonary disease, unspecified; I48.91 Unspecified atrial fibrillation; E03.9 Hypothyroidism, unspecified; F41.9 Anxiety disorder, unspecified; Z79.899 Other long term (current) drug therapy; W18.30XA Fall on same level, unspecified, initial encounter
CPT/HCPCS: 72170; 99283

== ENCOUNTER 2019-05-10 07:01 | Outpatient (CLI) | payer MEDICARE ==
[2019-05-10 09:33] LABS: #Lymphocytes 1.3 thou/uL (1.20-3.40); #Monocytes 0.8 thou/uL (0.11-0.59); #Neutrophils 3.4 thou/uL (1.40-6.50); %Basophils 0.5 % (0.0-1.0); %Eosinophils 0.7 % (0.0-10.0); %Neutrophils 61.9 % (42.0-75.0); Hemoglobin 12.5 g/dL (12.0-16.0); Mean Corpuscular HGB CONC 33.8 g/dL (32.0-36.0); Mean Corpuscular Hemoglobin 33.2 pg (27.0-31.0); Mean Platelet Volume 7.2 fL (7.4-10.4); Platelet Count 253 thou/uL (130-400); RBC Distribution Width 12.3 % (11.5-14.5); Red Blood Cell (RBC) Count 3.76 mill/uL (4.20-5.40); White Blood Cell (WBC) Count 5.5 thou/uL (4.8-10.8)
[2019-05-10 09:40] LABS: INR-International Normal Ratio 1.1; Prothrombin Time 14.6 SEC (12.0-14.7)
[2019-05-10 09:53] LABS: Anion Gap 15 mmol/L (10-20); BUN (Urea Nitrogen) 11 mg/dL (9.8-20.1); Calc. Creatinine Clearance 0 mL/min (70-130); Calcium 9.2 mg/dL (7.8-10.44); Carbon Dioxide 27 mmol/L (23-31); Chloride 97 mmol/L (98-107); Estimated GFR-MDRD 78; Glucose 96 mg/dL (83-110); Potassium 4.6 mmol/L (3.5-5.1); Sodium 134 mmol/L (136-145)
--- NOTE | 2019-05-10 12:44 | RAD ---
EXAM: Chest PA and lateral: HISTORY: Operative exam. COMPARISON: To 01/04/2019 FINDINGS: Heart: Cardiomegaly Aorta: Atherosclerosis Pulmonary vessels: Normal Costophrenic angles: Costophrenic angles are clear. Lungs: Persistent elevation of the right hemidiaphragm, likely due to a scar or atelectasis. Chronic changes of the lung parenchyma, without focal consolidation or mass. Pneumothorax: No pneumothorax Osseous structures: Previous vertebral plasty change. IMPRESSION: 1. Atherosclerosis. 2. Chronic changes of the right lung base.
== END 2019-05-10 07:02 | disposition home or self-care (01) ==
LOC: LABBT 07:01
PROVIDERS: ATTEND Orthopaedic Surgery
DX: Z01.818 Encounter for other preprocedural examination (principal); S83.102D Unspecified subluxation of left knee, subsequent encounter; M17.12 Unilateral primary osteoarthritis, left knee
CPT/HCPCS: 71046; 80048; 85025; 85610; 87081; 93005; 93010

== ENCOUNTER 2019-05-22 05:16 | Day surgery (SDC) | payer MEDICARE ==
[2019-05-22] MEDS ORDERED: Sodium Chloride 0.9% 100 ML ONE (06:15)
[2019-05-22] MEDS ORDERED: Tranexamic Acid 1,000 MG/10 ML VIAL ONE (06:15)
[2019-05-22] MEDS ORDERED: Fentanyl 100 MCG/2 ML VIAL ONE ×2 (06:28→08:50)
[2019-05-22] MEDS ORDERED: Midazolam HCl 2 mg/2 ml Vial ONE (06:28)
[2019-05-22] MEDS ORDERED: Acetaminophen 325 MG TAB PO PRN (06:43)
[2019-05-22] MEDS ORDERED: Ondansetron PF 4 MG/2 ML Vial IVP PRN (06:43)
[2019-05-22] MEDS ORDERED: diphenhydrAMINE 25 MG CAP PO PRN (06:43)
[2019-05-22] MEDS ORDERED: Fentanyl 100 MCG/2 ML VIAL SLOW IVP PRN (06:43)
[2019-05-22] MEDS ORDERED: HYDROcodone/Acetaminophen 10/325 mg Tablet PO PRN ×2 (06:43)
[2019-05-22] MEDS ORDERED: Promethazine HCl 25 MG/ML VIAL IM PRN ×3 (06:43→07:56)
[2019-05-22] MEDS ORDERED: Zolpidem Tartrate 5 MG TAB PO PRN ×2 (06:43→07:05)
[2019-05-22] MEDS ORDERED: Ropivacaine HCl/PF 250 ML in Premix Bag 1 BAG NERVE BLCK SCH (07:05)
[2019-05-22] MEDS ORDERED: traMADol HCl 50 MG TAB PO PRN (07:05)
[2019-05-22] MEDS ORDERED: Fentanyl 100 MCG/2 ML VIAL IV PRN (07:06)
[2019-05-22] MEDS ORDERED: Ondansetron HCl/PF 4 MG/2 ML Vial IVP PRN (07:56)
[2019-05-22] MEDS ORDERED: Promethazine HCl 25 MG/ML VIAL SLOW IVP PRN (07:56)
[2019-05-22] MEDS ORDERED: Non-Formulary Item 1 EACH (Esomeprazole Magnesium [Nexium] 40 MG) PO SCH (08:00)
[2019-05-22] MEDS ORDERED: Labetalol HCl 100 MG/20 ML VIAL ONE (08:47)
[2019-05-22] MEDS ORDERED: VITAMIN D3 PO SCH (09:00)
[2019-05-22] MEDS ORDERED: DULoxetine 60 MG CAP PO SCH (09:00)
[2019-05-22] MEDS ORDERED: [UNRECOGNIZED DRUG - OTHER] PO SCH (09:00)
[2019-05-22] MEDS ORDERED: ALPRAZolam 0.25 MG TAB PO SCH (09:00)
[2019-05-22] MEDS ORDERED: Non-Formulary Item 1 EACH (Cholecalciferol (Vitamin D3) [Vitamin D3] 25 MCG) PO SCH (09:00)
[2019-05-22] MEDS ORDERED: Non-Formulary Item 1 EACH (Thiamine Hcl [Vitamin B-1] 100 MG) PO SCH (09:00)
[2019-05-22] MEDS ORDERED: Gabapentin 100 MG CAP PO SCH (09:00)
[2019-05-22] MEDS ORDERED: Non-Formulary Item 1 EACH (Cyanocobalamin (Vitamin B-12) [Vitamin B-12] 2,000 MCG) PO SCH (09:00)
[2019-05-22] MEDS ORDERED: Non-Formulary Item 1 EACH (Folic Acid [Folic Acid] 0.8 MG) PO SCH (09:00)
--- NOTE | 2019-05-22 09:18 | RAD ---
XR Knee Lt 2 View HISTORY: Postop COMPARISON: None. FINDINGS: A total knee prosthesis is in good position, no signs of fracture. IMPRESSION: Placement of a total knee prosthesis which is in good position.
[2019-05-22 11:25] VITALS: BMI 27.4
[2019-05-22] MEDS: Senokot S 8.6-50 MG TAB PO SCH ×2 (11:34→20:40)
[2019-05-22] MEDS: Gabapentin 100 MG CAP PO SCH ×3 (11:35→20:20)
[2019-05-22] MEDS: Levothyroxine Sodium 50 MCG TAB PO SCH (11:35)
[2019-05-22] MEDS: Multivitamin W/ Minerals 1 TAB PO SCH (11:35)
[2019-05-22] MEDS: Losartan 25 MG TAB PO SCH (11:35)
[2019-05-22] MEDS: Folic Acid 1 MG TAB PO SCH (11:35)
[2019-05-22] MEDS: Thiamine 100 MG TAB PO SCH (11:35)
[2019-05-22] MEDS: Ferrous Gluconate 324 MG TAB PO SCH ×2 (11:36→20:40)
[2019-05-22] MEDS: Digoxin 0.125 MG TAB PO SCH (11:36)
[2019-05-22] MEDS: DULoxetine 60 MG CAP PO SCH (11:36)
[2019-05-22] MEDS: Cyanocobalamin (Vitamin B-12) 1,000 MCG TAB PO SCH (11:36)
[2019-05-22] MEDS: Aspirin 81 mg Enteric Coated Tablet PO SCH ×2 (11:36→20:20)
[2019-05-22] MEDS: Sodium Chloride 0.9% 1,000 ML IV SCH ×2 (11:37→14:16)
[2019-05-22] MEDS: ALPRAZolam 0.5 MG TAB PO SCH ×2 (11:37→20:20)
[2019-05-22] MEDS: Furosemide 40 MG TAB PO SCH (11:37)
[2019-05-22] MEDS ORDERED: PROPOFOL 200 MG/20 ML VIAL ONE (12:00)
[2019-05-22] MEDS ORDERED: Lidocaine 1% PF 5 ML VIAL ONE (12:00)
[2019-05-22] MEDS ORDERED: Ondansetron PF 4 MG/2 ML Vial ONE (12:00)
[2019-05-22] MEDS ORDERED: Bupivacaine HCl 0.5%/Epinephrine 1:200,000/PF 30 ml Vial ONE (12:00)
[2019-05-22] MEDS ORDERED: Ropivacaine 0.2% HCl/PF (40 MG/20 ML VIAL) ONE (12:00)
--- NOTE | 2019-05-22 12:09 | OP ---
DATE OF PROCEDURE: 05/22/2019 PREOPERATIVE DIAGNOSES: Degenerative joint disease and instability of the left knee. POSTOPERATIVE DIAGNOSES: Degenerative joint disease and instability of the left knee. PROCEDURE PERFORMED: Left total knee arthroplasty using [place] triathlon 3 femur, 3 tibia, 9 mm CS X3 polyethylene and A27 patella. THREAD CUTTER TENDER: Ravinder Root PA-C BLOOD LOSS: Minimal. SPECIMEN: None. DRAIN: None. COMPLICATION: None. PROCEDURE IN DETAIL: After informed consent was obtained in the preoperative holding area, the patient was taken to the operative suite where general anesthesia was induced. Once adequate level of general anesthesia was obtained, the patient was positioned and a well-padded tourniquet was placed around the left proximal thigh. The left lower extremity was then prepped and draped in the usual sterile fashion. Prior to exsanguination, a time-out was called and all members of the surgical team agreed upon site, surgeon, and patient. The extremity was then exsanguinated and the tourniquet was raised. A midline longitudinal incision was then made directly over the patella extending 2 fingerbreadths above the superior pole of the patella and 2 fingerbreadths inferior to the inferior patellar pole of the patella. Deeper subcutaneous layers were dissected sharply and local bleeding was controlled with Bovie electrocautery. A quad tendon longitudinal split was then made sharply and a median parapatellar arthrotomy was carried out both sharp and with Bovie electrocautery, carried down to 1 fingerbreadth medial to the tibial tubercle. The knee was then placed into flexion and the patella was everted nicely, and a copious fat pad ectomy was performed allowing for greater exposure of the tibia. The computer-assisted distal femoral fiducial was then placed and pinned firmly, and the distal femoral cutting guide was pinned firmly into place. The oscillating saw was then used to remove the appropriate amount of bone. The 4-in-1 cutting block was then placed on the distal femur and the oscillating saw was used to remove the appropriate amount of bone off the anterior, posterior, and chamfer cuts. After completion of bone cuts, the anterior cruciate ligament was resected sharply and the posterior cruciate ligament retractor was placed and the tibia was subluxed for better exposure. Partial meniscectomies were carried out, and the tibial computer-assisted fiducial was pinned, and the cutting guide was placed. Oscillating saw was then used to remove the bone, with Hohmann retractors used to take care and protect the collateral ligaments. After the tibial resection was performed, a laminar financial brokers was placed in between the freshened bone cuts. The knee placed at 90 degrees and further bilateral meniscectomies were carried out, and the curved osteotome and curettage were used to remove any excess bone spurs in the posterior compartment. The trial femoral component, tibial baseplate were placed with the appropriate polyethylene trial insert with an appropriate polyethylene spacer and patellar button. The knee was taken through full range of motion with flexion and extension from 0 to 90 degrees and patellar broach squarely in the trochlea without any squinting or subluxation noted. The knee was also stable to varus and valgus stressing at 0, 15, 45, and 90 degrees of flexion. The drawer was negative. All trial components were then removed and the keel punch was used to provide the appropriate defect in the tibia with a mallet. The freshened bone cuts were copiously irrigated with pulsatile lavage of about 1.5 L to remove all excess debris. The freshened bone cuts were then dried with suction and lap sponge. The knee was placed in flexion and retractors were placed to provide access to all bone cuts. Tobramycin-impregnated methyl methacrylate cement was then placed on the freshened bone cuts and implants which were malleted firmly into place. Curettage and [place] elevators were used to remove any excess bone cement. The knee was placed into full extension and the patellar button was placed under compression, and the cement was allowed to cure. Once completed, the components were again taken through full range of motion and copious irrigation of the knee was carried out with another liter of normal saline. All components were inspected fully with full range of motion and varus and valgus stressing. There was no laxity noted and full extension was observed clinically. Primary closure was accomplished with #2 interrupted Vicryl stitch of the arthrotomy defect. This was oversewn with a #2 running Quill barbed stitch. The gravitational platelet system was then injected into the arthrotomy prior to closure. The subcutaneous layer was then closed with a running 0 barbed Monocryl stitch and skin closure accomplished with a running subcuticular 3-0 Monocryl barbed Quill stitch and augmented with cement on the skin. Tourniquet was lowered. Good spontaneous return of distal pulses was noted clinically and a sterile dressing was applied to the incision. The procedure was terminated without any complications. The patient was awakened in the operative suite and the patient was taken to the recovery room in stable condition. Job ID: [id number]
[2019-05-22] MEDS: Ketorolac Tromethamine 30 MG/ML VIAL IVP SCH ×3 (12:10→23:30)
--- NOTE | 2019-05-22 13:01 | PDOC.HOSPP ---
- Subjective Encounter Date: 05/22/19 Encounter Time: 11:20 Subjective: awake, is post op responds well to verbal stimuli family at bedside - Objective Vital Signs & Weight: Vital Signs (12 hours) Temp Pulse Resp BP Pulse Ox 05/22/19 11:36 63 05/22/19 10:45 97.0 F L 63 16 150/77 H 98 Weight Weight 170 lb Hospitalist ROS - Medication Medications: Active Medications Generic Name Dose Route Start Last Admin Trade Name Freleta PRN Reason Stop Dose Admin Alprazolam 0.5 mg 05/22/19 09:00 05/22/19 11:37 Xanax PO Not Given BID [facility] Aspirin 81 mg 05/22/19 09:00 05/22/19 11:36 Ecotrin PO Not Given BID [facility] Cyanocobalamin 2,000 mcg 05/22/19 09:00 05/22/19 11:36 Vitamin B-12 PO Not Given DAILY [facility] Digoxin 0.125 mg 05/22/19 09:00 05/22/19 11:36 Lanoxin PO Not Given DAILY [facility] Duloxetine HCl 60 mg 05/22/19 09:00 05/22/19 11:36 Cymbalta PO Not Given DAILY [facility] Ferrous Gluconate 324 mg 05/22/19 09:00 05/22/19 11:36 Fergon PO Not Given BID [facility] Folic Acid 1 mg 05/22/19 09:00 05/22/19 11:35 Folvite PO Not Given DAILY [facility] Furosemide 40 mg 05/22/19 07:30 05/22/19 11:37 Lasix PO Not Given DAILY[facility] Gabapentin 100 mg 05/22/19 09:00 05/22/19 11:35 Neurontin PO Not Given TID [facility] Sodium Chloride 1,000 mls @ 100 mls/hr 05/22/19 06:45 05/22/19 11:37 Normal Saline 0.9% IV Not Given .Q10H [facility] Iron/Minerals/Multivitamins 1 tab 05/22/19 09:00 05/22/19 11:35 Theragran M PO Not Given DAILY [facility] Ketorolac Tromethamine 15 mg 05/22/19 12:00 05/22/19 12:10 Toradol IVP 05/24/19 06:01 15 mg Q6HR [facility] Administration Levothyroxine Sodium 50 mcg 05/22/19 09:00 05/22/19 11:35 Synthroid PO Not Given DAILY JARROD Losartan Potassium 50 mg 05/22/19 09:00 05/22/19 11:35 Cozaar PO Not Given DAILY [facility] Pantoprazole Sodium 40 mg 05/22/19 08:00 05/22/19 11:37 Protonix PO Not Given QAM-WM JARROD Senna/Docusate Sodium 2 tab 05/22/19 09:00 05/22/19 11:34 Senokot S PO Not Given BID JARROD Thiamine HCl 100 mg 05/22/19 09:00 05/22/19 11:35 Thiamine PO Not Given DAILY JARROD - Exam General Appearance: awake alert Eye: PERRL, anicteric sclera ENT: no oropharyngeal lesions, moist mucosa Neck: supple, no JVD Heart: RRR, no murmur Respiratory: no wheezes, no rales Gastrointestinal: soft, non-tender, non-distended, normal bowel sounds Extremities: no cyanosis, no edema Extremities - other findings: left knee in dressing Neurological: cranial nerve grossly intact, no focal deficits Psychiatric: normal affect Hosp A/P (1) Status post total knee replacement, left Code(s): Z96.652 - PRESENCE OF LEFT ARTIFICIAL KNEE JOINT Status: Acute (2) Anxiety and depression Code(s): F41.8 - OTHER SPECIFIED ANXIETY DISORDERS Status: Chronic (3) Atrial fibrillation Code(s): I48.91 - UNSPECIFIED ATRIAL FIBRILLATION Status: Chronic Qualifiers: Atrial fibrillation type: paroxysmal Qualified Code(s): I48.0 - Paroxysmal atrial fibrillation (4) GERD (gastroesophageal reflux disease) Code(s): K21.9 - GASTRO-ESOPHAGEAL REFLUX DISEASE WITHOUT ESOPHAGITIS Status: Chronic Qualifiers: Esophagitis presence: esophagitis presence not specified Qualified Code(s) : K21.9 - Gastro-esophageal reflux disease without esophagitis (5) HTN (hypertension) Code(s): I10 - ESSENTIAL (PRIMARY) HYPERTENSION Status: Chronic Qualifiers: Hypertension type: essential hypertension Qualified Code(s): I10 - Essential (primary) hypertension (6) Hypothyroidism Code(s): E03.9 - HYPOTHYROIDISM, UNSPECIFIED Status: Chronic Qualifiers: Hypothyroidism type: unspecified Qualified Code(s): E03.9 - Hypothyroidism , unspecified - Plan continue asp bid, cozaar, synthroid, gabapentin, cymbalta and digoxin, off lasix gentle iv hydration, fentanyl, ropivacaine nr block, toradol, norco prn PT/OT to mobilize per ortho adv hemostable will f/u
[2019-05-22] MEDS ORDERED: Ketorolac Tromethamine 30 MG/ML VIAL IVP SCH (14:00)
[2019-05-22] MEDS: CEFAZOLIN 2 GM in Premix Bag 1 BAG IVPB SCH ×2 (14:15→21:37)
[2019-05-22] MEDS: HYDROcodone/Acetaminophen 7.5/325 mg Tablet PO PRN (15:27)
[2019-05-23] MEDS: Sodium Chloride 0.9% 1,000 ML IV SCH ×2 (02:49→12:46)
[2019-05-23 04:26] LABS: Hemoglobin 10.9 g/dL (12.0-16.0); Mean Corpuscular HGB CONC 34.5 g/dL (32.0-36.0); Mean Corpuscular Hemoglobin 34.4 pg (27.0-31.0); Mean Corpuscular Volume 99.6 fL (78.0-98.0); Mean Platelet Volume 6.8 fL (7.4-10.4); Platelet Count 205 thou/uL (130-400); RBC Distribution Width 11.7 % (11.5-14.5); Red Blood Cell (RBC) Count 3.16 mill/uL (4.20-5.40); White Blood Cell (WBC) Count 7.7 thou/uL (4.8-10.8)
[2019-05-23] MEDS: Ketorolac Tromethamine 30 MG/ML VIAL IVP SCH ×4 (06:06→23:45)
[2019-05-23] MEDS: traMADol HCl 50 MG TAB PO PRN (06:12)
[2019-05-23] MEDS: Furosemide 40 MG TAB PO SCH (06:13)
[2019-05-23] MEDS: Ondansetron PF 4 MG/2 ML Vial IVP PRN ×2 (08:36→14:51)
[2019-05-23] MEDS: Cyanocobalamin (Vitamin B-12) 1,000 MCG TAB PO SCH (08:41)
[2019-05-23] MEDS: Senokot S 8.6-50 MG TAB PO SCH ×2 (08:41→21:08)
[2019-05-23] MEDS: Losartan 25 MG TAB PO SCH (08:41)
[2019-05-23] MEDS: ALPRAZolam 0.5 MG TAB PO SCH ×2 (08:41→21:06)
[2019-05-23] MEDS: Ferrous Gluconate 324 MG TAB PO SCH ×2 (08:42→21:08)
[2019-05-23] MEDS: Multivitamin W/ Minerals 1 TAB PO SCH (08:42)
[2019-05-23] MEDS: Digoxin 0.125 MG TAB PO SCH (08:42)
[2019-05-23] MEDS: DULoxetine 60 MG CAP PO SCH (08:42)
[2019-05-23] MEDS: Levothyroxine Sodium 50 MCG TAB PO SCH (08:43)
[2019-05-23] MEDS: Aspirin 81 mg Enteric Coated Tablet PO SCH ×2 (08:43→21:07)
[2019-05-23] MEDS: Gabapentin 100 MG CAP PO SCH ×3 (08:43→21:06)
[2019-05-23] MEDS: Thiamine 100 MG TAB PO SCH (08:44)
[2019-05-23] MEDS: Folic Acid 1 MG TAB PO SCH (08:44)
[2019-05-23] MEDS: HYDROcodone/Acetaminophen 7.5/325 mg Tablet PO PRN (09:54)
--- NOTE | 2019-05-23 10:11 | PRG ---
DATE OF SERVICE: 05/23/2019 SUBJECTIVE: Pam is an 83-year-old female who is postop day #1 from a left total knee arthroplasty. She is doing relatively well. She has a very little in the way of complaints. She is alert, responsive, and eating breakfast. OBJECTIVE: VITAL SIGNS: Temperature 98.1, pulse 90, respiratory rate 16 and nonlabored, and blood pressure 131/69. GENERAL: She is alert. She is responsive and appropriate. Grossly nonfocal. EXTREMITIES: Incision is clean. No strike through. No erythema. No malrotation or shortening. LABORATORY DATA: Hemoglobin and hematocrit 10.9 and 31.5. IMPRESSION: An 83-year-old female with postop day #1, left total knee arthroplasty. PLAN: Initiate physical therapy. Re-evaluate later today and tomorrow. Consider skilled placement versus home discharge. Job ID: [id number]
[2019-05-23 13:31] LABS: Anion Gap 14 mmol/L (10-20); BUN (Urea Nitrogen) 14 mg/dL (9.8-20.1); Calc. Creatinine Clearance 65 mL/min (70-130); Calcium 8.2 mg/dL (7.8-10.44); Carbon Dioxide 23 mmol/L (23-31); Chloride 97 mmol/L (98-107); Estimated GFR-MDRD 66; Glucose 153 mg/dL (83-110); Sodium 130 mmol/L (136-145)
--- NOTE | 2019-05-23 13:38 | PDOC.HOSPP ---
- Subjective Encounter Date: 05/23/19 Encounter Time: 10:37 Subjective: 83 y/o female with GERD, A fib, HTN and DJD admitted for left TKR. patient 1 day post op. Complaining of abdominal discomfort and frequent loose stools after breakfast this morning. No nausea or vomiting. - Objective Vital Signs & Weight: Vital Signs (12 hours) Temp Pulse Resp BP Pulse Ox 05/23/19 12:40 97.8 F 91 16 127/77 95 05/23/19 08:42 90 05/23/19 08:17 98.1 F 96 16 131/69 96 Weight Admit Weight 170 lb Weight 170 lb I&O: 05/22/19 05/23/19 05/24/19 06:59 06:59 06:59 Intake Total 237 740 Output Total 675 650 Balance -438 90 Result Diagrams: 05/23/19 04:13 05/23/19 12:53 Hospitalist ROS - Medication Medications: Active Medications Generic Name Dose Route Start Last Admin Trade Name Freq PRN Reason Stop Dose Admin Hydrocodone Bitart/Acetaminophen 1 tab 05/22/19 07:06 05/22/19 15:27 [place] 7.5/325 PO 1 tab Q4H PRN Administration Mild Pain (1-3) Hydrocodone Bitart/Acetaminophen 2 tab 05/22/19 07:07 05/23/19 09:54 [place] 7.5/325 PO 2 tab Q4H PRN Administration Moderate Pain (4-6) Alprazolam 0.5 mg 05/22/19 09:00 05/23/19 08:41 Xanax PO 0.5 mg BID JARROD Administration Aspirin 81 mg 05/22/19 09:00 05/23/19 08:43 Ecotrin PO 81 mg BID JARROD Administration Cyanocobalamin 2,000 mcg 05/22/19 09:00 05/23/19 08:41 Vitamin B-12 PO 2,000 mcg DAILY JARROD Administration Digoxin 0.125 mg 05/22/19 09:00 05/23/19 08:42 Lanoxin PO 0.125 mg DAILY JARROD Administration Diphenhydramine HCl 25 mg 05/22/19 06:43 05/22/19 20:38 Benadryl PO 25 mg Q6H PRN Administration Itching Duloxetine HCl 60 mg 05/22/19 09:00 05/23/19 08:42 Cymbalta PO 60 mg DAILY JARROD Administration Ferrous Gluconate 324 mg 05/22/19 09:00 05/23/19 08:42 Fergon PO 324 mg BID JARROD Administration Folic Acid 1 mg 05/22/19 09:00 05/23/19 08:44 Folvite PO 1 mg DAILY JARROD Administration Gabapentin 100 mg 05/22/19 09:00 05/23/19 08:43 Neurontin PO 100 mg TID JARROD Administration Ropivacaine 250 ml/ Device 250 mls @ 0 mls/hr 05/22/19 07:05 05/23/19 10:40 NERVE BLCK 05/24/19 07:06 250 mls INF JARROD Administration As Directed Iron/Minerals/Multivitamins 1 tab 05/22/19 09:00 05/23/19 08:42 Theragran M PO 1 tab DAILY [facility] Administration Ketorolac Tromethamine 15 mg 05/22/19 12:00 05/23/19 12:41 Toradol IVP 05/24/19 06:01 15 mg Q6HR JARROD Administration Levothyroxine Sodium 50 mcg 05/22/19 09:00 05/23/19 08:43 Synthroid PO 50 mcg DAILY JARROD Administration Losartan Potassium 50 mg 05/22/19 09:00 05/23/19 08:41 Cozaar PO 50 mg DAILY [facility] Administration Ondansetron HCl 4 mg 05/22/19 07:05 05/23/19 08:36 Zofran IVP 4 mg Q6H PRN Administration Nausea/Vomiting Pantoprazole Sodium 40 mg 05/22/19 08:00 05/23/19 08:42 Protonix PO 40 mg QAM-WM JARROD Administration Senna/Docusate Sodium 2 tab 05/22/19 09:00 05/23/19 08:41 Senokot S PO 2 tab BID JARROD Administration Thiamine HCl 100 mg 05/22/19 09:00 05/23/19 08:44 Thiamine PO 100 mg DAILY JARROD Administration Tramadol HCl 100 mg 05/22/19 07:05 05/23/19 06:12 Ultram PO 100 mg Q6H PRN Administration Moderate Pain 4-6 - Exam General Appearance: awake alert Eye: anicteric sclera ENT: normocephalic atraumatic Neck: supple, symmetric Heart: RRR Respiratory: no wheezes, no ronchi, normal chest expansion Gastrointestinal: soft, non-distended, normal bowel sounds Extremities: no cyanosis Extremities - other findings: left knee covered with dressing and brace Neurological: cranial nerve grossly intact, no focal deficits Hosp A/P (1) Acute blood loss as cause of postoperative anemia Code(s): D62 - ACUTE POSTHEMORRHAGIC ANEMIA Status: Acute (2) Hyponatremia Code(s): E87.1 - HYPO-OSMOLALITY AND HYPONATREMIA Status: Acute (3) Anxiety and depression Code(s): F41.8 - OTHER SPECIFIED ANXIETY DISORDERS Status: Chronic (4) Atrial fibrillation Code(s): I48.91 - UNSPECIFIED ATRIAL FIBRILLATION Status: Chronic Qualifiers: Atrial fibrillation type: paroxysmal Qualified Code(s): I48.0 - Paroxysmal atrial fibrillation (5) GERD (gastroesophageal reflux disease) Code(s): K21.9 - GASTRO-ESOPHAGEAL REFLUX DISEASE WITHOUT ESOPHAGITIS Status: Chronic Qualifiers: Esophagitis presence: esophagitis presence not specified Qualified Code(s) : K21.9 - Gastro-esophageal reflux disease without esophagitis (6) HTN (hypertension) Code(s): I10 - ESSENTIAL (PRIMARY) HYPERTENSION Status: Chronic Qualifiers: Hypertension type: essential hypertension Qualified Code(s): I10 - Essential (primary) hypertension (7) Hypothyroidism Code(s): E03.9 - HYPOTHYROIDISM, UNSPECIFIED Status: Chronic Qualifiers: Hypothyroidism type: unspecified Qualified Code(s): E03.9 - Hypothyroidism , unspecified - Plan DC NS given hyponatremia due to suspected SIADH Dc lasix Get urine and plasma osmolality. Monitor patient closely. Get stool analysis if loose stools persists. Continue other treatments. get repaet BMP and CBC in the am.
[2019-05-24 04:55] LABS: Hemoglobin 10.2 g/dL (12.0-16.0); Mean Corpuscular HGB CONC 34.2 g/dL (32.0-36.0); Mean Corpuscular Hemoglobin 34.1 pg (27.0-31.0); Mean Corpuscular Volume 99.7 fL (78.0-98.0); Mean Platelet Volume 7.3 fL (7.4-10.4); Platelet Count 196 thou/uL (130-400); RBC Distribution Width 11.7 % (11.5-14.5); Red Blood Cell (RBC) Count 2.98 mill/uL (4.20-5.40); White Blood Cell (WBC) Count 9.2 thou/uL (4.8-10.8)
[2019-05-24 05:13] LABS: Anion Gap 13 mmol/L (10-20); BUN (Urea Nitrogen) 11 mg/dL (9.8-20.1); Calc. Creatinine Clearance 87 mL/min (70-130); Calcium 8.2 mg/dL (7.8-10.44); Carbon Dioxide 23 mmol/L (23-31); Chloride 99 mmol/L (98-107); Estimated GFR-MDRD Greater than 90; Glucose 113 mg/dL (83-110); Potassium 3.8 mmol/L (3.5-5.1); Sodium 131 mmol/L (136-145)
[2019-05-24] MEDS: Ketorolac Tromethamine 30 MG/ML VIAL IVP SCH (05:37)
[2019-05-24] MEDS: HYDROcodone/Acetaminophen 7.5/325 mg Tablet PO PRN ×3 (09:01→20:55)
[2019-05-24] MEDS: Senokot S 8.6-50 MG TAB PO SCH ×2 (09:02→20:53)
[2019-05-24] MEDS: ALPRAZolam 0.5 MG TAB PO SCH ×2 (09:02→20:52)
[2019-05-24] MEDS: Folic Acid 1 MG TAB PO SCH (09:02)
[2019-05-24] MEDS: Levothyroxine Sodium 50 MCG TAB PO SCH (09:02)
[2019-05-24] MEDS: Losartan 25 MG TAB PO SCH (09:03)
[2019-05-24] MEDS: Gabapentin 100 MG CAP PO SCH ×3 (09:03→20:49)
[2019-05-24] MEDS: Ferrous Gluconate 324 MG TAB PO SCH ×2 (09:03→20:52)
[2019-05-24] MEDS: DULoxetine 60 MG CAP PO SCH (09:03)
[2019-05-24] MEDS: Cyanocobalamin (Vitamin B-12) 1,000 MCG TAB PO SCH (09:03)
[2019-05-24] MEDS: Multivitamin W/ Minerals 1 TAB PO SCH (09:04)
[2019-05-24] MEDS: Aspirin 81 mg Enteric Coated Tablet PO SCH ×2 (09:04→20:52)
[2019-05-24] MEDS: Thiamine 100 MG TAB PO SCH (09:05)
[2019-05-24] MEDS: Digoxin 0.125 MG TAB PO SCH (09:05)
--- NOTE | 2019-05-24 11:24 | PDOC.HOSPP ---
- Subjective Encounter Date: 05/24/19 Encounter Time: 10:22 Subjective: 83 y/o female with GERD, A fib, HTN and DJD admitted for left TKR. Abdominal discomfort has subsided. No nausea or vomiting. - Objective Vital Signs & Weight: Vital Signs (12 hours) Temp Pulse Resp BP BP Pulse Ox 05/24/19 09:05 84 05/24/19 08:06 97.3 F L 89 16 115/74 96 05/24/19 04:18 98.6 F 96 18 146/82 H 97 05/23/19 23:47 99.3 F 95 18 139/77 94 L Weight Admit Weight 170 lb Weight 170 lb I&O: 05/23/19 05/24/19 05/25/19 06:59 06:59 06:59 Intake Total 237 2900 Output Total 675 3550 Balance -438 -650 Result Diagrams: 05/24/19 04:33 05/24/19 04:33 Hospitalist ROS - Medication Medications: Active Medications Generic Name Dose Route Start Last Admin Trade Name Freq PRN Reason Stop Dose Admin Hydrocodone Bitart/Acetaminophen 1 tab 05/22/19 07:06 05/24/19 09:01 [place] 7.5/325 PO 1 tab Q4H PRN Administration Mild Pain (1-3) Hydrocodone Bitart/Acetaminophen 2 tab 05/22/19 07:07 05/23/19 09:54 [place] 7.5/325 PO 2 tab Q4H PRN Administration Moderate Pain (4-6) Alprazolam 0.5 mg 05/22/19 09:00 05/24/19 09:02 Xanax PO 0.5 mg BID JARROD Administration Aspirin 81 mg 05/22/19 09:00 05/24/19 09:04 Ecotrin PO 81 mg BID JARROD Administration Cyanocobalamin 2,000 mcg 05/22/19 09:00 05/24/19 09:03 Vitamin B-12 PO 2,000 mcg DAILY JARROD Administration Digoxin 0.125 mg 05/22/19 09:00 05/24/19 09:05 Lanoxin PO 0.125 mg DAILY JARROD Administration Diphenhydramine HCl 25 mg 05/22/19 06:43 05/22/19 20:38 Benadryl PO 25 mg Q6H PRN Administration Itching Duloxetine HCl 60 mg 05/22/19 09:00 05/24/19 09:03 Cymbalta PO 60 mg DAILY JARROD Administration Ferrous Gluconate 324 mg 05/22/19 09:00 05/24/19 09:03 Fergon PO 324 mg BID JARROD Administration Folic Acid 1 mg 05/22/19 09:00 05/24/19 09:02 Folvite PO 1 mg DAILY JARROD Administration Gabapentin 100 mg 05/22/19 09:00 05/24/19 09:03 Neurontin PO 100 mg TID JARROD Administration Iron/Minerals/Multivitamins 1 tab 05/22/19 09:00 05/24/19 09:04 Theragran M PO 1 tab DAILY JARROD Administration Levothyroxine Sodium 50 mcg 05/22/19 09:00 05/24/19 09:02 Synthroid PO 50 mcg DAILY JARROD Administration Losartan Potassium 50 mg 05/22/19 09:00 05/24/19 09:03 Cozaar PO 50 mg DAILY JARROD Administration Ondansetron HCl 4 mg 05/22/19 07:05 05/23/19 14:51 Zofran IVP 4 mg Q6H PRN Administration Nausea/Vomiting Pantoprazole Sodium 40 mg 05/22/19 08:00 05/24/19 09:02 Protonix PO 40 mg QAM-WM JARROD Administration Senna/Docusate Sodium 2 tab 05/22/19 09:00 05/24/19 09:02 Senokot S PO 2 tab BID JARROD Administration Sodium Chloride 10 ml 05/22/19 06:43 05/23/19 21:09 Flush - Normal Saline IVF 10 ml PRN PRN Administration Saline Flush Thiamine HCl 100 mg 05/22/19 09:00 05/24/19 09:05 Thiamine PO 100 mg DAILY JARROD Administration Tramadol HCl 100 mg 05/22/19 07:05 05/23/19 06:12 Ultram PO 100 mg Q6H PRN Administration Moderate Pain 4-6 - Exam General Appearance: awake alert Eye: anicteric sclera ENT: normocephalic atraumatic Neck: supple Heart: irregular Respiratory: no wheezes, no rales, no ronchi, normal chest expansion Gastrointestinal: soft, non-tender, non-distended, normal bowel sounds Extremities: no cyanosis, no edema Extremities - other findings: left knee covered with dressing and brace Neurological: cranial nerve grossly intact, no focal deficits Psychiatric: normal affect, A&O x 3 Hosp A/P (1) Hyponatremia Code(s): E87.1 - HYPO-OSMOLALITY AND HYPONATREMIA Status: Acute (2) Acute blood loss as cause of postoperative anemia Code(s): D62 - ACUTE POSTHEMORRHAGIC ANEMIA Status: Acute (3) Anxiety and depression Code(s): F41.8 - OTHER SPECIFIED ANXIETY DISORDERS Status: Chronic (4) Atrial fibrillation Code(s): I48.91 - UNSPECIFIED ATRIAL FIBRILLATION Status: Chronic Qualifiers: Atrial fibrillation type: paroxysmal Qualified Code(s): I48.0 - Paroxysmal atrial fibrillation (5) GERD (gastroesophageal reflux disease) Code(s): K21.9 - GASTRO-ESOPHAGEAL REFLUX DISEASE WITHOUT ESOPHAGITIS Status: Chronic Qualifiers: Esophagitis presence: esophagitis presence not specified Qualified Code(s) : K21.9 - Gastro-esophageal reflux disease without esophagitis (6) HTN (hypertension) Code(s): I10 - ESSENTIAL (PRIMARY) HYPERTENSION Status: Chronic Qualifiers: Hypertension type: essential hypertension Qualified Code(s): I10 - Essential (primary) hypertension (7) Hypothyroidism Code(s): E03.9 - HYPOTHYROIDISM, UNSPECIFIED Status: Chronic Qualifiers: Hypothyroidism type: unspecified Qualified Code(s): E03.9 - Hypothyroidism , unspecified (8) SIADH (syndrome of inappropriate ADH production) Status: Acute - Plan Start fluid restriction to 1500 daily Continue other treatments. Get repaet BMP and CBC in the am. Continue other treatments
[2019-05-24] MEDS ORDERED: Ropivacaine HCl/PF 250 ML in Premix Bag 1 BAG NERVE BLCK SCH (13:15)
[2019-05-25] MEDS: HYDROcodone/Acetaminophen 7.5/325 mg Tablet PO PRN ×2 (04:29→11:38)
[2019-05-25 05:26] LABS: Mean Corpuscular HGB CONC 33.9 g/dL (32.0-36.0); Mean Corpuscular Hemoglobin 34.5 pg (27.0-31.0); Mean Platelet Volume 7.1 fL (7.4-10.4); Platelet Count 193 thou/uL (130-400); RBC Distribution Width 11.6 % (11.5-14.5); Red Blood Cell (RBC) Count 2.62 mill/uL (4.20-5.40); White Blood Cell (WBC) Count 5.9 thou/uL (4.8-10.8)
[2019-05-25] MEDS ORDERED: Dabigatran 150 mg Capsule PO SCH (09:00)
[2019-05-25 09:22] LABS: Anion Gap 11 mmol/L (10-20); BUN (Urea Nitrogen) 9 mg/dL (9.8-20.1); Calc. Creatinine Clearance 88 mL/min (70-130); Calcium 8.7 mg/dL (7.8-10.44); Carbon Dioxide 27 mmol/L (23-31); Chloride 104 mmol/L (98-107); Estimated GFR-MDRD Greater than 90; Glucose 110 mg/dL (83-110); Potassium 3.9 mmol/L (3.5-5.1); Sodium 138 mmol/L (136-145)
[2019-05-25] MEDS: Gabapentin 100 MG CAP PO SCH ×2 (09:28→14:36)
[2019-05-25] MEDS: Levothyroxine Sodium 50 MCG TAB PO SCH (09:28)
[2019-05-25] MEDS: Multivitamin W/ Minerals 1 TAB PO SCH (09:28)
[2019-05-25] MEDS: Losartan 25 MG TAB PO SCH (09:29)
[2019-05-25] MEDS: Cyanocobalamin (Vitamin B-12) 1,000 MCG TAB PO SCH (09:29)
[2019-05-25] MEDS: Thiamine 100 MG TAB PO SCH (09:30)
[2019-05-25] MEDS: Senokot S 8.6-50 MG TAB PO SCH (09:30)
[2019-05-25] MEDS: Ferrous Gluconate 324 MG TAB PO SCH (09:30)
[2019-05-25] MEDS: Folic Acid 1 MG TAB PO SCH (09:31)
[2019-05-25] MEDS: DULoxetine 60 MG CAP PO SCH (09:31)
[2019-05-25] MEDS: Aspirin 81 mg Enteric Coated Tablet PO SCH (09:31)
[2019-05-25] MEDS: Digoxin 0.125 MG TAB PO SCH (09:31)
[2019-05-25 11:18] VITALS: BP 140/78; TEMP 97.8
--- NOTE | 2019-05-25 12:00 | PDOC.HOSPP ---
- Subjective Encounter Date: 05/25/19 Encounter Time: 10:59 Subjective: 83 y/o female with GERD, A fib, HTN and DJD admitted for left TKR. Abdominal discomfort has subsided. No nausea or vomiting. - Objective Vital Signs & Weight: Vital Signs (12 hours) Temp Pulse Resp BP BP Pulse Ox 05/25/19 11:14 97.8 F 112 H 16 140/78 94 L 05/25/19 08:03 98.0 F 87 16 113/71 97 05/25/19 04:00 98.2 F 99 18 129/82 95 Weight Admit Weight 170 lb Weight 170 lb I&O: 05/24/19 05/25/19 05/26/19 06:59 06:59 06:59 Intake Total 2900 1160 100 Output Total 3550 Balance -650 1160 100 Result Diagrams: 05/25/19 05:08 05/25/19 08:50 Hospitalist ROS - Medication Medications: Active Medications Generic Name Dose Route Start Last Admin Trade Name Freq PRN Reason Stop Dose Admin Hydrocodone Bitart/Acetaminophen 1 tab 05/22/19 07:06 05/24/19 09:01 [place] 7.5/325 PO 1 tab Q4H PRN Administration Mild Pain (1-3) Hydrocodone Bitart/Acetaminophen 2 tab 05/22/19 07:07 05/25/19 11:38 [place] 7.5/325 PO 2 tab Q4H PRN Administration Moderate Pain (4-6) Alprazolam 0.5 mg 05/22/19 09:00 05/24/19 20:52 Xanax PO 0.5 mg BID JARROD Administration Aspirin 81 mg 05/22/19 09:00 05/25/19 09:31 Ecotrin PO 81 mg BID JARROD Administration Cyanocobalamin 2,000 mcg 05/22/19 09:00 05/25/19 09:29 Vitamin B-12 PO 2,000 mcg DAILY JARROD Administration Dabigatran 150 mg 05/25/19 09:00 05/25/19 09:30 Pradaxa PO 150 mg BID JARROD Administration Digoxin 0.125 mg 05/22/19 09:00 05/25/19 09:31 Lanoxin PO 0.125 mg DAILY JARROD Administration Diphenhydramine HCl 25 mg 05/22/19 06:43 05/22/19 20:38 Benadryl PO 25 mg Q6H PRN Administration Itching Duloxetine HCl 60 mg 05/22/19 09:00 05/25/19 09:31 Cymbalta PO 60 mg DAILY JARROD Administration Ferrous Gluconate 324 mg 05/22/19 09:00 05/25/19 09:30 Fergon PO 324 mg BID JARROD Administration Folic Acid 1 mg 05/22/19 09:00 05/25/19 09:31 Folvite PO 1 mg DAILY JARROD Administration Gabapentin 100 mg 05/22/19 09:00 05/25/19 09:28 Neurontin PO 100 mg TID JARROD Administration Ropivacaine 250 ml/ Device 250 mls @ 10 mls/hr 05/24/19 13:15 05/24/19 14:33 NERVE BLCK 250 mls INF JARROD Administration Iron/Minerals/Multivitamins 1 tab 05/22/19 09:00 05/25/19 09:28 Theragran M PO 1 tab DAILY JARROD Administration Levothyroxine Sodium 50 mcg 05/22/19 09:00 05/25/19 09:28 Synthroid PO 50 mcg DAILY JARROD Administration Losartan Potassium 50 mg 05/22/19 09:00 05/25/19 09:29 Cozaar PO 50 mg DAILY JARROD Administration Ondansetron HCl 4 mg 05/22/19 07:05 05/23/19 14:51 Zofran IVP 4 mg Q6H PRN Administration Nausea/Vomiting Pantoprazole Sodium 40 mg 05/22/19 08:00 05/25/19 09:30 Protonix PO 40 mg QAM-WM JARROD Administration Senna/Docusate Sodium 2 tab 05/22/19 09:00 05/25/19 09:30 Senokot S PO 2 tab BID JARROD Administration Sodium Chloride 10 ml 05/22/19 06:43 05/23/19 21:09 Flush - Normal Saline IVF 10 ml PRN PRN Administration Saline Flush Thiamine HCl 100 mg 05/22/19 09:00 05/25/19 09:30 Thiamine PO 100 mg DAILY JARROD Administration Tramadol HCl 100 mg 05/22/19 07:05 05/23/19 06:12 Ultram PO 100 mg Q6H PRN Administration Moderate Pain 4-6 - Exam General Appearance: awake alert ENT: normocephalic atraumatic Neck: supple Heart: irregular Respiratory: no wheezes, no rales, no ronchi, normal chest expansion Gastrointestinal: soft, non-tender, non-distended, normal bowel sounds Extremities: no cyanosis Extremities - other findings: left lower extremity edema and knee dressing noted Neurological: cranial nerve grossly intact, no focal deficits Psychiatric: A&O x 3 Hosp A/P (1) Hyponatremia Code(s): E87.1 - HYPO-OSMOLALITY AND HYPONATREMIA Status: Acute (2) SIADH (syndrome of inappropriate ADH production) Status: Acute (3) Acute blood loss as cause of postoperative anemia Code(s): D62 - ACUTE POSTHEMORRHAGIC ANEMIA Status: Acute (4) Anxiety and depression Code(s): F41.8 - OTHER SPECIFIED ANXIETY DISORDERS Status: Chronic (5) Atrial fibrillation Code(s): I48.91 - UNSPECIFIED ATRIAL FIBRILLATION Status: Chronic Qualifiers: Atrial fibrillation type: paroxysmal Qualified Code(s): I48.0 - Paroxysmal atrial fibrillation (6) GERD (gastroesophageal reflux disease) Code(s): K21.9 - GASTRO-ESOPHAGEAL REFLUX DISEASE WITHOUT ESOPHAGITIS Status: Chronic Qualifiers: Esophagitis presence: esophagitis presence not specified Qualified Code(s) : K21.9 - Gastro-esophageal reflux disease without esophagitis (7) HTN (hypertension) Code(s): I10 - ESSENTIAL (PRIMARY) HYPERTENSION Status: Chronic Qualifiers: Hypertension type: essential hypertension Qualified Code(s): I10 - Essential (primary) hypertension (8) Hypothyroidism Code(s): E03.9 - HYPOTHYROIDISM, UNSPECIFIED Status: Chronic Qualifiers: Hypothyroidism type: unspecified Qualified Code(s): E03.9 - Hypothyroidism , unspecified (9) Status post total knee replacement, left Code(s): Z96.652 - PRESENCE OF LEFT ARTIFICIAL KNEE JOINT Status: Acute - Plan Continue fluid restriction. Relaxed to 1800. Continue other treatments Can be discharged from medical point of view
[2019-05-25] MEDS: traMADol HCl 50 MG TAB PO PRN (14:35)
[2019-05-25] MEDS: ALPRAZolam 0.5 MG TAB PO SCH (15:53)
--- NOTE | 2019-05-28 10:57 | DIS ---
DATE OF ADMISSION: 05/22/2019 DATE OF DISCHARGE: 05/25/2019 This is Rubi Mccormick PA-C dictating a report for Gurmeet Campuzano MD. CONSULTANTS: Include [facility] as well as [facility]. PREOPERATIVE DIAGNOSIS: Degenerative joint disease and instability of the left knee. POSTOPERATIVE DIAGNOSIS: Degenerative joint disease and instability of the left knee. PROCEDURE PERFORMED: Left total knee arthroplasty using Sol triathlon system. BRIEF HOSPITAL COURSE: This is an 83-year-old female, who was indicated for the above-mentioned procedure after failing conservative measures. She did well in the operative suite and postoperatively she was admitted to [address] she worked with physical and occupational therapist. Her pain was managed by [facility] and her medical comorbidities managed by [facility]. She did have some hyponatremia which was resolved by holding off her IV fluids while she was here. 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 There were no complications incurred during her hospital stay. DISCHARGE DISPOSITION: Inpatient rehabilitation. DISCHARGE CONDITION: Stable. DISCHARGE INSTRUCTIONS: The patient will follow up with Dr. Campuzano as scheduled. She will discharge from inpatient rehabilitation as deemed fit by the physician at the facility. She will keep her surgical wound clean, dry, and intact until followup in our office. DISCHARGE MEDICATIONS: See MAR. Job ID: [id number]
== END 2019-05-25 15:55 ==
LOC: SDC 05:16 → SJJU 06:43 → SDC 05-25 15:55
PROVIDERS: ATTEND Orthopaedic Surgery
PROC: 0SRD0J9 Replacement of Left Knee Joint with Synthetic Substitute, Cemented, Open Approach (ICD-10-PCS; principal; 2019-05-22)
PROC: 8E0YXBZ Computer Assisted Procedure of Lower Extremity (ICD-10-PCS; 2019-05-22)
DX: M17.12 Unilateral primary osteoarthritis, left knee (principal); M23.52 Chronic instability of knee, left knee; F41.8 Other specified anxiety disorders; I48.0 Paroxysmal atrial fibrillation; E03.9 Hypothyroidism, unspecified; I10 Essential (primary) hypertension; K21.9 Gastro-esophageal reflux disease without esophagitis; Z79.899 Other long term (current) drug therapy; Z88.2 Allergy status to sulfonamides; Z88.5 Allergy status to narcotic agent; Z88.8 Allergy status to other drugs, medicaments and biological substances; Z96.651 Presence of right artificial knee joint
CPT/HCPCS: 20985; 27447; 73560; 80048; 83930; 83935; 85027; 94660; 97110 ×4; 97116 ×4; 97139 ×6; 97150 ×2; 97530 ×2; 97535; 98961; C1713; C1776; 36415; J0670; J0690; J1885; J2001; J2250; J2405; J2704; J2795; J3010; J3370; J3490; Q0163

== ENCOUNTER 2019-06-07 13:34 | Outpatient (CLI) | payer MEDICARE ==
--- NOTE | 2019-06-07 14:04 | ULT ---
LEFT LOWER EXTREMITY VENOUS DOPPLER ULTRASOUND: HISTORY: Status post left total knee arthroplasty. Edema. COMPARISON: None. TECHNIQUE: Eric-scale, color-flow, Doppler imaging and spectral wave-form analysis was performed in the left low er extremity venous system. FINDINGS: There is compressibility, presence of flow and augmentation in the common femoral vein, femoral vein and popliteal vein. There is flow in the posterior tibial vein, greater cells vein and profunda femoral vein. There is increased echogenicity of the lateral aspect of the calf which may represent soft tissue mary ma. A well-defined hematoma is difficult to appreciate. Continued imaging if clinically warranted. IMPRESSION: No evidence of thrombus in the left lower extremity deep venous system Results of study discussed with Cortney Campuzano's nurse, on 06/07/2019 at 2:04 PM CODE CR Transcribed Date/Time: 06/07/2019 2:18 PM
== END 2019-06-07 13:35 | disposition home or self-care (01) ==
LOC: ULT 13:34
PROVIDERS: ATTEND Orthopaedic Surgery
DX: R60.0 Localized edema (principal); Z98.890 Other specified postprocedural states

== ENCOUNTER 2019-06-21 11:36 | Emergency (ER) | payer MEDICARE ==
--- NOTE | 2019-06-21 12:45 | RAD ---
Right lower leg 2 views HISTORY: Right leg injury. FINDINGS: Tibia and fibula are intact. Right knee prosthesis in place. No acute fracture, dislocation , or aggressive osseous erosions. IMPRESSION: No acute osseous abnormalities are demonstrated.
--- NOTE | 2019-06-21 12:45 | RAD ---
Right knee 4 views HISTORY: Fall. Right knee injury. FINDINGS: Total knee prosthesis in place. No promise-hardware lucency. No acute fracture, dislocation, o r fluid distention of the suprapatellar bursa. Calcification over the arterial structures. IMPRESSION: Prosthesis in place. No acute osseous abnormalities are demonstrated. Atherosclerosis.
== END 2019-06-21 13:25 | disposition home or self-care (01) ==
LOC: ERS 11:36
DX: S00.83XA Contusion of other part of head, initial encounter (principal); S80.11XA Contusion of right lower leg, initial encounter; I50.9 Heart failure, unspecified; J44.9 Chronic obstructive pulmonary disease, unspecified; I49.9 Cardiac arrhythmia, unspecified; I48.91 Unspecified atrial fibrillation; E03.9 Hypothyroidism, unspecified; E66.9 Obesity, unspecified; K21.9 Gastro-esophageal reflux disease without esophagitis; F41.9 Anxiety disorder, unspecified; Z87.891 Personal history of nicotine dependence; Z79.899 Other long term (current) drug therapy; Z79.891 Long term (current) use of opiate analgesic; W18.30XA Fall on same level, unspecified, initial encounter

== ENCOUNTER 2019-07-31 21:39 | Emergency (ER) | payer MEDICARE ==
--- NOTE | 2019-07-31 23:25 | RAD ---
Left RIBS 4 views Chest one view HISTORY: Fall. Chest wall injury. FINDINGS: Mildly displaced fractures involve the lateral aspect of left ribs 4 through 10. No evidence of pneumothorax. Lungs are hyperinflated. Cardiac silhouette slightly enlarged. Pulmonary vasculature upper limits of normal. Calcification in the aorta. Vertebroplasty cement at the L1 level. IMPRESSION: Left lateral rib fractures. No evidence of pneumothorax. Cardiomegaly. Atherosclerosis.
--- NOTE | 2019-07-31 23:26 | RAD ---
AP pelvis one view HISTORY: Fall. Pelvic injury. FINDINGS: Sacral alae and pelvic rings are intact. Postoperative changes lower lumbar spine. Mild deg enerative changes of the hips. No displaced fractures are apparent.
--- NOTE | 2019-07-31 23:28 | RAD ---
Left humerus 2 views HISTORY: Left arm injury. FINDINGS: Internal fixation of the distal humerus with medial and lateral compression plate and multi ple screws. No hardware lucency. No acute fracture evident. Soft tissue swelling over the posterior aspect of the arm. Old fracture of the humeral head and neck again demonstrated. IMPRESSION: Old posttraumatic and postoperative findings. No acute osseous abnormalities are demonstr ated.
[2019-07-31] MEDS ORDERED: HYDROcodone/Acetaminophen 10/325 mg Tablet ONE (23:56)
== END 2019-08-01 00:56 | disposition home or self-care (01) ==
LOC: ERS 21:39
DX: S22.42XA Multiple fractures of ribs, left side, initial encounter for closed fracture (principal); I50.9 Heart failure, unspecified; J44.9 Chronic obstructive pulmonary disease, unspecified; I49.9 Cardiac arrhythmia, unspecified; I48.91 Unspecified atrial fibrillation; E03.9 Hypothyroidism, unspecified; K21.9 Gastro-esophageal reflux disease without esophagitis; F41.9 Anxiety disorder, unspecified; F32.9 Major depressive disorder, single episode, unspecified; Z87.891 Personal history of nicotine dependence; W18.30XA Fall on same level, unspecified, initial encounter
CPT/HCPCS: 72170

== ENCOUNTER 2019-08-01 20:58 | Observation (INO) | payer MEDICARE ==
[2019-08-01] MEDS ORDERED: Fentanyl 100 MCG/2 ML VIAL ONE (21:42)
[2019-08-01] MEDS ORDERED: Ketorolac Tromethamine 30 MG/ML VIAL ONE (21:42)
[2019-08-01 21:51] LABS: #Eosinphils 0.1 thou/uL (0.0-0.7); #Lymphocytes 0.9 thou/uL (1.20-3.40); #Monocytes 0.9 thou/uL (0.11-0.59); #Neutrophils 4.3 thou/uL (1.40-6.50); %Basophils 0.7 % (0.0-1.0); %Eosinophils 0.9 % (0.0-10.0); %Lymphocytes 15.1 % (21.0-51.0); %Monocytes 13.9 % (0.0-10.0); %Neutrophils 69.5 % (42.0-75.0); Hemoglobin 12.5 g/dL (12.0-16.0); Mean Corpuscular HGB CONC 34.3 g/dL (32.0-36.0); Mean Corpuscular Hemoglobin 32.7 pg (27.0-31.0); Mean Corpuscular Volume 95.4 fL (78.0-98.0); Mean Platelet Volume 7.1 fL (7.4-10.4); Platelet Count 207 thou/uL (130-400); RBC Distribution Width 13.7 % (11.5-14.5); Red Blood Cell (RBC) Count 3.83 mill/uL (4.20-5.40); White Blood Cell (WBC) Count 6.2 thou/uL (4.8-10.8)
--- NOTE | 2019-08-01 22:03 | RAD ---
Chest one view HISTORY: Injury. Rib fractures. COMPARISON: Earlier exam on the same date. FINDINGS: Cardiac silhouette is magnified and enlarged. Patient is rotated rightward. There is calcif ication in the aorta. Right hemidiaphragm is elevated. Left lateral lower rib fractures not as well demonstrated on the current exam. Old healed left should er fracture. No evidence of pneumothorax. IMPRESSION: Stable radiographic appearance of the chest. No evidence of pneumothorax.
--- NOTE | 2019-08-01 22:07 | RAD ---
Left foot 3 views HISTORY: Left foot pain. FINDINGS: Lisfranc joint alignment is anatomic. Plantar arch is maintained. Mild osteophytosis of the ankle and throughout the foot. No acute fracture, dislocation, or aggressive osseous erosions. Osseous structures are diffusely demineralized. Mild bunion deformity. IMPRESSION: Mild degenerative changes and other chronic-type findings. No acute osseous abnormalities are demonstrated. Osteoporosis.
[2019-08-01 22:12] LABS: ALT (SGPT) 20 U/L (8-55); AST (SGOT) 21 U/L (5-34); Alkaline Phosphatase 88 U/L (40-110); Anion Gap 12 mmol/L (10-20); BUN (Urea Nitrogen) 9 mg/dL (9.8-20.1); Bilirubin, Total 0.6 mg/dL (0.2-1.2); Calc. Creatinine Clearance 0 mL/min (70-130); Calcium 8.8 mg/dL (7.8-10.44); Carbon Dioxide 29 mmol/L (23-31); Chloride 98 mmol/L (98-107); Estimated GFR-MDRD 69; Globulin 2.7 g/dL (2.4-3.5); Glucose 159 mg/dL (83-110); Potassium 3.8 mmol/L (3.5-5.1); Protein, Total 6.7 g/dL (6.0-8.3); Sodium 135 mmol/L (136-145)
[2019-08-02] MEDS ORDERED: Dextrose 50% Abboject 50 ML SYRINGE SLOW IVP PRN (00:17)
[2019-08-02] MEDS ORDERED: Ondansetron ODT 4 MG TAB PO PRN (00:17)
[2019-08-02] MEDS ORDERED: Ondansetron PF 4 MG/2 ML Vial IVP PRN (00:17)
[2019-08-02] MEDS ORDERED: Dextrose 5% in Water 1,000 ML IV PRN (00:17)
[2019-08-02] MEDS ORDERED: hydrALAZINE 20 MG/ML VIAL SLOW IVP PRN (00:17)
[2019-08-02 01:02] LABS: Magnesium 1.9 mg/dL (1.6-2.6); Phosphorus 4.5 mg/dL (2.3-4.7)
[2019-08-02] MEDS: Cyclobenzaprine 10 MG TAB PO PRN (01:05)
[2019-08-02] MEDS: traMADol HCl 50 MG TAB PO PRN ×3 (01:05→18:13)
[2019-08-02] MEDS ORDERED: Fentanyl 100 MCG/2 ML VIAL SLOW IVP SCH (01:30)
[2019-08-02] MEDS ORDERED: Gabapentin 300 MG CAP PO SCH ×2 (01:45→09:00)
[2019-08-02] MEDS: Acetaminophen 500 MG TAB PO SCH ×4 (01:45→18:12)
[2019-08-02 02:08] VITALS: BMI 27.8
--- NOTE | 2019-08-02 02:26 | HP ---
REQUESTING PHYSICIAN: Dr. Mccarty. PRIMARY CARE PHYSICIAN: Dr. Champion. CHIEF COMPLAINT: Left rib pain. HISTORY OF PRESENT ILLNESS: This is an 84-year-old female, who presented to the emergency room with complaints of left-sided rib pain and shortness of breath since last night. The patient was seen in the emergency room last night and was diagnosed with multiple left rib fractures after she tripped and fell landing against her car mirror. She denies being dizzy, having any chest pain or shortness of breath before falling last night. The patient returned to the ER for uncontrolled pain with [place]. The patient also complained of some left foot and toe pain which x-rays were negative. The patient denies any loss of consciousness or hitting her head. The patient does take Pradaxa for her atrial fibrillation history. She uses a walker to ambulate and has had several falls in the last year. 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 Varma and ENT for her vertigo and falls. PAST MEDICAL HISTORY: Atrial fibrillation, sleep apnea, hypothyroidism, bulging disk in back, congestive heart failure, gastroesophageal reflux disease, vertigo , anxiety, and depression. PAST SURGICAL HISTORY: Bladder suspension, hysterectomy, oophorectomy, right foot, right knee replacement, back surgery x5, left knee surgery 05/2019, left arm surgery status post fall 10/2018, bilateral cataract surgery. SOCIAL HISTORY: The patient was a previous smoker, stopped about 10 years ago, occasional alcohol use. No illicit drug use. The patient lives at home with her spouse, the patient uses a walker to ambulate. ALLERGIES: SULFA, MORPHINE, PREDNISONE. MEDICATIONS: 1. Alprazolam 0.25 mg 2 times a day. 2. Digoxin 125 mcg daily. 3. Pradaxa 150 mg b.i.d. 4. Synthroid 50 mcg. 5. Irbesartan 300 mg daily. 6. Lasix 40 mg daily. 7. Duloxetine 60 mg once a day. 8. Nexium 40 mg once a day. PHYSICAL EXAMINATION: VITAL SIGNS: Blood pressure 137/70, pulse 77, respirations 17, temperature 98.4 , SpO2 96% on room air. GENERAL: Well-appearing elderly female, lying in hospital bed, in moderate distress due to left rib pain. HEENT: Head is atraumatic and normocephalic. Pupils were equal bilateral. Extraocular muscles are intact. Mucous membranes moist. NECK: Normal range of motion. Trachea midline. No cervical spine tenderness. RESPIRATORY: Tenderness to the left anterior chest, bilateral breath sounds clear. No wheezing, rales, or rhonchi. No respiratory distress. CARDIOVASCULAR: Irregularly irregular rate, no pedal edema, no murmurs. ABDOMEN: Soft, nontender, nondistended. EXTREMITIES: Moves all extremities. Distal pulses intact, mild ecchymosis to the left foot. NEUROLOGIC: No focal deficits, GCS 15. DIAGNOSTIC STUDIES: A 12-lead EKG, atrial fibrillation, with no T-wave or ST-segment abnormalities. Controlled rate. Chest x-ray, impression; left lateral lower rib fractures, cardiac silhouette is well defined and enlarged. Calcification in the aorta, right hemidiaphragm is elevated. No evidence of a pneumothorax. Left foot x-ray, mild degenerative changes, no acute osseous abnormalities. LABORATORY DATA: WBC 6.2, RBC 3.83, hemoglobin 12.5, hematocrit 36.5, platelets 207. Sodium 135, potassium 3.8, chloride 98, BUN 9, creatinine 0.80, estimated GFR 69, glucose 159, calcium 8.8, phosphorus 4.5, magnesium 1.9. IMPRESSION: 1. Status post trip and fall. 2. Left rib fractures 4 through 10. 3. Acute traumatic pain. 4. History of atrial fibrillation, on Pradaxa. Sleep apnea, hypothyroidism, anxiety, depression. PLAN: We will place the patient on observation for pain management. We will place the patient on p.o. rib fracture protocol and a bowel regimen. We will have Physical and Occupational Therapy work with the patient. We will encourage aggressive pulmonary toilet. Once the patient's pain is controlled, the patient should likely be able to be discharged home versus inpatient rehab on a pain regimen. The plan will be discussed with the attending after this dictation. Job ID: [id number] [facility]
[2019-08-02 05:11] LABS: Anion Gap 14 mmol/L (10-20); BUN (Urea Nitrogen) 10 mg/dL (9.8-20.1); Calc. Creatinine Clearance 73 mL/min (70-130); Calcium 8.4 mg/dL (7.8-10.44); Carbon Dioxide 27 mmol/L (23-31); Chloride 101 mmol/L (98-107); Estimated GFR-MDRD 76; Glucose 112 mg/dL (83-110); Potassium 3.7 mmol/L (3.5-5.1); Sodium 138 mmol/L (136-145)
[2019-08-02] MEDS: traMADol HCl 50 MG TAB PO SCH ×3 (05:27→17:00)
[2019-08-02] MEDS: Ibuprofen 200 MG TAB PO SCH ×3 (05:27→21:12)
[2019-08-02] MEDS: Levothyroxine Sodium 50 MCG TAB PO SCH (05:27)
[2019-08-02] MEDS ORDERED: Acetaminophen 500 MG TAB PO SCH (06:00)
[2019-08-02] MEDS ORDERED: Potassium Chloride 20 MEQ TAB PO SCH (07:45)
[2019-08-02] MEDS ORDERED: Magnesium 2 GM/50 ML 2 GM in Premix Bag 1 BAG IVPB SCH (07:45)
[2019-08-02] MEDS: Senokot S 8.6-50 MG TAB PO SCH ×2 (09:06→20:32)
[2019-08-02] MEDS: Thiamine 100 MG TAB PO SCH (09:06)
[2019-08-02] MEDS: DULoxetine 60 MG CAP PO SCH (09:06)
[2019-08-02] MEDS: Dabigatran 150 mg Capsule PO SCH ×2 (09:06→20:28)
[2019-08-02] MEDS: Digoxin 0.125 MG TAB PO SCH (09:06)
[2019-08-02] MEDS: Gabapentin 100 MG CAP PO SCH ×3 (09:06→20:29)
[2019-08-02] MEDS: Losartan 25 MG TAB PO SCH (09:07)
[2019-08-02] MEDS: Polyethylene Glycol 3350 17 GM Packet PO SCH (09:15)
--- NOTE | 2019-08-02 12:12 | PRG ---
DATE OF SERVICE: 08/02/2019 SUBJECTIVE: The patient is resting comfortably this morning. She does complain of pain with movement and pain with deep inspiration. We discussed using the incentive spirometer correctly and alternative methods for exercising her lung as well as managing her pain while doing so. She voiced understanding of the need for prevention of pneumonia and atelectasis. OBJECTIVE: VITAL SIGNS: Reviewed and within normal limits except for mild tachycardia intermittently. GENERAL: The patient was resting comfortably, in no acute distress. RESPIRATORY: The patient is breathing comfortably, pain with deep inspiration, however, no respiratory distress noted. EXTREMITIES: Moves all four extremities. ASSESSMENT: 1. Status post trip and fall. 2. Left rib fractures 4 through 10. 3. Acute pain. 4. History of atrial fibrillation on Pradaxa for anticoagulation, sleep apnea, hypothyroidism, anxiety, depression. PLAN: We will plan to discharge the patient today if rehab was approved, Continue incentive spirometry and rib fracture protocol. Job ID: [id number] [facility]
[2019-08-02] MEDS: ALPRAZolam 0.25 MG TAB PO SCH (20:28)
--- NOTE | 2019-08-03 00:32 | PRG ---
DATE OF SERVICE: 08/02/2019 SUBJECTIVE: The patient was seen this evening during rounds, resting comfortably in no acute distress. The patient's daughter states that her pain has been well controlled and has no complaints or concerns at this time. OBJECTIVE: VITAL SIGNS: Stable, afebrile. GENERAL: Elderly female, well appearing, in no acute distress. ASSESSMENT: 1. Status post trip and fall. 2. Left rib fractures 4 through 10. 3. Acute traumatic pain, improving. 4. History of atrial fibrillation, on Pradaxa, sleep apnea, hypothyroidism, anxiety and depression. PLAN: Continue supportive care and pain management. Continue pulmonary toilet. The patient is pending placement to inpatient rehab. Job ID: [id number]
[2019-08-03] MEDS: traMADol HCl 50 MG TAB PO SCH ×2 (00:39→06:32)
[2019-08-03] MEDS: Acetaminophen 500 MG TAB PO SCH ×3 (00:39→14:26)
[2019-08-03] MEDS: Ibuprofen 200 MG TAB PO SCH ×2 (06:33→14:26)
[2019-08-03] MEDS: Levothyroxine Sodium 50 MCG TAB PO SCH (06:33)
[2019-08-03] MEDS ORDERED: Furosemide 40 MG TAB PO SCH (07:30)
[2019-08-03] MEDS: Digoxin 0.125 MG TAB PO SCH (08:43)
[2019-08-03] MEDS: Cyclobenzaprine 10 MG TAB PO PRN (08:43)
[2019-08-03] MEDS: Dabigatran 150 mg Capsule PO SCH (08:43)
[2019-08-03] MEDS: DULoxetine 60 MG CAP PO SCH (08:43)
[2019-08-03] MEDS: ALPRAZolam 0.25 MG TAB PO SCH (08:43)
[2019-08-03] MEDS: Thiamine 100 MG TAB PO SCH (08:44)
[2019-08-03] MEDS: traMADol HCl 50 MG TAB PO PRN (08:44)
[2019-08-03] MEDS: Losartan 25 MG TAB PO SCH (08:44)
[2019-08-03] MEDS: Gabapentin 100 MG CAP PO SCH (08:44)
[2019-08-03] MEDS: Senokot S 8.6-50 MG TAB PO SCH (08:44)
[2019-08-03] MEDS: Polyethylene Glycol 3350 17 GM Packet PO SCH (08:47)
[2019-08-03] MEDS ORDERED: Gabapentin 100 MG CAP PO SCH (10:37)
[2019-08-03] MEDS ORDERED: traMADol HCl 50 MG TAB PO SCH (10:38)
[2019-08-03] MEDS ORDERED: Lidocaine 5% Patch TD SCH (11:00)
[2019-08-03 16:28] VITALS: BP 150/87; TEMP 98.4
[2019-08-03] MEDS ORDERED: Lidocaine Patch Removal 1 EACH TOP SCH (23:00)
--- NOTE | 2019-08-07 07:23 | DIS ---
DATE OF ADMISSION: 08/02/2019 DATE OF DISCHARGE: 08/03/2019 ADMISSION DIAGNOSES: Mechanical fall from standing, left-sided ribs 4 through 10 fracture, and acute traumatic pain. DISCHARGE DIAGNOSES: Mechanical fall from standing, left-sided ribs 4 through 10 fracture, and acute traumatic pain. CONSULTING PHYSICIAN: None. PROCEDURES: None. HOSPITAL COURSE: The patient is an 84-year-old female, who presents to the Emergency Department complaining of significant left-sided chest wall pain. She had a fall the day before admission and is taking Pradaxa for atrial fibrillation. She reports coming to the emergency department the day prior and being discharged with pain medications, but she had shortness of breath and persistent pain and subsequently re-presented. She was admitted to the Trauma Surgery Service under observation for pain control. At the time of discharge, the patient's pain was well controlled. She was tolerating regular diet, voiding and having bowel movements without issues and working with Physical and Occupational Therapy. DISCHARGE DISPOSITION: Acute rehab. DISCHARGE CONDITION: Satisfactory. PHYSICAL EXAMINATION: VITAL SIGNS: Temperature 98.1, pulse 92, respirations 16, oxygen saturation 95% on room air, and blood pressure 134/83. GENERAL: Well-appearing elderly female, lying in bed with no signs of acute distress. PULMONARY: Equal chest rise and fall. Clear breath sounds bilaterally. No signs of acute respiratory distress. CARDIAC: Regular rate and rhythm. No murmurs, gallops, or rubs. GI: Abdomen is soft, nontender, and nondistended. EXTREMITIES: 2+ pulses in all extremities. Gross motor and sensation intact. No significant swelling noted. NEURO: GCS is 15. DISCHARGE INSTRUCTIONS: The patient was discharged to acute rehab. Activity as tolerated. Regular diet. Physical therapy. Incentive spirometry and acapella 10 to 15 times an hour while awake. DISCHARGE MEDICATIONS: Include; 1. Tylenol. 2. Xanax. 3. Flexeril. 4. Pradaxa. 5. Digoxin. 6. Cymbalta. 7. Nexium. 8. Lasix. 9. Gabapentin. 10. Ibuprofen. 11. DuoNeb p.r.n. 12. Irbesartan. 13. Levothyroxine. 14. Lidoderm patches. 15. MiraLAX. 16. Senokot S. 17. Thiamine. 18. Tramadol. FOLLOWUP APPOINTMENTS: The patient is to follow up in Trauma Clinic with Dr. Mcelroy on August 16, 2019 at 10:30 a.m. She is to complete a chest x-ray before her arrival. This is a summary of the patient's hospitalization. For full details, please see her medical record in its entirety. Job ID: [id number]
== END 2019-08-03 16:30 ==
LOC: ERS 20:58 → INTOOBSV 08-02 00:46 → SURG A 08-02 00:46
PROVIDERS: ADMIT Specialist; ATTEND Specialist
DX: S22.42XA Multiple fractures of ribs, left side, initial encounter for closed fracture (principal); G89.11 Acute pain due to trauma; I48.91 Unspecified atrial fibrillation; G47.30 Sleep apnea, unspecified; E03.9 Hypothyroidism, unspecified; F41.9 Anxiety disorder, unspecified; F32.9 Major depressive disorder, single episode, unspecified; K21.9 Gastro-esophageal reflux disease without esophagitis; I50.9 Heart failure, unspecified; Z87.891 Personal history of nicotine dependence; Z79.01 Long term (current) use of anticoagulants; Z79.899 Other long term (current) drug therapy; Z88.2 Allergy status to sulfonamides; Z88.5 Allergy status to narcotic agent; W01.198A Fall on same level from slipping, tripping and stumbling with subsequent striking against other object, initial encounter
CPT/HCPCS: 71045; 73630; 80048; 80053; 83735; 84100; 85025; 96361; 96374; 96375 ×2; 96376; 97116; 97139 ×5; 97535; 99285; G0378 ×3; 36415; J0360; J1885; J3010; J3475

== ENCOUNTER 2020-05-08 10:11 | Emergency (ER) | payer MEDICARE ==
[2020-05-08 10:53] LABS: Hemoglobin 12.1 g/dL (12.0-16.0); Mean Corpuscular HGB CONC 35.5 g/dL (32.0-36.0); Mean Corpuscular Hemoglobin 34.2 pg (27.0-31.0); Mean Corpuscular Volume 96.4 fL (78.0-98.0); Platelet Count 250 thou/uL (130-400); RBC Distribution Width 12.8 % (11.5-14.5); Red Blood Cell (RBC) Count 3.54 mill/uL (4.20-5.40); White Blood Cell (WBC) Count 4.2 thou/uL (4.8-10.8)
[2020-05-08 11:12] LABS: Band 10 % (5-11); Lymphocytes 24 % (21-51); MDiff Complete? YES; Metamyelocyte 1 % (0-0); Monocytes 18 % (0-10); Neutrophil 46 % (42-75); Platelet Morphology Comment Appears Adequate; Polychromasia SLIGHT = 2-3 cells (100X) (0-2/hpf); Reactive Lymphocytes 2 % (0-10)
[2020-05-08 11:15] LABS: ALT (SGPT) 18 U/L (8-55); AST (SGOT) 23 U/L (5-34); Albumin 3.8 g/dL (3.4-4.8); Alkaline Phosphatase 82 U/L (40-110); Anion Gap 12 mmol/L (10-20); BUN (Urea Nitrogen) 10 mg/dL (9.8-20.1); Bilirubin, Total 0.5 mg/dL (0.2-1.2); Calc. Creatinine Clearance 0 mL/min (70-130); Calcium 8.9 mg/dL (7.8-10.44); Carbon Dioxide 28 mmol/L (23-31); Chloride 96 mmol/L (98-107); Estimated GFR-MDRD 80; Globulin 2.8 g/dL (2.4-3.5); Glucose 122 mg/dL (83-110); Lipase 47 U/L (8-78); Potassium 4.2 mmol/L (3.5-5.1); Protein, Total 6.6 g/dL (6.0-8.3); Sodium 132 mmol/L (136-145)
--- NOTE | 2020-05-08 12:19 | CT ---
HEAD CT WITHOUT CONTRAST: Date: 05/08/2020 COMPARISON: 11/03/2018. HISTORY: Hyponatremia. Fatigue. Weakness. Headache and nausea. FINDINGS: No parenchymal hemorrhage. No extra-axial hematoma. No midline shift. Basilar cisterns are patent. Age-appropriate atrophy. Cortical williamson-white matter differentiation is preserved. No hydrocephalus. There are chronic small vessel ischemic changes of the white matter. Adequate aeration of the sinuses and mastoid air cells. Calvarium is intact. IMPRESSION: No acute intracranial process. POS: AH
[2020-05-08] MEDS ORDERED: diphenhydrAMINE 50 MG/ML VIAL ONE (12:37)
[2020-05-08] MEDS ORDERED: Metoclopramide HCl 10 MG/2 ML VIAL ONE (12:37)
[2020-05-08 13:18] LABS: Bilirubin Negative (Negative); Blood, Urine Negative (Negative); Clarity Clear (Clear); Glucose, Urine (Dipstick) Normal (Negative); Ketone, Urine Negative (Negative); Leukocyte Negative Leu/uL (Negative); Nitrite Negative (Negative); Protein, Urine (Dipstick) 10 mg/dL (Neg-Trace); Specific Gravity, Urine 1.017 (1.002-1.036)
[2020-05-08] MEDS ORDERED: Ketorolac Tromethamine 30 MG/ML VIAL ONE (14:18)
== END 2020-05-08 14:52 | disposition home or self-care (01) ==
LOC: ERS 10:11
DX: R51.9 Headache, unspecified (principal); R53.1 Weakness; J44.9 Chronic obstructive pulmonary disease, unspecified; I48.91 Unspecified atrial fibrillation; E03.9 Hypothyroidism, unspecified; I50.9 Heart failure, unspecified; K21.9 Gastro-esophageal reflux disease without esophagitis; F41.9 Anxiety disorder, unspecified; F32.9 Major depressive disorder, single episode, unspecified; Z87.891 Personal history of nicotine dependence
CPT/HCPCS: 36415; 51701; 70450; 80053; 81003; 83690; 84443; 84484; 85025; 85652; 93005; 96365; 96366; 96375; J1200; J1885; J2765

== ENCOUNTER 2020-07-04 15:56 | Inpatient (IN) | payer MEDICARE ==
[2020-07-04] MEDS ORDERED: Morphine 4 MG/ML VIAL ONE (16:40)
[2020-07-04] MEDS ORDERED: Ondansetron PF 4 MG/2 ML Vial ONE (16:40)
--- NOTE | 2020-07-04 16:53 | CT ---
CT BRAIN WITHOUT CONTRAST: HISTORY:Fall, head injury COMPARISON:05/08/2020 FINDINGS: There are foci of decreased attenuation in the periventricular white matter, consistent with chronic small vessel ischemic disease. Changes of cortical atrophy are again seen. No evidence of acute infarct, hemorrhage, midline shift or abnormal extra-axial fluid collections is seen. The ventricular size is appropriate and the basilar cisterns are patent. The bony calvarium is intact. The visualized paranasal sinuses and left mastoid air cells are well aerated. There are postop change s in the right mastoid. IMPRESSION: No CT evidence of acute intracranial process.
--- NOTE | 2020-07-04 17:04 | CT ---
CT Lumbar Spine WO Con History: Fall Comparison: None. Findings: Aortic contour is nonaneurysmal. Moderate vascular plaque. Bones are demineralized. Vertebral screw L4-S1. Spinous process hardware L4/L5 and L5/S1. Complete burst fracture of L1 with retropulsion and indwelling cement within the anterior vertebral b deb. Retropulsion narrows the spinal canal to 5 mm. Moderate-severe bilateral neural foraminal narrowing. Impression: Similar burst fracture of L1 with retropulsion and spinal canal narrowing. No acute lumba r spine fracture.
--- NOTE | 2020-07-04 17:10 | RAD ---
XR Pelvis AP STANDARD History: Fall Comparison: Radiograph 08/01/2019 Findings: The obturator rings appear to be intact. No acute displaced fracture is appreciated. Few ph leboliths in the pelvis. Moderate degenerative disease SI joints. Left L4/L5 posterior spinal fusion hardware with transpedicular screws and interconnecting rods. Retr ograde through L4-S1 vertebral bodies. Posterior spinous process hardware at L4/L5 and L5/S1. Impression: No acute pelvic fracture.
--- NOTE | 2020-07-04 17:10 | RAD ---
XR Knee Rt 4 View STANDARD History: Fall Comparison: None. Findings: Intact right total knee arthroplasty. No acute fracture. Moderate vascular calcifications. Impression: No acute osseous abnormality.
--- NOTE | 2020-07-04 17:17 | CT ---
CT Thoracic Spine WO Con History: Fall. Pain Comparison: Radiograph August 17, 2019 Findings: No pneumothorax. Mild peripheral scarring lung bases. Moderate aortic calcifications. Mild cardiomegaly. Hypodensity superior pole left kidney has grown from 2017 not definitively a cyst. The L1 burst fracture similar. Anterior superior compression deformity of T3 appears subacute as ther e is no adjacent paravertebral hematoma. No retropulsion. No involvement of the posterior superior vertebral body. Low-grade 10-15% height loss. No posterior element involvement. Bones are demineralized. Multiple old left rib neck fractures and posterior rib fractures. Impression: 1. Subacute T3 superior endplate compression deformity with 10-15% height loss. No significant parave rtebral hematoma No retropulsion. 2. Similar L1 burst fracture dating back to 2017. 3. No acute thoracic spine fracture is appreciated. 4. Multiple old left rib fractures. No acute posterior rib fracture. 5. Enlarging hypodensity superior pole left kidney measuring greater than fluid attenuation. Nonemerg ent follow-up renal protocol CT or MRI recommended.
[2020-07-04 17:36] LABS: #Eosinphils 0.1 thou/uL (0.0-0.7); #Lymphocytes 1.5 thou/uL (1.20-3.40); #Monocytes 0.7 thou/uL (0.11-0.59); %Basophils 0.4 % (0.0-1.0); %Eosinophils 1.5 % (0.0-10.0); %Lymphocytes 18.2 % (21.0-51.0); %Monocytes 8.1 % (0.0-10.0); %Neutrophils 71.8 % (42.0-75.0); Hemoglobin 14.1 g/dL (12.0-16.0); Mean Corpuscular HGB CONC 34.1 g/dL (32.0-36.0); Mean Corpuscular Hemoglobin 32.5 pg (27.0-31.0); Mean Corpuscular Volume 95.3 fL (78.0-98.0); Platelet Count 294 thou/uL (130-400); RBC Distribution Width 11.7 % (11.5-14.5); Red Blood Cell (RBC) Count 4.34 mill/uL (4.20-5.40); White Blood Cell (WBC) Count 8.4 thou/uL (4.8-10.8)
[2020-07-04 17:49] LABS: ALT (SGPT) 12 U/L (8-55); AST (SGOT) 15 U/L (5-34); Albumin 4.3 g/dL (3.4-4.8); Alkaline Phosphatase 133 U/L (40-110); Anion Gap 15 mmol/L (10-20); BUN (Urea Nitrogen) 12 mg/dL (9.8-20.1); Bilirubin, Total 0.5 mg/dL (0.2-1.2); Calc. Creatinine Clearance 0 mL/min (70-130); Carbon Dioxide 29 mmol/L (23-31); Chloride 96 mmol/L (98-107); Globulin 3.3 g/dL (2.4-3.5); Glucose 126 mg/dL (83-110); Potassium 4.2 mmol/L (3.5-5.1); Protein, Total 7.6 g/dL (6.0-8.3); Sodium 136 mmol/L (136-145)
[2020-07-04] MEDS ORDERED: HYDROmorphone 0.5 MG/0.5 ML SYRINGE ONE (18:29)
[2020-07-04] MEDS ORDERED: Ketamine 50 MG/ML (10ML VIAL) ONE (19:15)
[2020-07-04] MEDS ORDERED: Metoprolol Tartrate 5 MG/5 ML VIAL IVP PRN (20:15)
[2020-07-04] MEDS: Methocarbamol 500 MG TAB PO SCH (21:56)
[2020-07-04 22:22] VITALS: BMI 21.7
[2020-07-04] MEDS ORDERED: Cepastat Lozenges 1 LOZ PO PRN (22:23)
[2020-07-04] MEDS: Fentanyl 100 MCG/2 ML VIAL SLOW IVP PRN (22:43)
--- NOTE | 2020-07-05 01:38 | HP ---
REASON FOR ADMISSION: Post fall. HISTORY OF PRESENT ILLNESS: This is an 84-year-old female patient who lost her balance and fell. She presents complaining of severe back pain. The patient did fall and hit her head and her hips and back. She was seen in [facility] and did undergo a CT of the chest, abdomen, pelvis, as well as CT of the head and the C-spine. No acute abnormality was found, but she continued to have worsening of her back pain. For that reason, she was transferred to our emergency room. Reviewing her records, the patient was admitted to the hospital in July of this year with complaint of left-sided rib pain and shortness of breath, found to have multiple left rib fractures after she tripped and fell, landing against her car mirror. While in the hospital, she received physical therapy and was discharged to rehabilitation center, then home. At home, she did receive physical therapy as well, but continued to be unsteady on her feet and had multiple falls as per her . PAST MEDICAL HISTORY: 1. Atrial fibrillation. 2. Sleep apnea. 3. Hypothyroidism. 4. Bulging disk in the back. 5. Congestive heart failure. 6. Gastroesophageal reflux disease. 7. Vertigo. 8. Anxiety. 9. Depression. 10. Post bladder suspension. 11. Hysterectomy. 12. Oophorectomy. 13. Right foot and knee replacement. 14. Back surgery. 15. Knee surgery. 16. Bilateral cataract surgery. SOCIAL HISTORY: She is a previous smoker, stopped about 10 years ago. She occasionally drinks alcohol. ALLERGIES: TO SULFA, MORPHINE, AND PREDNISONE. REVIEW OF SYSTEMS: All systems reviewed except the above mentioned and found to be negative. PHYSICAL EXAMINATION: GENERAL: She is awake, alert, oriented. Does not appear in distress. VITAL SIGNS: Her blood pressure is 131/82, heart rate of 94, saturating 99% on room air. HEENT: Head is nontraumatic, normocephalic. Pupils equal, reactive. Extraocular movements are intact. Nonicteric sclerae. Well-injected conjunctivae. Oral mucosa normal. Nasal mucosa normal. NECK: Supple. No adenopathy. No murmur. Thyroid is not palpable. Trachea is midline. No supraclavicular adenopathy. HEART: S1, S2 irregular. No murmurs. No gallops. No friction rubs. No displacement of PMI. LUNGS: Clear to auscultation bilaterally. No wheezes. No rhonchi. No crackles. ABDOMEN: Bowel sounds are positive. Nontender abdomen. No visceromegaly. EXTREMITIES: No lower extremity edema. No cyanosis. NEURO: Cranial nerves 2-12 within normal limits. Normal motor function. Normal sensory function. Normal reflexes. LABORATORY DATA: Blood work showed WBC of 8.4, hemoglobin of 14.1, platelets of 294. Sodium 136, potassium 4.2, bicarb of 29, creatinine 0.93. DIAGNOSTIC DATA: X-ray of the knee shows no acute disease. A CT of the thoracic spine shows subacute T3 superior endplate compression deformity with 10% to 15% height loss. No significant paravertebral hematoma. No retropulsion. Similar L1 burst fracture dating back to 2017. No acute thoracic spine fracture is appreciated. Multiple old left rib fractures. No acute posterior rib fracture. Enlarging hypodensity, superior pole of the left kidney measuring greater than fluid attenuation. Nonemergent followup renal protocol CT or MRI is recommended. Pelvic x-ray shows no acute pelvic fracture. CT of the brain shows no evidence of intracranial process. ASSESSMENT AND PLAN: 1. This is an 84-year-old female patient who has multiple falls. She does have chronic back pain. She sees Pain Management. The plan was to do an MRI of the lumbosacral spine since she is receiving injections in the spine. The patient will be admitted to Med/Surg. We will start her on pain control. We will ask Physical Therapy to assess her. We will hold Pradaxa for now in the morning. We will repeat a CT of the head. We will do an MRI of the thoracic and LS spine if she has fractures that are amenable to kyphoplasty in order to provide more pain control. 2. In regard of the incidental finding around her left kidney, I have explained to her and her this finding and the need to have an outpatient followup with their primary care physician. I will also forward my note to their primary care physician. 3. In regard of her high blood pressure, we will resume her home medication and we will have her on p.r.n. Lopressor. 4. For deep venous thrombosis prophylaxis, she will be on sequential compression devices and Lovenox. 5. Endocrinology. The patient has hypothyroidism. We will resume levothyroxine. 6. I attempted to discuss her code status. She was not able to give me an answer. Job ID: [id number]
[2020-07-05 04:44] LABS: SARS-CoV-2 MS2 Positive; SARS-CoV-2 N Gene Negative; SARS-CoV-2 S Gene Negative; SARS-CoV-2 by NAA Not Detected (NotDetected); SARS-CoV-2 orf1ab Negative
[2020-07-05] MEDS: Fentanyl 100 MCG/2 ML VIAL SLOW IVP PRN ×3 (05:10→14:20)
[2020-07-05] MEDS: Methocarbamol 500 MG TAB PO SCH ×3 (07:56→20:21)
--- NOTE | 2020-07-05 09:30 | CT ---
CT OF BRAIN PERFORMED WITHOUT CONTRAST ENHANCEMENT: HISTORY: Followup of recent fall. COMPARISON: 07/04/2020 study. FINDINGS: There is generalized ventricular and sulcal prominence. There is decreased attenuation to the perive ntricular white matter. There are no signs of intracerebral hemorrhage or extraaxial fluid collectio ns. Postoperative changes in the region of the right mastoids are noted. The visualized sinuses are clear. IMPRESSION: No acute intracranial abnormality. POS: ALINE
--- NOTE | 2020-07-05 11:58 | MRI ---
MRI OF LUMBAR SPINE PERFORMED WITHOUT CONTRAST ENHANCEMENT: HISTORY: The patient had a fall several days ago and has had worsening back pain. Currently on a blood thinne r. COMPARISON: A CT examination that performed yesterday. FINDINGS: The burst-type fracture with severe retropulsion of the L1 vertebral body is again demonstrated. The bony retropulsion is approximately 9-10 mm. Postoperative changes at the L4-5 and L5-S1 levels are seen with a lag-type screw placed through the L4-L5 vertebral bodies and S1 vertebral body. Posterio r intraspinous spaces are also present at this level. I do not see any signs of any epidural collect ion. No significant periaortic adenopathy. A T2 hyperintense lesion involving the left kidney is mo st likely a cyst. T12-L1: No significant canal stenosis at this disk level. L1-2: There is no canal stenosis at this disk level; however, superior to this there is a moderate d egree of stenosis related to the bony retropulsion and there is also severe bilateral foraminal narro wing at this level. L2-3: Degenerative facet changes at this level asymmetrically involve the left side. There is no si gnificant central canal stenosis, but there is marked left-sided foraminal narrowing. L3-4: Moderately severe canal stenosis at this level. Facet and ligamentous hypertrophic change. T here is also a disk bulge present. There is marked left and right foraminal narrowing. L4-5: The canal shows moderately severe stenosis at this level. There is marked right and moderate left foraminal stenosis. L5-S1: Moderate bilateral foraminal stenosis at this level. The canal is borderline narrowed. IMPRESSION: Multilevel areas of canal and foraminal stenosis as discussed above. Prominent bony retropulsion of the L1 vertebral body burst fracture has a similar appearance to the previous CT exam of 07/04/2020. POS: ALINE
--- NOTE | 2020-07-05 12:18 | MRI ---
MRI OF THORACIC SPINE PERFORMED WITHOUT CONTRAST ENHANCEMENT: HISTORY: Fall with back pain. COMPARISON: CT examination done 07/04/2020. FINDINGS: The L1 burst fracture is again noted. Subtle increased signal change on the STIR sequence at the T11 level is felt to most likely be on the basis of a hemangioma. There is a very subtle superior end p late compression fracture of T7. There is diffuse marrow edema change associated with this. The T3 changes noted on the previous CT examination showed no evidence of any marrow edema change to suggest that this is acute. At the T7 level, there is some very minimal right-sided bony retropulsion, but there is no canal narr owing. IMPRESSION: 1. Acute T7 compression injury with only very minimal loss of vertebral body height at the superior end plate. No evidence of any significant bony retropulsion. 2. Old-appearing subtle compression changes of the superior end plate of T3. POS: ALINE
[2020-07-05] MEDS: HYDROcodone/Acetaminophen 10/325 mg Tablet PO PRN ×2 (12:19→17:21)
[2020-07-05] MEDS: Gabapentin 100 MG CAP PO SCH (20:21)
[2020-07-05] MEDS: ALPRAZolam 0.25 MG TAB PO SCH (20:21)
[2020-07-06] MEDS: HYDROcodone/Acetaminophen 10/325 mg Tablet PO PRN ×4 (05:15→22:02)
[2020-07-06] MEDS: Levothyroxine Sodium 50 MCG TAB PO SCH (05:15)
[2020-07-06] MEDS: Methocarbamol 500 MG TAB PO SCH ×3 (08:38→20:29)
[2020-07-06] MEDS: Gabapentin 100 MG CAP PO SCH ×2 (08:38→20:29)
[2020-07-06] MEDS: DULoxetine 60 MG CAP PO SCH (08:39)
[2020-07-06] MEDS: Furosemide 40 MG TAB PO SCH (08:39)
[2020-07-06] MEDS: ALPRAZolam 0.25 MG TAB PO SCH ×2 (08:39→20:29)
[2020-07-06] MEDS: Fentanyl 100 MCG/2 ML VIAL SLOW IVP PRN (12:38)
--- NOTE | 2020-07-06 16:56 | PDOC.HOSPP ---
- Subjective Encounter Date: 07/06/20 Subjective: Her back pain is more controlled today. - Objective Vital Signs & Weight: Vital Signs (12 hours) Temp Pulse Resp BP Pulse Ox 07/06/20 15:43 97.6 F 82 14 110/66 97 07/06/20 11:41 98.0 F 76 12 113/71 94 L 07/06/20 08:49 98.2 F 69 12 109/72 93 L 07/06/20 08:39 93 L Weight Weight 135 lb I&O: 07/05/20 07/06/20 07/07/20 06:59 06:59 06:59 Intake Total 900 1600 Output Total 230 1000 Balance 670 600 Result Diagrams: 07/04/20 17:19 07/04/20 17:19 Hospitalist ROS - Medication Medications: Active Medications Generic Name Dose Route Start Last Admin Trade Name Freq PRN Reason Stop Dose Admin Hydrocodone Bitart/Acetaminophen 1 tab 07/05/20 11:43 07/06/20 10:27 Hydrocodone/Acetaminophen 10/325 Mg Tablet PO 1 tab Q4H PRN Administration Mild-Moderate Pain (1-5) Hydrocodone Bitart/Acetaminophen 2 tab 07/05/20 11:43 07/06/20 14:09 Hydrocodone/Acetaminophen 10/325 Mg Tablet PO 2 tab Q8H PRN Administration Moderate to Severe Pain (6-10) Alprazolam 0.5 mg 07/05/20 21:00 07/06/20 08:39 Alprazolam 0.25 Mg Tab PO 0.5 mg BID JARROD Administration Duloxetine HCl 60 mg 07/06/20 09:00 07/06/20 08:39 Duloxetine 60 Mg Cap PO 60 mg DAILY JARROD Administration Fentanyl 25 mcg 07/04/20 20:16 07/06/20 12:38 Fentanyl 100 Mcg/2 Ml Vial SLOW IVP 25 mcg Q4H PRN Administration Pain Furosemide 40 mg 07/06/20 09:00 07/06/20 08:39 Furosemide 40 Mg Tab PO 40 mg DAILY JARROD Administration Gabapentin 100 mg 07/05/20 21:00 07/06/20 08:38 Gabapentin 100 Mg Cap PO 100 mg BID JARROD Administration Levothyroxine Sodium 50 mcg 07/06/20 06:00 07/06/20 05:15 Levothyroxine Sodium 50 Mcg Tab PO 50 mcg 0600 JARROD Administration Methocarbamol 500 mg 07/04/20 21:00 07/06/20 14:09 Methocarbamol 500 Mg Tab PO 500 mg TID JARROD Administration Pantoprazole Sodium 40 mg 07/06/20 08:00 07/06/20 08:39 Pantoprazole 40 Mg Tab PO 40 mg QAM-WM JARROD Administration Throat Lozenges 1 barry 07/04/20 22:23 07/04/20 22:37 Cepastat Lozenges 1 Barry PO 1 barry Q2H PRN Administration Sore Throat - Exam General Appearance: awake alert ENT: normocephalic atraumatic Neck: supple, no JVD Heart: RRR Respiratory: normal chest expansion, no tachypnea Extremities: no cyanosis Neurological: no weakness, no focal deficits Hosp A/P (1) Vertebral compression fracture Code(s): M48.50XA - COLLAPSED VERTEBRA, NEC, SITE UNSP, INIT Status: Acute (2) Postural instability Code(s): R29.3 - ABNORMAL POSTURE Status: Acute (3) Hypothyroidism Code(s): E03.9 - HYPOTHYROIDISM, UNSPECIFIED Status: Chronic Qualifiers: Hypothyroidism type: unspecified Qualified Code(s): E03.9 - Hypothyroidism, unspecified (4) Spinal stenosis Code(s): M48.00 - SPINAL STENOSIS, SITE UNSPECIFIED Status: Chronic - Plan MRI of the thoracic and lumbar spine revealed multiple compression fractures. Patient was evaluated by neurosurgery and they decided against surgical intervention as her findings are chronic in nature. LSO brace was recommended. Continue her current pain management regimen as it seems to have controlled the pain since yesterday. PT and OT evaluation.
[2020-07-07] MEDS: Levothyroxine Sodium 50 MCG TAB PO SCH (05:40)
[2020-07-07] MEDS: HYDROcodone/Acetaminophen 10/325 mg Tablet PO PRN ×4 (06:07→21:47)
[2020-07-07] MEDS: DULoxetine 60 MG CAP PO SCH (08:58)
[2020-07-07] MEDS: Methocarbamol 500 MG TAB PO SCH ×3 (08:58→20:11)
[2020-07-07] MEDS: Gabapentin 100 MG CAP PO SCH ×2 (08:58→20:10)
[2020-07-07] MEDS: ALPRAZolam 0.25 MG TAB PO SCH ×2 (08:59→21:47)
[2020-07-07] MEDS: Furosemide 40 MG TAB PO SCH (09:39)
--- NOTE | 2020-07-07 11:47 | PDOC.HOSPP ---
- Subjective Encounter Date: 07/07/20 Encounter Time: 11:46 Subjective: up with PT, has brace on - Objective Vital Signs & Weight: Vital Signs (12 hours) Temp Pulse Resp BP Pulse Ox 07/07/20 08:55 93/61 07/07/20 08:00 97.4 F L 76 14 98/63 98 07/07/20 03:54 97.9 F 78 18 126/77 96 07/06/20 23:53 97.9 F 85 16 118/67 97 Weight Weight 135 lb I&O: 07/06/20 07/07/20 07/08/20 06:59 06:59 06:59 Intake Total 1600 2410 Output Total 1000 1350 Balance 600 1060 Result Diagrams: 07/04/20 17:19 07/04/20 17:19 Hospitalist ROS - Medication Medications: Active Medications Generic Name Dose Route Start Last Admin Trade Name Freq PRN Reason Stop Dose Admin Hydrocodone Bitart/Acetaminophen 1 tab 07/05/20 11:43 07/07/20 10:20 Hydrocodone/Acetaminophen 10/325 Mg Tablet PO 1 tab Q4H PRN Administration Mild-Moderate Pain (1-5) Hydrocodone Bitart/Acetaminophen 2 tab 07/05/20 11:43 07/07/20 06:07 Hydrocodone/Acetaminophen 10/325 Mg Tablet PO 2 tab Q8H PRN Administration Moderate to Severe Pain (6-10) Alprazolam 0.5 mg 07/05/20 21:00 07/07/20 08:59 Alprazolam 0.25 Mg Tab PO 0.5 mg BID JARROD Administration Duloxetine HCl 60 mg 07/06/20 09:00 07/07/20 08:58 Duloxetine 60 Mg Cap PO 60 mg DAILY JARROD Administration Fentanyl 25 mcg 07/04/20 20:16 07/06/20 12:38 Fentanyl 100 Mcg/2 Ml Vial SLOW IVP 25 mcg Q4H PRN Administration Pain Gabapentin 100 mg 07/05/20 21:00 07/07/20 08:58 Gabapentin 100 Mg Cap PO 100 mg BID JARROD Administration Levothyroxine Sodium 50 mcg 07/06/20 06:00 07/07/20 05:40 Levothyroxine Sodium 50 Mcg Tab PO 50 mcg 0600 JARROD Administration Methocarbamol 500 mg 07/04/20 21:00 12/21/20 08:58 Methocarbamol 500 Mg Tab PO 500 mg TID JARROD Administration Pantoprazole Sodium 40 mg 07/06/20 08:00 07/07/20 08:58 Pantoprazole 40 Mg Tab PO 40 mg QAM-WM JARROD Administration Throat Lozenges 1 barry 07/04/20 22:23 07/04/20 22:37 Cepastat Lozenges 1 Barry PO 1 barry Q2H PRN Administration Sore Throat - Exam General Appearance: awake alert Neck: no JVD Heart: RRR, no murmur Respiratory: CTAB Gastrointestinal: soft, normal bowel sounds Extremities: no edema Hosp A/P (1) Chronic anticoagulation Code(s): 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 Status: Chronic (2) Vertebral compression fracture Code(s): M48.50XA - COLLAPSED VERTEBRA, NEC, SITE UNSP, INIT Status: Acute Qualifiers: Thoracic vertebra fracture level: T7 Fracture healing: with routine healing (3) Atrial fibrillation Code(s): I48.91 - UNSPECIFIED ATRIAL FIBRILLATION Status: Chronic Qualifiers: Atrial fibrillation type: paroxysmal Qualified Code(s): I48.0 - Paroxysmal atrial fibrillation (4) HTN (hypertension) Code(s): I10 - ESSENTIAL (PRIMARY) HYPERTENSION Status: Chronic Qualifiers: Hypertension type: essential hypertension Qualified Code(s): I10 - Essential (primary) hypertension (5) Hypothyroidism Code(s): E03.9 - HYPOTHYROIDISM, UNSPECIFIED Status: Chronic Qualifiers: Hypothyroidism type: unspecified Qualified Code(s): E03.9 - Hypothyroidism, unspecified - Plan cont PT cont analgesics rehab referral
[2020-07-07] MEDS ORDERED: Polyethylene Glycol 3350 17 GM Packet PO PRN (18:15)
[2020-07-07] MEDS: Dabigatran 150 mg Capsule PO SCH (20:11)
[2020-07-08] MEDS: Levothyroxine Sodium 50 MCG TAB PO SCH (05:29)
[2020-07-08] MEDS ORDERED: Losartan 25 MG TAB PO SCH (09:00)
[2020-07-08] MEDS: Methocarbamol 500 MG TAB PO SCH ×3 (09:30→20:01)
[2020-07-08] MEDS: ALPRAZolam 0.25 MG TAB PO SCH ×2 (09:30→21:27)
[2020-07-08] MEDS: Gabapentin 100 MG CAP PO SCH ×2 (09:30→20:01)
[2020-07-08] MEDS: Furosemide 40 MG TAB PO SCH (09:30)
[2020-07-08] MEDS: Dabigatran 150 mg Capsule PO SCH ×2 (09:30→20:01)
[2020-07-08] MEDS: DULoxetine 60 MG CAP PO SCH (09:31)
[2020-07-08] MEDS: HYDROcodone/Acetaminophen 10/325 mg Tablet PO PRN ×4 (09:31→21:26)
[2020-07-08] MEDS: Digoxin 0.25 MG TAB PO SCH (09:33)
--- NOTE | 2020-07-08 10:26 | PDOC.HOSPP ---
- Subjective Encounter Date: 07/08/20 Encounter Time: 10:23 Subjective: still requiring iv analgesia - Objective Vital Signs & Weight: Vital Signs (12 hours) Temp Pulse Resp BP Pulse Ox 07/08/20 09:33 82 07/08/20 09:30 122/74 07/08/20 07:53 97.8 F 90 16 100/64 96 07/08/20 03:33 97.9 F 73 19 132/82 95 07/07/20 23:49 97.6 F 93 19 136/82 97 Weight Weight 135 lb I&O: 07/07/20 07/08/20 07/09/20 06:59 06:59 06:59 Intake Total 2410 1440 Output Total 1350 Balance 1060 1440 Result Diagrams: 07/04/20 17:19 07/04/20 17:19 Hospitalist ROS - Medication Medications: Active Medications Generic Name Dose Route Start Last Admin Trade Name Freq PRN Reason Stop Dose Admin Hydrocodone Bitart/Acetaminophen 1 tab 07/05/20 11:43 07/07/20 21:47 Hydrocodone/Acetaminophen 10/325 Mg Tablet PO 1 tab Q4H PRN Administration Mild-Moderate Pain (1-5) Hydrocodone Bitart/Acetaminophen 2 tab 07/05/20 11:43 07/08/20 09:31 Hydrocodone/Acetaminophen 10/325 Mg Tablet PO 2 tab Q8H PRN Administration Moderate to Severe Pain (6-10) Alprazolam 0.5 mg 07/05/20 21:00 07/08/20 09:30 Alprazolam 0.25 Mg Tab PO 0.5 mg BID JARROD Administration Dabigatran 150 mg 07/07/20 21:00 07/08/20 09:30 Dabigatran 150 Mg Capsule PO 150 mg BID JARROD Administration Digoxin 0.25 mg 07/08/20 09:00 07/08/20 09:33 Digoxin 0.25 Mg Tab PO 0.25 mg TuThSa JARROD Administration Duloxetine HCl 60 mg 07/06/20 09:00 07/08/20 09:31 Duloxetine 60 Mg Cap PO 60 mg DAILY JARROD Administration Fentanyl 25 mcg 07/04/20 20:16 07/06/20 12:38 Fentanyl 100 Mcg/2 Ml Vial SLOW IVP 25 mcg Q4H PRN Administration Pain Furosemide 40 mg 07/08/20 09:00 07/08/20 09:30 Furosemide 40 Mg Tab PO 40 mg DAILY JARROD Administration Gabapentin 100 mg 07/05/20 21:00 07/08/20 09:30 Gabapentin 100 Mg Cap PO 100 mg BID JARROD Administration Levothyroxine Sodium 50 mcg 07/06/20 06:00 07/08/20 05:29 Levothyroxine Sodium 50 Mcg Tab PO 50 mcg 0600 JARROD Administration Losartan Potassium 50 mg 07/08/20 09:00 07/08/20 09:57 Losartan 25 Mg Tab PO 50 mg DAILY JARROD Administration Methocarbamol 500 mg 07/04/20 21:00 07/08/20 09:30 Methocarbamol 500 Mg Tab PO 500 mg TID JARROD Administration Pantoprazole Sodium 40 mg 07/06/20 08:00 07/08/20 09:30 Pantoprazole 40 Mg Tab PO 40 mg QAM-WM JARROD Administration Polyethylene Glycol 17 gm 07/07/20 18:15 07/07/20 18:25 Polyethylene Glycol 3350 17 Gm Packet PO 17 gm DAILYPRN PRN Administration CONSTIPATION Throat Lozenges 1 barry 07/04/20 22:23 07/04/20 22:37 Cepastat Lozenges 1 Barry PO 1 barry Q2H PRN Administration Sore Throat - Exam General Appearance: awake alert Neck: no JVD Heart: RRR, no murmur Respiratory: CTAB Gastrointestinal: soft, normal bowel sounds Extremities: no edema Hosp A/P (1) Chronic anticoagulation Code(s): 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 Status: Chronic (2) Vertebral compression fracture Code(s): M48.50XA - COLLAPSED VERTEBRA, NEC, SITE UNSP, INIT Status: Acute Qualifiers: Thoracic vertebra fracture level: T7 Fracture healing: with routine healing (3) Atrial fibrillation Code(s): I48.91 - UNSPECIFIED ATRIAL FIBRILLATION Status: Chronic Qualifiers: Atrial fibrillation type: paroxysmal Qualified Code(s): I48.0 - Paroxysmal atrial fibrillation (4) HTN (hypertension) Code(s): I10 - ESSENTIAL (PRIMARY) HYPERTENSION Status: Chronic Qualifiers: Hypertension type: essential hypertension Qualified Code(s): I10 - E ssential (primary) hypertension (5) Hypothyroidism Code(s): E03.9 - HYPOTHYROIDISM, UNSPECIFIED Status: Chronic Qualifiers: Hypothyroidism type: unspecified Qualified Code(s): E03.9 - Hypothyroidism, unspecified - Plan cont anticoag, etc for atrial fib cont brace for back cont PT cont analgesics, iv as needed rehab referral
[2020-07-09] MEDS: Levothyroxine Sodium 50 MCG TAB PO SCH (05:20)
[2020-07-09] MEDS ORDERED: Digoxin 0.125 MG TAB PO SCH (09:00)
[2020-07-09] MEDS: HYDROcodone/Acetaminophen 10/325 mg Tablet PO PRN ×4 (09:25→21:29)
[2020-07-09] MEDS: Methocarbamol 500 MG TAB PO SCH ×3 (09:26→20:12)
[2020-07-09] MEDS: Furosemide 40 MG TAB PO SCH (09:26)
[2020-07-09] MEDS: ALPRAZolam 0.25 MG TAB PO SCH ×2 (09:26→21:29)
[2020-07-09] MEDS: DULoxetine 60 MG CAP PO SCH (09:26)
[2020-07-09] MEDS: Gabapentin 100 MG CAP PO SCH ×2 (09:27→20:12)
[2020-07-09] MEDS: Dabigatran 150 mg Capsule PO SCH ×2 (09:27→20:12)
[2020-07-09] MEDS: Losartan 25 MG TAB PO SCH (09:27)
--- NOTE | 2020-07-09 12:08 | PDOC.HOSPP ---
- Subjective Encounter Date: 07/09/20 Encounter Time: 12:04 Subjective: pain continues, able to get to BR with walker and stand-by assist - Objective Vital Signs & Weight: Vital Signs (12 hours) Temp Pulse Resp BP BP Pulse Ox 07/09/20 10:40 98.2 F 85 16 112/69 92 L 07/09/20 09:30 84 07/09/20 09:26 96 07/09/20 08:10 97.9 F 91 16 144/84 H 96 Weight Weight 135 lb I&O: 07/08/20 07/09/20 07/10/20 06:59 06:59 06:59 Intake Total 1440 1680 Balance 1440 1680 Result Diagrams: 07/04/20 17:19 07/04/20 17:19 Hospitalist ROS - Medication Medications: Active Medications Generic Name Dose Route Start Last Admin Trade Name Freq PRN Reason Stop Dose Admin Hydrocodone Bitart/Acetaminophen 1 tab 07/05/20 11:43 07/08/20 21:26 Hydrocodone/Acetaminophen 10/325 Mg Tablet PO 1 tab Q4H PRN Administration Mild-Moderate Pain (1-5) Hydrocodone Bitart/Acetaminophen 2 tab 07/05/20 11:43 07/09/20 09:25 Hydrocodone/Acetaminophen 10/325 Mg Tablet PO 2 tab Q8H PRN Administration Moderate to Severe Pain (6-10) Alprazolam 0.5 mg 07/05/20 21:00 07/09/20 09:26 Alprazolam 0.25 Mg Tab PO 0.5 mg BID JARROD Administration Dabigatran 150 mg 07/07/20 21:00 07/09/20 09:27 Dabigatran 150 Mg Capsule PO 150 mg BID JARROD Administration Digoxin 0.125 mg 07/09/20 09:00 07/09/20 09:30 Digoxin 0.125 Mg Tab PO 0.125 mg SuMoWeFr JARROD Administration Digoxin 0.25 mg 07/08/20 09:00 07/08/20 09:33 Digoxin 0.25 Mg Tab PO 0.25 mg TuThSa JARROD Administration Duloxetine HCl 60 mg 07/06/20 09:00 07/09/20 09:26 Duloxetine 60 Mg Cap PO 60 mg DAILY JARROD Administration Fentanyl 25 mcg 07/04/20 20:16 07/06/20 12:38 Fentanyl 100 Mcg/2 Ml Vial SLOW IVP 25 mcg Q4H PRN Administration Pain Furosemide 40 mg 07/08/20 09:00 07/09/20 09:26 Furosemide 40 Mg Tab PO 40 mg DAILY JARROD Administration Gabapentin 100 mg 07/05/20 21:00 07/09/20 09:27 Gabapentin 100 Mg Cap PO 100 mg BID JARROD Administration Levothyroxine Sodium 50 mcg 07/06/20 06:00 07/09/20 05:20 Levothyroxine Sodium 50 Mcg Tab PO 50 mcg 0600 JARROD Administration Losartan Potassium 50 mg 07/09/20 09:00 07/09/20 09:27 Losartan 25 Mg Tab PO 50 mg DAILY JARROD Administration Methocarbamol 500 mg 07/04/20 21:00 07/09/20 09:26 Methocarbamol 500 Mg Tab PO 500 mg TID JARROD Administration Pantoprazole Sodium 40 mg 07/06/20 08:00 07/09/20 09:26 Pantoprazole 40 Mg Tab PO 40 mg QAM-WM JARROD Administration Polyethylene Glycol 17 gm 07/07/20 18:15 07/07/20 18:25 Polyethylene Glycol 3350 17 Gm Packet PO 17 gm DAILYPRN PRN Administration CONSTIPATION Throat Lozenges 1 barry 07/04/20 22:23 07/04/20 22:37 Cepastat Lozenges 1 Barry PO 1 barry Q2H PRN Administration Sore Throat - Exam General Appearance: awake alert Neck: no JVD Heart: RRR Respiratory: CTAB Gastrointestinal: soft, normal bowel sounds Extremities: no edema Hosp A/P (1) Chronic anticoagulation 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(s): 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 Status: Chronic (2) Vertebral compression fracture Code(s): M48.50XA - COLLAPSED VERTEBRA, NEC, SITE UNSP, INIT Status: Acute Qualifiers: Thoracic vertebra fracture level: T7 Fracture healing: with routine healing (3) Atrial fibrillation Code(s): I48.91 - UNSPECIFIED ATRIAL FIBRILLATION Status: Chronic Qualifiers: Atrial fibrillation type: paroxysmal Qualified Code(s): I48.0 - Paroxysmal atrial fibrillation (4) HTN (hypertension) Code(s): I10 - ESSENTIAL (PRIMARY) HYPERTENSION Status: Chronic Qualifiers: Hypertension type: essential hypertension Qualified Code(s): I10 - Essential (primary) hypertension (5) Hypothyroidism Code(s): E03.9 - HYPOTHYROIDISM, UNSPECIFIED Status: Chronic Qualifiers: Hypothyroidism type: unspecified Qualified Code(s): E03.9 - Hypothyroidism, unspecified - Plan cont anticoag, etc for atrial fib cont brace for back cont PT cont analgesics, iv as needed rehab referral
[2020-07-10] MEDS: HYDROcodone/Acetaminophen 10/325 mg Tablet PO PRN ×2 (04:54→13:03)
[2020-07-10] MEDS: Levothyroxine Sodium 50 MCG TAB PO SCH (04:54)
[2020-07-10] MEDS: Losartan 25 MG TAB PO SCH (08:59)
[2020-07-10] MEDS: ALPRAZolam 0.25 MG TAB PO SCH (09:00)
[2020-07-10] MEDS: DULoxetine 60 MG CAP PO SCH (09:01)
[2020-07-10] MEDS: Gabapentin 100 MG CAP PO SCH (09:01)
[2020-07-10] MEDS: Dabigatran 150 mg Capsule PO SCH (09:01)
[2020-07-10] MEDS: Digoxin 0.25 MG TAB PO SCH (09:01)
[2020-07-10] MEDS: Furosemide 40 MG TAB PO SCH (09:01)
[2020-07-10] MEDS: Methocarbamol 500 MG TAB PO SCH ×2 (09:02→15:59)
[2020-07-10 11:59] VITALS: BP 123/71
[2020-07-10 15:48] VITALS: TEMP 97.6
--- NOTE | 2020-07-10 18:28 | PDOC.DS.DS ---
Provider - Provider Date of Admission: 07/04/20 20:06 Date of Discharge: 07/10/20 Admitting Provider: William Mora DO Primary Care Physician: Osorio Garcia MD Course - Hospital Course Hospital Course: HISTORY OF PRESENT ILLNESS ON ADMISSION: Is an 84-year-old female who passed around and fell. She presents complaining of severe back pain. Patient did fall and hit her head and her accident. She is seen at [facility] and did undergo a CT of the chest abdomen pelvis as well as CT of the head and C-spine. No acute abnormality was found, but she continued to have worsening back pain. For that reason she was transferred to emergency room. Reviewing her records patient was admitted to the hospital in July of this year with complaint of left-sided rib pain and shortness of breath, found to have multiple left rib fractures after she tripped and fell, landing against her car mirror. On the hospital she received physical therapy and was discharged to rehabilitation center, then home. At home she did receive discal therapy as well, but continued to be unsteady on her feet and has had multiple falls as per her . BRIEF HOSPITAL COURSE: 82 chill female with past medical history of atrial fibrillation, sleep apnea, hypothyroidism, degenerative disc disease, chest of heart failure, GERD, depression, anxiety, who presented to the emergency room sent in from [facility] ER on 07/04/2020 for a fall with head strike. Her CT chest, abdomen, pelvis, head, C-spine were all negative for acute abnormalities. CT of the thoracic spine did show a subacute T3 superior endplate compression deformity with 10% to 15% height loss, a similar L1 burst fracture dating back to 2017. No acute thoracic spine fracture, multiple left old rib fractures no acute rib fractures. Patient also had left kidney cyst for which nonemergent follow-up was recommended. Patient was admitted to the hospital for pain management and PT OT evaluation. Patient's pain was well managed and she is on chronic opioids which are prescribed by her orthopedist Dr. Oneida tanner. Physical therapy evaluated and recommended inpatient rehab. Patient and however refused inpatient rehab services due to the holiday and requested to be discharged home. I had a detailed discussion with the patient and her about my concern for repeated falls at home and potential for falls that would induce potentially fatal injuries and the need for inpatient rehab. Patient and both understood the risks of returning home without rehab therapy and have requested discharge from the hospital. Case management has set up home health services fo r the patient as well as [facility]. Since patient was not able to get her home opioid prescription refilled due to the holidays I have prescribed 6 pills of tramadol for patient to use as needed until she is able to refill this prescription. 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 Pertinent Studies: CT OF BRAIN PERFORMED WITHOUT CONTRAST ENHANCEMENT: HISTORY: Followup of recent fall. COMPARISON: 07/04/2020 study. FINDINGS: There is generalized ventricular and sulcal prominence. There is decreased attenuation to the periventricular white matter. There are no signs of intracerebral hemorrhage or extraaxial fluid collections. Postoperative changes in the region of the right mastoids are noted. The visualized sinuses are clear. IMPRESSION: No acute intracranial abnormality. MRI OF THORACIC SPINE PERFORMED WITHOUT CONTRAST ENHANCEMENT: HISTORY: Fall with back pain. COMPARISON: CT examination done 07/04/2020. FINDINGS: The L1 burst fracture is again noted. Subtle increased signal change on the STIR sequence at the T11 level is felt to most likely be on the basis of a hemangioma. There is a very subtle superior end plate compression fracture of T7. There is diffuse marrow edema change associated with this. The T3 changes noted on the previous CT examination showed no evidence of any marrow edema change to suggest that this is acute. At the T7 level, there is some very minimal right-sided bony retropulsion, but there is no canal narrowing. IMPRESSION: 1. Acute T7 compression injury with only very minimal loss of vertebral body height at the superior end plate. No evidence of any significant bony retropulsion. 2. Old- appearing subtle compression changes of the superior end plate of T3. MRI OF LUMBAR SPINE PERFORMED WITHOUT CONTRAST ENHANCEMENT: HISTORY: The patient had a fall several days ago and has had worsening back pain. Currently on a blood thinner. COMPARISON: A CT examination that performed yesterday. FINDINGS: The burst-type fracture with severe retropulsion of the L1 vertebral body is again demonstrated. The bony retropulsion is approximately 9-10 mm. Postoperative changes at the L4-5 and L5-S1 levels are seen with a lag-type screw placed through the L4-L5 vertebral bodies and S1 vertebral body. Posterior intraspinous spaces are also present at this level. I do not see any signs of any epidural collection. No significant periaortic adenopathy. A T2 hyperintense lesion involving the left kidney is most likely a cyst. T12-L1: No significant canal stenosis at this disk level. L1-2: There is no canal stenosis at this disk level; however, superior to this there is a moderate degree of stenosis related to the bony retropulsion and there is also severe bilateral foraminal narrowing at this level. L2-3: Degenerative facet changes at this level asymmetrically involve the left side. There is no significant central canal stenosis, but there is marked left-sided foraminal narrowing. L3-4: Moderately severe canal stenosis at this level. Facet and ligamentous hypertrophic change. There is also a disk bulge present. There is marked left and right foraminal narrowing. L4-5: The canal shows moderately severe stenosis at this level. There is marked right and moderate left foraminal stenosis. L5-S1: Moderate bilateral foraminal stenosis at this level. The canal is borderline narrowed. IMPRESSION: Multilevel areas of canal and foraminal stenosis as discussed above. Prominent bony retropulsion of the L1 vertebral body burst fracture has a similar appearance to the previous CT exam of 07/04/2020. - Labs Lab Results: 07/04/20 17:19 07/04/20 17:19 - Physical Exam Vitals: Vital Signs (12 hours) Temp Pulse Resp BP Pulse Ox 07/10/20 15:30 97.6 F 64 18 94 L 07/10/20 09:01 81 07/10/20 07:32 97.7 F 72 18 123/71 94 L Weight Weight 135 lb Physical Exam: The patient was seen and examined on the day of discharge. Any x3, no acute distress Normocephalic atraumatic Neck supple no JVD Regular rate and rhythm, no murmurs rubs or gallops Clear to auscultation bilaterally Abdomen soft nontender with normal active bowel sounds No muscle atrophy, no lower extremity edema Alert and oriented x3, no weakness or focal deficits Problem - Discharge Plan Plan of Treatment: Patient will need close outpatient follow-up with her primary care provider and orthopedist. Patient has also been signed up for home health and home physical therapy. Recommended inpatient level of rehab, however patient and family refused due to holidays. Instructed patient to return to emergency room should they develop any new or worsening symptoms and to take his morning precautions as possible to avoid falls at home. Plan - Discharge Medications Prescriptions: traMADol HCl [Tramadol HCl] 50 mg PO BID PRN #6 tablet PRN Reason: Moderate To Severe Pain (6-10) Home Medications: Medication Instructions Recorded Confirmed Type ALPRAZolam [Xanax] 0.5 mg PO BID 05/17/15 07/05/20 History Dabigatran [Pradaxa] 150 mg PO BID 05/17/15 07/05/20 History Esomeprazole Magnesium [NexIUM] 40 mg PO QAM-WM 05/17/15 07/05/20 History Levothyroxine Sodium [Synthroid] 50 mcg PO DAILY 05/17/15 07/05/20 History Irbesartan 150 mg PO DAILY 08/25/18 07/05/20 History DULoxetine [Cymbalta] 60 mg PO DAILY 11/06/18 07/05/20 History Digoxin [Lanoxin] 0.125 mg PO ASDIR 07/05/20 07/05/20 History Furosemide [Lasix] 40 mg PO DAILY 07/05/20 07/05/20 History Gabapentin 100 mg PO BID 07/05/20 07/05/20 History HYDROcodone Bit/APAP 10/325 [[employer]] 1 tab PO Q8H PRN 07/05/20 07/05/20 History HYDROcodone Bit/APAP 10/325 [[employer]] 2 tab PO Q8H PRN 07/05/20 07/05/20 History Cyclobenzaprine [Flexeril] 10 mg PO TID PRN 07/09/20 07/09/20 History traMADol HCl [Tramadol HCl] 50 mg PO BID PRN #6 tablet 07/10/20 Rx Allergies: morphine Allergy (Verified 10/06/19 16:01) go nuts prednisone Allergy (Verified 10/06/19 16:01) go nuts Sulfa (Sulfonamide Antibiotics) Allergy (Verified 10/06/19 16:01) unknown - Discharge Instructions Activity:: Activity Restrictions (With assist) Nourishment:: Heart Healthy Diet Therapies:: Home Health, Physical Therapy Additional Therapy Instructions:: Recommend inpatient rehab, however patient refused. - Follow up Plan Referrals: [facility] [Outside] Osorio Garcia MD [Primary Care Provider] - Lj Malagon MD [Active] - Disposition: HOME Quality - Care Measures CORE MEASURES:: N/A
== END 2020-07-10 17:01 | disposition home or self-care (01) | DRG 552 ==
LOC: ERS 15:56 → SURG A 20:06
PROVIDERS: ADMIT Family Medicine; ATTEND Internal Medicine
DX: S22.038A Other fracture of third thoracic vertebra, initial encounter for closed fracture (principal); W01.0XXA Fall on same level from slipping, tripping and stumbling without subsequent striking against object, initial encounter; Z20.828 Contact with and (suspected) exposure to other viral communicable diseases; S22.42XD Multiple fractures of ribs, left side, subsequent encounter for fracture with routine healing; S32.011D Stable burst fracture of first lumbar vertebra, subsequent encounter for fracture with routine healing; G47.33 Obstructive sleep apnea (adult) (pediatric); E03.9 Hypothyroidism, unspecified; I50.9 Heart failure, unspecified; K21.9 Gastro-esophageal reflux disease without esophagitis; F41.9 Anxiety disorder, unspecified; F32.9 Major depressive disorder, single episode, unspecified; N28.1 Cyst of kidney, acquired; R29.6 Repeated falls; R42 Dizziness and giddiness; G89.29 Other chronic pain; R29.3 Abnormal posture; M48.00 Spinal stenosis, site unspecified; I11.0 Hypertensive heart disease with heart failure; I48.0 Paroxysmal atrial fibrillation; Z88.2 Allergy status to sulfonamides; Z88.8 Allergy status to other drugs, medicaments and biological substances; Z79.899 Other long term (current) drug therapy; Z79.01 Long term (current) use of anticoagulants; Z79.890 Hormone replacement therapy; Z87.891 Personal history of nicotine dependence; Z90.710 Acquired absence of both cervix and uterus; Z88.5 Allergy status to narcotic agent
CPT/HCPCS: 70450; 72128; 72131; 72146; 72148; 72170; 80053; 85025; 87635; 96374; 96375; J1170; J2270; J2405; J3010; U0003